=== PATIENT | male | born 1990 | race Caucasian/White ===

== ENCOUNTER 2022-01-11 12:15 | Observation (INO) | payer OTHER ==
--- OUTSIDE RECORDS SUMMARY | 2022-01-11 12:19 | XMS REPORT | Continuity of Care Document ---
:1990 Author Organization [facility] t Address [address] [place] [address] Care Team Providers Name Role Phone Pcp, Does Not Have A Primary Care Physician ANJU Attending Clinician Unavailable Nurse, Db Urgent [facility] Attending Clinician Unavailable Anju DEL VALLE Attending Clinician Provider, Urgent Care Attending Clinician Unavailable Elsa KENNEDY Attending Clinician ELSA Attending Clinician Unavailable Payers Payer Name Policy Type Policy Number Effective Date Expiration Date [facility] [id number] 2019 CHOICE 00:00:00 Problems Condition Condition Condition Status Onset Resolution Last Treating Co mments Source Name Details Category Date Date Treatment Clinician Date No known No known Disease Unive rs active active ity of problems problems [facility] Allergies, Adverse Reactions, Alerts Allergy Allergy Status Severity Reaction(s) Onset Inactive Treating Comm ents Source Name Type Date Date Clinician NO KNOWN Drug Active Univers ALLERGIE Class ity of S [facility] Social History Social Habit Start Date Stop Date Quantity Comments Source Exposure to Not sure University SARS-CoV-2 [facility] (event) [place] Alcohol intake 2021-03-14 2021-03-14 Current drinker Unive rsity of 00:00:00 00:00:00 of alcohol [facility] (finding) [place] Tobacco use and 2021-03-14 2021-03-14 Never used Universit y of exposure 00:00:00 00:00:00 [facility] Sex Ass[birth year] At [birth year] Universit y of 00:00:00 00:00:00 [facility] Smoking Status Start Date Stop Date Source Former smoker 2021-03-14 00:00:00 2021-03-14 00:00:00 [facility] Medications Ordered Filled Start Stop Current Ordering Indication Dosage Frequency Signature Comments Components Source Medication Medication Date Date Medication? Clinician (SIG) Name Name No known No Univers medications 03-14 ity of 10:56: [place] [facility] cephALEXin 2020- No [id number] 500mg Take 1 Univers 500 mg 03-14 tablet by ity of tablet 00:00: 04:59 mouth 2 [place] 00 :00 (two) Medical times Branch daily for 5 days. May use capsules Vital Signs Vital Name Observation Time Observation Value Comments Source Systolic blood 2021-03-14 15:36:00 123 mm[Hg] Univer sity [facility] Diastolic blood 2021-03-14 15:36:00 72 [facility]Hg[facility] 2021-03-14 15:36:00 67 /min [facility] Body temperature 2021-03-14 15:36:00 36.89 [facility] Respiratory rate 2021-03-14 15:36:00 13 /min [facility] Body height 2021-03-14 15:36:00 177.8 cm [facility] Body weight 2021-03-14 15:36:00 74.844 kg [facility] BMI 2021-03-14 15:36:00 23.68 kg/m2 [facility] Oxygen saturation in 2021-03-14 15:36:00 98 /min [facility] Arterial blood by [facility] Pulse oximetry Branch Procedures This patient has no known procedures. Encounters Start End Encounter Admission Attending Care Care Encounter Source Date/Time Date/Time Type Type Clinicians Facility Department ID 2022-01-09 2022-01-09 Outpatient R ANJU [facility] [id number] Univers 13:20:00 13:35:25 ELVISBRAEDEN johnson [facility]ly [facility] 2022-01-09 2022-01-09 Nurse Nurse, James [facility] [id number] Univers 13:20:00 13:35:25 [id number] [facility] [id number] Holger as LIZANDRO?BLEA [phone] Al farhad STONEEY [address] [place] [facility] 2022-01-09 2022-01-09 Outpatient R [facility] [id number] Univers 13:20:00 13:20:00 [id number] [facility] 2021-03-14 2021-03-14 Urgent Provider, [facility] Urgent [facility] [id number] Univers 10:21:38 10:41:38 [facility] [id number] [facility] [place] [id number] Holger as Professio [phone] Al farhad fajardo [address] [place] [address] Office [address] 2021-03-14 2021-03-14 [id number] Univers 10:20:00 10:20:00 ALCIDES [facility] Results This patient has no known results.
[2022-01-11 14:04] LABS: Urine Blood Negative (Negative); Urine Glucose Negative (Negative); Urine Protein Negative (Negative); Urine Specific Gravity >=1.030 (1.005-1.030); Urine pH 5.5 (5.0-7.0)
[2022-01-11] MEDS ORDERED: FAMOTIDINE 20 MG/2 ML VIAL IV ONE (14:11)
[2022-01-11] MEDS ORDERED: NA CHLORIDE 0.9% 1,000 ML ONE ×2 (14:11→22:15)
[2022-01-11] MEDS ORDERED: CEFTRIAXONE 1000 MG/VIAL ONE (14:11)
[2022-01-11 14:22] LABS: Absolute Lymphocytes (CBC) 1.9 K/uL (0.7-4.9); Hematocrit 44.5 % (39.6-49.0); Lymphocytes % 21.9 % (15.3-44.8); RBC Red Blood Cell Count 4.78 M/uL (4.33-5.43)
[2022-01-11 14:39] LABS: Bilirubin Direct 0.2 mg/dL (0-0.2); Bilirubin Total 0.8 mg/dL (0.2-1.0); Potassium 3.6 mmol/L (3.5-5.1); Protein, Total 7.5 g/dL (6.4-8.2)
--- NOTE | 2022-01-11 15:33 | RAD REPORT ---
EXAM DESCRIPTION: CT - Abdomen Pelvis W Contrast - 01/11/2022 2:57 pm CLINICAL HISTORY: Abdominal pain COMPARISON: none. TECHNIQUE: Computed axial tomography of the abdomen pelvis was obtained. 100 cc Isovue-300 was admin istered intravenously. Oral contrast was not requested which limits evaluation of bowel. All CT scans are performed using dose optimization technique as appropriate and may include automated exposure control or mA/KV adjustment according to patient size. FINDINGS: The liver, spleen, pancreas, adrenal and kidneys appear unremarkable. The appendix is mildly dilated. It contains submucosal lipomatosis. There is minimal adjacent strandi ng. There is no evidence of diverticulitis. IMPRESSION: The appendix contains submucosal lipomatosis probably an incidental finding. The appendi x is mildly enlarged. There is a minimal stranding adjacent to the appendix. This is equivocal for ap pendicitis and should be correlated clinically.
--- NOTE | 2022-01-11 16:32 | ER ---
Nurse's Notes [facility] Name: John Hoffmann Age: 31 yrs Sex: Male : 1990 Arrival Date: 01/11/2022 Time: 12:19 Bed 30 Private MD: Diagnosis: Lower abdominal pain, unspecified-equivocal appendicitis;Nausea Presentation: 01/11 12:43 Chief complaint: Patient states: " I've been seeing a urologist for abut 3 weeks now ph for testicular pain but today it's radiating to my penis." Also reports frequent urination at night, epigastric pain and nausea. Coronavirus screen: Vaccine status: Patient reports being unvaccinated. Ebola Screen: No symptoms or risks identified at this time. Initial Sepsis Screen: Does the patient meet any 2 criteria? No. Patient's initial sepsis screen is negative. Does the patient have a suspected source of infection? No. Patient's initial sepsis screen is negative. Risk Assessment: Do you want to hurt yourself or someone else? Patient reports no desire to harm self or others. Onset of symptoms. 12:43 Method Of Arrival: Ambulatory ph 12:43 Acuity: FRENCH 3 ph Historical: - Allergies: 12:46 No Known Allergies; ph - Home Meds: 12:46 Humira subcutaneous [Active]; ph 18:57 tramadol 50 mg oral tab 1 tab BID for pain [Active]; tizanidine 4 mg oral tab 1 tab eo2 nightly [Active]; alfuzosin 10 mg oral Tb24 1 tab nightly [Active]; pantoprazole 40 mg oral TbEC every other day [Active]; - PMHx: 12:46 ankylosing spondylitis; ph 18:57 chronic back pain; eo2 - Immunization history:: Adult Immunizations unknown. - Social history:: Smoking status: Patient denies any tobacco usage or history of. Screenin:00 Abuse screen: Denies threats or abuse. Denies injuries from another. eo2 14:00 Nutritional screening: No deficits noted. Tuberculosis screening: No symptoms or risk eo2 factors identified. Fall Risk None identified. Assessment: 14:15 General: Appears in no apparent distress. distressed, Behavior is calm, cooperative. eo2 Pain: Complains of pain in pelvis and perineum and groin and suprapubic area and epigastric area. Neuro: Level of Consciousness is awake, alert, obeys commands, Oriented to person, place, time, situation, Denies dizziness, headache. Cardiovascular: Denies chest pain, shortness of breath, Heart tones S1 S2 Capillary refill < 3 seconds. Respiratory: Reports shortness of breath at rest Airway is patent Trachea midline Respiratory effort is even, unlabored, Denies cough, shortness of breath. GI: Abdomen is flat, Bowel sounds present X 4 quads. Reports epigastric pain, nausea. : Reports urinary frequency. Vital Signs: 12:43 BP 144 / 95; Pulse 90; Resp 18; Temp 97.9; Pulse Ox 100% on R/A; Weight 78.93 kg; ph Height 5 ft. 10 in. (177.80 cm); 14:00 BP 118 / 81; Pulse 79; Resp 15; Pulse Ox 100% ; Pain 7/10; eo2 17:00 BP 109 / 79; Pulse 68; Resp 15; Pulse Ox 99% ; Pain 0/10; eo2 18:00 BP 96 / 66; Pulse 69; Resp 15; Pulse Ox 100% ; Pain 0/10; eo2 12:43 Body Mass Index 24.97 (78.93 kg, 177.80 cm) ph ED Course: 12:19 Patient arrived in ED. mr 12:46 Triage completed. ph 12:48 Arm band placed on. ph 13:14 Chris Mcgarry MD is Attending Physician. mela 13:15 Xochilt Denise RN is Primary Nurse. eo2 13:57 Urine Culture Sent. mh5 14:00 No provider procedures requiring assistance completed. eo2 14:02 Inserted saline lock: 22 gauge in right antecubital area, using aseptic technique. eo2 Blood collected. 14:15 Patient has correct armband on for positive identification. Placed in gown. Bed in low mh5 position. Call light in reach. Warm blanket given. Pulse ox on. NIBP on. 14:15 Urine collected: clean catch specimen, clear. mh5 14:32 Basic Metabolic Panel Sent. eo2 14:57 CT Abd/Pelvis - IV Contrast Only In Process Unspecified. EDMS 16:27 Bridgett Menendez MD is Hospitalizing Provider. mela 19:10 Report given to Satish RECINOS. eo2 Administered Medications: 14:25 Drug: NS 0.9% 1000 ml Route: IV; Rate: 1 bolus; Site: right antecubital; eo2 18:41 Follow up: Response: No adverse reaction; IV Status: Completed infusion; IV Intake: eo2 1000ml 14:25 Drug: Pepcid (famotidine) 20 mg Route: IVP; Site: right antecubital; eo2 15:30 Follow up: Response: No adverse reaction eo2 14:28 Drug: Rocephin (cefTRIAXone) 1 grams Route: IV; Rate: per protocol; Site: right eo2 antecubital; 15:30 Follow up: Response: No adverse reaction; IV Status: Completed infusion; IV Intake: [id number] Intake: 15:30 IV: 10ml; Total: 10ml. eo2 18:41 IV: 1000ml; Total: 1010ml. eo2 Outcome: 16:31 Decision to Hospitalize by Provider. [facility] 01/12 14:28 Patient left the ED. Signatures: Dispatcher [employer] EDMS Chris Mcgarry MD MD cha Rivera, Fauzia Francis RN RN Kathy Sterling RN RN Zulema Lynn [facility] Xochilt Denise RN RN eo2 Corrections: (The following items were deleted from the chart) 01/11 18:41 16:00 IV Status: Completed infusion; IV Intake: 1000ml eo2 eo2 19:10 12:46 Home Meds: Tramadol Oral; eo2
--- NOTE | 2022-01-11 16:32 | EDPHYS ---
Physician Documentation [facility] Name: John Hoffmann Age: 31 yrs Sex: Male : 1990 Arrival Date: 01/11/2022 Time: 12:19 Bed 30 Private MD: LEAH Physician Chris Mcgarry HPI: 01/11 13:30 This 31 yrs old Male presents to ER via Ambulatory with complaints of Urinary mela Problem, Groin Pain, Nausea. 13:30 The patient presents to the emergency department with nausea, that is mild. Onset: The mela symptoms/episode began/occurred 1 week(s) ago. Possible causes: unknown. The symptoms are aggravated by nothing. The symptoms are alleviated by remaining still. Associated signs and symptoms: The patient has no apparent associated signs or symptoms. Severity of symptoms: At their worst the symptoms were mild in the emergency department the symptoms are unchanged. The patient has not experienced similar symptoms in the past. Historical: - Allergies: 12:46 No Known Allergies; ph - Home Meds: 12:46 Humira subcutaneous [Active]; ph 18:57 tramadol 50 mg oral tab 1 tab BID for pain [Active]; tizanidine 4 mg oral tab 1 tab eo2 nightly [Active]; alfuzosin 10 mg oral Tb24 1 tab nightly [Active]; pantoprazole 40 mg oral TbEC every other day [Active]; - PMHx: 12:46 ankylosing spondylitis; ph 18:57 chronic back pain; eo2 - Immunization history:: Adult Immunizations unknown. - Social history:: Smoking status: Patient denies any tobacco usage or history of. ROS: 13:31 Constitutional: Negative for fever, chills, and weight loss, Eyes: Negative for injury, mela pain, redness, and discharge, ENT: Negative for injury, pain, and discharge, Neck: Negative for injury, pain, and swelling, Cardiovascular: Negative for chest pain, palpitations, and edema, Respiratory: Negative for shortness of breath, cough, wheezing, and pleuritic chest pain, Back: Negative for injury and pain, MS/Extremity: Negative for injury and deformity, Skin: Negative for injury, rash, and discoloration, Neuro: Negative for headache, weakness, numbness, tingling, and seizure, Psych: Negative for depression, anxiety, suicide ideation, homicidal ideation, and hallucinations, Allergy/Immunology: Negative for hives, rash, and allergies, Endocrine: Negative for neck swelling, polydipsia, polyuria, polyphagia, and marked weight changes, Hematologic/Lymphatic: Negative for swollen nodes, abnormal bleeding, and unusual bruising. 13:31 Abdomen/GI: Positive for abdominal pain, of the epigastric area and suprapubic area. 13:31 : Positive for urinary symptoms, penile pain, of the perineum. Exam: 13:31 Constitutional: This is a well developed, well nourished patient who is awake, alert, mela and in no acute distress. Head/Face: Normocephalic, atraumatic. Eyes: Pupils equal round and reactive to light, extra-ocular motions intact. Lids and lashes normal. Conjunctiva and sclera are non-icteric and not injected. Cornea within normal limits. Periorbital areas with no swelling, redness, or edema. ENT: Nares patent. No nasal discharge, no septal abnormalities noted. Tympanic membranes are normal and external auditory canals are clear. Oropharynx with no redness, swelling, or masses, exudates, or evidence of obstruction, uvula midline. Mucous membranes moist. Neck: Trachea midline, no thyromegaly or masses palpated, and no cervical lymphadenopathy. Supple, full range of motion without nuchal rigidity, or vertebral point tenderness. No Meningismus. Chest/axilla: Normal chest wall appearance and motion. Nontender with no deformity. No lesions are appreciated. Cardiovascular: Regular rate and rhythm with a normal S1 and S2. No gallops, murmurs, or rubs. Normal PMI, no JVD. No pulse deficits. Respiratory: Lungs have equal breath sounds bilaterally, clear to auscultation and percussion. No rales, rhonchi or wheezes noted. No increased work of breathing, no retractions or nasal flaring. Back: No spinal tenderness. No costovertebral tenderness. Full range of motion. Male : Normal genitalia with no discharge or lesions. Skin: Warm, dry with normal turgor. Normal color with no rashes, no lesions, and no evidence of cellulitis. Neuro: Awake and alert, GCS 15, oriented to person, place, time, and situation. Cranial nerves II-XII grossly intact. Motor strength 5/5 in all extremities. Sensory grossly intact. Cerebellar exam normal. Normal gait. Psych: Awake, alert, with orientation to person, place and time. Behavior, mood, and affect are within normal limits. 13:31 Abdomen/GI: Inspection: abdomen appears normal, Bowel sounds: normal, Palpation: mild abdominal tenderness, in the epigastric area, Liver: no appreciated palpable abnormalities, Hernia: not appreciated. 13:31 : CVA tenderness, is absent, Male external genitalia: normal, Bladder: is normal, Rectal exam: is normal, Sexual behavior: the patient is sexually active, and reports a single partner. 15:46 ECG was reviewed by the Attending Physician. mela Vital Signs: 12:43 BP 144 / 95; Pulse 90; Resp 18; Temp 97.9; Pulse Ox 100% on R/A; Weight 78.93 kg; ph Height 5 ft. 10 in. (177.80 cm); 14:00 BP 118 / 81; Pulse 79; Resp 15; Pulse Ox 100% ; Pain 7/10; eo2 17:00 BP 109 / 79; Pulse 68; Resp 15; Pulse Ox 99% ; Pain 0/10; eo2 18:00 BP 96 / 66; Pulse 69; Resp 15; Pulse Ox 100% ; Pain 0/10; eo2 12:43 Body Mass Index 24.97 (78.93 kg, 177.80 cm) ph MDM: 13:14 Patient medically screened. mela 13:35 Differential diagnosis: Nonspecific abd pain, UTI, prostatitis, urethritis. Data mela reviewed: vital signs, nurses notes, lab test result(s), radiologic studies. Data interpreted: secured entrance monitor: not applicable for this patient encounter. rate is 90 beats/min, rhythm is regular, Pulse oximetry: on room air is 100 %. Test interpretation: by ED physician or midlevel provider:. Counseling: I had a detailed discussion with the patient and/or guardian regarding: the historical points, exam findings, and any diagnostic results supporting the discharge/admit diagnosis, lab results, radiology results. 01/11 13:29 Order name: Basic Metabolic Panel; Complete Time: 14:41 [facility] 01/11 13:29 Order name: CBC with Diff; Complete Time: 14:38 [facility] 01/11 13:29 Order name: Hepatic Function; Complete Time: 14:41 [facility] 01/11 13:29 Order name: Lipase; Complete Time: 14:41 [facility] 01/11 13:29 Order name: Urine Culture [facility] 01/11 14:04 Order name: Urine Dipstick-Ancillary; Complete Time: 14:16 [facility] 01/11 13:29 Order name: CT Abd/Pelvis - IV Contrast Only; Complete Time: 15:43 [facility] 01/11 17:14 Order name: SARS-COV-2 RT PCR (Document "Date of Onset" if Symptomatic); Complete Time: iw 21:07 01/11 21:20 Order name: CBC with Automated Diff [facility] 01/11 21:20 Order name: CBC with Automated Diff [facility] 01/11 21:20 Order name: Comprehensive Metabolic Panel [facility] 01/11 21:20 Order name: Comprehensive Metabolic Panel [facility] 01/11 21:27 Order name: Lipase [facility] 01/12 03:28 Order name: Lipase [facility] 01/11 13:29 Order name: IV Saline Lock; Complete Time: 14:31 [facility] 01/11 13:29 Order name: Labs collected and sent; Complete Time: 14:31 [facility] 01/11 13:29 Order name: Urine Dipstick-Ancillary (obtain specimen); Complete Time: 13:58 [facility] 01/11 16:33 Order name: Abdomen [facility] 01/11 21:20 Order name: CONS Physician Consult [facility] 01/11 21:20 Order name: NPO [facility] 01/12 08:14 Order name: CT [facility] EC:46 Rate is 79 beats/min. Rhythm is regular. QRS [place] is Normal. NC interval is normal. QRS mela interval is normal. QT interval is normal. No Q waves. T waves are Normal. No ST changes noted. Clinical impression: Normal ECG and No evidence of ischemia. Interpreted by me. Reviewed by me. Administered Medications: 14:25 Drug: NS 0.9% 1000 ml Route: IV; Rate: 1 bolus; Site: right antecubital; eo2 18:41 Follow up: Response: No adverse reaction; IV Status: Completed infusion; IV Intake: eo2 1000ml 14:25 Drug: Pepcid (famotidine) 20 mg Route: IVP; Site: right antecubital; eo2 15:30 Follow up: Response: No adverse reaction eo2 14:28 Drug: Rocephin (cefTRIAXone) 1 grams Route: IV; Rate: per protocol; Site: right eo2 antecubital; 15:30 Follow up: Response: No adverse reaction; IV Status: Completed infusion; IV Intake: [id number] Disposition Summary: 01/11/22 16:31 Hospitalization Ordered Hospitalization Status: Observation [facility] Provider: Bridgett Menendez cha Condition: Stable mela Problem: new mela Symptoms: have improved mela Bed/Room Type: Standard mela Location: [facility] ER HOLD(01/11/22 21:48) Room Assignment: ERHOLD-(01/11/22 21:48) cg Diagnosis - Lower abdominal pain, unspecified - equivocal appendicitis mela - Nausea mela Discharge Instructions: - Discharge Summary Sheet mela - Abdominal Pain, Adult mela - Dysuria mela - Pelvic Pain, Male mela Forms: - Medication Reconciliation Form mela - SBAR form [facility] Prescriptions: - Ibuprofen 600 mg Oral Tablet - take 1 tablet by ORAL route every 6 hours As needed take with food; 20 tablet; mela Refills: 0, Product Selection Permitted - Doxycycline Hyclate 100 mg Oral Tablet - take 1 tablet by ORAL route every 12 hours; 20 tablet; Refills: 0, Product [facility] Selection Permitted - Tylenol-Codeine #3 300 mg-30 mg Oral - take 2 tablet by ORAL route every 6 hours; 20 tablet; Refills: 0, Product [facility] Selection Permitted Signatures: Dispatcher [employer] EDChris Rodríguez MD MD cha Hall, Patricia RN RN Dinah Lopes RN RN Xochilt Denise RN RN eo2 Sweta Velasco PA PA sb3 Corrections: (The following items were deleted from the chart) 19:10 12:46 Home Meds: Tramadol Oral; eo2 21:48 16:31 Telemetry/MedSurg (observation) [facility] 21:48 16:31 [facility]
[2022-01-11] MEDS ORDERED: MORPHINE 2 MG/ML SYR IV PRN (21:17)
[2022-01-11] MEDS ORDERED: ACETAMINOPHEN 500 MG TAB PO PRN (21:17)
[2022-01-11] MEDS ORDERED: ONDANSETRON 4 MG/2 ML VIAL IV PRN (21:17)
--- NOTE | 2022-01-11 21:22 | P.HP ---
Certification for Inpatient Patient admitted to: Inpatient With expected LOS: >2 Midnights Patient will require the following post-hospital care: None Practitioner: I am a practitioner with admitting privileges, knowledge of patient current condition, hospital course, and medical plan of care. Services: Services provided to patient in accordance with Admission requirements found in Title 42 Section 412.3 of the Code of Federal Regulations Patient History Date of Service: 01/11/22 Reason for admission: Abdominal pain History of Present Illness: Patient is a 31-year-old who came to the hospital with right lower quadrant abdominal pain. Patient has had multiple work-ups in the past for ankylosing spondylitis. However, he states that his HLA-B 27 gene was negative. He was still started on Humira for treatment. He apparently has significant inflammation of his SI joint-sacroiliac. Patient has been having significant pain. Patient came to the ER and CT revealed equivocal appendicitis. Decision was made to admit the patient to the hospital for further evaluation. Spoke to general surgery and will repeat the CT scan this morning. Allergies No Known Allergies Allergy (Unverified 01/11/22 22:04) Home Medications: Adalimumab [Humira] 40 mg SQ [facility] 01/11/22 Alfuzosin HCl 10 mg PO BEDTIME 01/11/22 Pantoprazole [Protonix Tab*] 40 mg PO [facility]EC[facility] 01/11/22 Tizanidine HCl 4 mg PO BEDTIME 01/11/22 Tramadol HCl [Ultram] 50 mg PO BID 01/11/22 - Past Medical/Surgical History -: Sacroiliitis Past Surgical History: Patient denies surgical history - Family History Father Family History: Reviewed- Non-Contributory - Social History Smoking Status: Never smoker Alcohol use: No CD- Drugs: No Review of Systems 10-point ROS is otherwise unremarkable Physical Examination - Vital Signs Temperature: 98 F Blood Pressure: 120/80 Pulse: 80 Respirations: 18 Pulse Ox (%): 95 - Physical Exam General: Alert, In no apparent distress, Oriented x3 HEENT: Atraumatic, PERRLA, Mucous membr. moist/pink, EOMI, Sclerae nonicteric Neck: Supple, 2+ carotid pulse no bruit, No LAD, Without JVD or thyroid abnormality Respiratory: Clear to auscultation bilaterally, Normal air movement Cardiovascular: Regular rate/rhythm, Normal S1 S2, No murmurs Gastrointestinal: Normal bowel sounds, Soft and benign, Non-distended, No rebound, No guarding, Tenderness Musculoskeletal: No clubbing, No swelling, Tenderness Integumentary: No rashes Neurological: Normal gait, Normal speech, Normal strength at 5/5 x4 extr, Normal tone, Sensation intact, Cranial nerves 3-12 intact, Normal affect Lymphatics: No axilla or inguinal lymphadenopathy - Studies Laboratory Data (last 24 hrs) 01/11/22 14:02: WBC 8.60, Hgb 15.6, Hct 44.5, Plt Count 149 L 01/11/22 14:02: Sodium 139, Potassium 3.6, BUN 22 H, Creatinine 1.05, Glucose 95, Total Bilirubin 0.8, AST 18, ALT 40, Alkaline Phosphatase 46, Lipase 69 L Assessment & Plan - Problems (Diagnosis) (1) Appendicitis Current Visit: Yes Status: Acute - Plan 1. Continue with IV hydration 2. Continue with IV antibiotics 3. Continue with pain control 4. NPO 5. General surgery consultation; 6. Serial H&H, and we will monitor CBC, BMP, LFTs and lipase along with electrolytes. 7. GI and DVT prophylaxis Discharge Plan: Home Plan to discharge in: 24 Hours - Advance Directives Does patient have a Living Will: No Does patient have a Durable POA for Healthcare: No - Code Status/Comfort Care Code Status Assessed: Yes Code Status: Full Code Critical Care: No Time Spent Managing PTS Care (In Minutes): 45
[2022-01-11] MEDS: NA CHLORIDE 0.9% 1,000 ML IV SCH (22:18)
[2022-01-11] MEDS ORDERED: TRAMADOL HCL 50 MG TAB ONE (22:51)
[2022-01-11] MEDS: TRAMADOL HCL 50 MG TAB PO SCH (22:56)
[2022-01-11 23:16] VITALS: O2SAT 94; BMI 24.3
[2022-01-12] MEDS ORDERED: NA CHLORIDE 0.9% 100 ML IV ONE ×2 (00:28→08:10)
[2022-01-12] MEDS: PIPER TAZO 3.375 GM in NA CHLORIDE 0.9% 100 ML IV SCH ×2 (00:28→08:09)
[2022-01-12] MEDS ORDERED: PIPERACIL/TAZO 3.375 GM VIAL IV ONE ×2 (00:29→08:11)
[2022-01-12 03:13] LABS: Hematocrit 43.7 % (39.6-49.0); Lymphocytes % 30.2 % (15.3-44.8); MPV 6.9 fL (7.6-11.3); RBC Red Blood Cell Count 4.64 M/uL (4.33-5.43)
[2022-01-12 03:25] LABS: ALT/SGPT 34 U/L (12-78); AST/SGOT 14 U/L (15-37); Albumin 3.5 g/dL (3.4-5.0); Alkaline Phosphatase 41 U/L (45-117); BUN Blood Urea Nitrogen 16 mg/dL (7-18); Bicarbonate 29 mmol/L (21-32); Bilirubin Total 0.8 mg/dL (0.2-1.0); Glucose Level 98 mg/dL (74-106); Lipase 62 U/L (73-393); Potassium 4.1 mmol/L (3.5-5.1); Protein, Total 6.5 g/dL (6.4-8.2); Sodium Level 140 mmol/L (136-145)
[2022-01-12] MEDS ORDERED: INFLUENZA VACCINE (for 6+ mo) 0.5 ML DOSE IMVAC ONE (08:00)
[2022-01-12] MEDS: TRAMADOL HCL 50 MG TAB PO SCH ×2 (08:10→12:13)
[2022-01-12] MEDS ORDERED: MORPHINE 2 MG/ML SYR ONE (08:10)
[2022-01-12] MEDS ORDERED: NA CHLORIDE 0.9% 1,000 ML ONE (08:11)
--- NOTE | 2022-01-12 08:14 | RAD REPORT ---
EXAM DESCRIPTION: CTAbdomen Pelvis W Contrast - 01/12/2022 7:08 am CLINICAL HISTORY: Abdominal pain. r/o appy COMPARISON: Abdomen Pelvis W Contrast dated 01/11/2022 TECHNIQUE: Biphasic CT imaging of the abdomen and pelvis was performed with 100 ml non-ionic IV cont rast. All CT scans are performed using dose optimization technique as appropriate and may include automated exposure control or mA/KV adjustment according to patient size. FINDINGS: Linear atelectasis is seen in the right lung base. The liver, spleen, pancreas, adrenal glands and kidneys are within normal limits. No bowel obstruction, free air, free fluid or abscess. The appendix is normal. No evidence of signi ficant lymphadenopathy. No suspicious bony findings. IMPRESSION: No acute intra-abdominal or pelvic finding.
[2022-01-12] MEDS: NA CHLORIDE 0.9% 1,000 ML IV SCH (08:27)
[2022-01-12] MEDS ORDERED: TRAMADOL HCL 50 MG TAB ONE (12:16)
[2022-01-12 13:03] VITALS: BP 120/80; TEMP 98
--- NOTE | 2022-01-12 13:06 | P.DS ---
Discharge Date: 01/12/22 Disposition: ROUTINE DISCHARGE Discharge Condition: GOOD Reason for Admission: Abdominal pain Consultations: General surgeon - Problems (1) Appendicitis Current Visit: Yes Status: Acute Brief History of Present Illness: Patient is a 31-year-old who came to the hospital with right lower quadrant abdominal pain. Patient has had multiple work-ups in the past for ankylosing spondylitis. However, he states that his HLA-B 27 gene was negative. He was still started on Humira for treatment. He apparently has significant infl ammation of his SI joint-sacroiliac. Patient has been having significant pain. Patient came to the ER and CT revealed equivocal appendicitis. Decision was made to admit the patient to the hospital for further evaluation. Spoke to general surgery and will repeat the CT scan this morning. Hospital Course: Repeat imaging studies did not reveal any significant abnormalities. Patient lab data is stable. Spoke with general surgery and they will follow-up with the patient as an outpatient. Patient will be diet and should discharge afterwards. Vital Signs/Physical Exam: Temp Pulse Resp BP Pulse Ox 98 F 80 18 120/80 95 01/12/22 13:04 01/12/22 13:04 01/12/22 13:04 01/12/22 13:04 01/12/22 13:04 General: Alert, In no apparent distress, Oriented x3 Laboratory Data at Discharge: WBC 6.70 K/uL (4.3-10.9) D 01/12/22 02:53 Hgb 15.0 g/dL (13.6-17.9) 01/12/22 02:53 Hct 43.7 % (39.6-49.0) 01/12/22 02:53 Plt Count 148 K/uL (152-406) L 01/12/22 02:53 Sodium 140 mmol/L (136-145) 01/12/22 02:53 Potassium 4.1 mmol/L (3.5-5.1) 01/12/22 02:53 BUN 16 mg/dL (7-18) 01/12/22 02:53 Creatinine 0.95 mg/dL (0.55-1.3) 01/12/22 02:53 Glucose 98 mg/dL (74-106) 01/12/22 02:53 Total Bilirubin 0.8 mg/dL (0.2-1.0) 01/12/22 02:53 AST 14 U/L (15-37) L 01/12/22 02:53 ALT 34 U/L (12-78) 01/12/22 02:53 Alkaline Phosphatase 41 U/L (45-117) L 01/12/22 02:53 Lipase Cancelled 01/12/22 05:00 Home Medications: Adalimumab [Humira] 40 mg SQ SEECOM 01/11/22 Alfuzosin HCl 10 mg PO BEDTIME 01/11/22 Pantoprazole [Protonix Tab*] 40 mg PO SEECOM 01/11/22 Tizanidine HCl 4 mg PO BEDTIME 01/11/22 Tramadol HCl [Ultram] 50 mg PO BID 01/11/22 Physician Discharge Instructions: -DC IV and DC home -Follow-up with PCP in 1 to 2 weeks -Follow-up with general surgery, Dr. Lynn, on Tuesday -Please call Dr. Menendez at [phone] if any questions regarding hospital stay -Please call nursing station at [phone] if any nursing or medication questions -Return to the emergency room if symptoms worsen Diet: Regular Activity: Fall precautions Followup: Marco Arevalo MD [Primary Care Provider] - Time spent managing pt's care (in minutes): 35
--- NOTE | 2022-01-12 16:23 | CON ---
Date of Consultation: 01/12/2022 Reason For Service: Abdominal pain, mainly in epigastric area, sometimes in the left lower quadrant. History Of Present Illness: This is the case of a 31-year-old patient with known history of abdomina l problems. Up to the 4 months ago, he even had a colonoscopy and upper endoscopies. They have been trying to rule out inflammatory bowel disease including Crohn disease. Last night, once again he clark d some different discomfort. It was none in the right lower quadrant specifically, but it was mainly in the upper abdomen. He claimed mainly in the epigastric area. During the workup, the patient had a CAT scan done and called for equivocal findings in the appendix even though he is asymptomatic for that region. He believes he saw in that area some dilatation of the appendix with something that mi ght be some inflammation around the area, although the patient has no symptoms in that region. No Ro vsing signs. No psoas signs. The possibility of a coincidental appendix versus artifact is basicall y in question, so the patient was kept here for few more hours and a CAT scan was repeated once again that shows no findings on the area of appendix. The patient had this long history on and off with filiberto colunga. Once again, he has been worked up for inflammatory bowel disease. At this moment, he den ies any pain, dysuria, hematuria, hematochezia or melena. Denies any nausea or vomiting. Medical hi story is chronic abdominal pain. Medications: He used oral tramadol and also Humira. Past Medical History: Ankylosing spondylitis. Social History: He does not smoke. He does not drink alcohol. Review of Systems: Last time, he had nausea, right now has no nausea. No abdominal pain. No dysuria. No diarrhea. No hematemesis. Physical Examination: General: The patient is awake, alert. HEENT: Pupils are equal and reactive, anicteric. Neck: Supple. Chest: Clear. Abdomen: Soft and depressible. No guarding or rebound. No peritoneal signs. No Rovsing signs. No Luis signs. No psoas signs. Genitalia: Deferred. Extremities: Good capillary refill. Rectal: Deferred. Laboratory Data: WBC count last night was 8.6, today is 6. No antibiotics by mouth given. Hemoglob in of 15 and 15. Chemistry shows chloride is 109, total bilirubin of 0.8. UA is negative for nitrat es or blood. CAT scan of the abdomen and pelvis, we have too. Last night, he had a CAT scan of abdo men and pelvis and at that moment Dr. Olguin read it as the appendix contains submucosal lipomatosi s, probably an incidental finding. The appendix is mildly enlarged. There is minimal stranding sophy cent to the appendix. This is equivocal for appendicitis, correlated clinically. Today, the CAT sca n was done a few hours at this morning at 7 o'clock, basically read by Dr. Nieto. The appendix seems to be normal with no evidence of any lymphadenopathy. No abscess. No bowel obstruction. No free ai r. Assessment: It is a 31-year-old patient with chronic abdominal pain on and off. The pain at this mo ment appears mainly in epigastric area. He has history of gastric ulcer. 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 Clinically, he does not have symptoms of acute appendici tis. No Rovsing signs. No right lower quadrant pain. No psoas signs. WBC count is normal and CAT scan once again even hours later fail to show any inflammation or any worsening of the appendix, even though he has not been receiving any antibiotics. I offered him 2 options. He has an option of fol low the first CT scan and do a diagnostic lap possible appendectomy with benefits, alternatives, and risks fully explained to the patient. Option #2; since he feels better, he has no abdominal pain and he is tolerating diet, he can also give a trial of diet. If he gets sick, once again sign for diagn ostic lap. If he does not get sick at least in the next 48 to 72 hours, he should be in my office fo r another evaluation. We explained to him that even though he might not have acute appendicitis, we might have to repeat some imaging in the future to make sure there is nothing else on that area of th e appendix. We discussed the possibility of tumors and neoplasia in the appendix. This sometimes is not seen or have no other normal symptoms. He wants to have a second route. He does not want to clark ve surgical intervention at this time. He wants to do this electively. So if he tolerates diet, the n he might have a point on that. If he gets sick, once again he has to return immediately to the ER. Once again, we asked him to come my office in the next 48 to 72 hours for a followup evaluation if he gets to be discharged. TORIN/STEFF Voice ID: [id number] Report ID: [id number]
[2022-01-12] MEDS ORDERED: TIZANIDINE 4 MG TABLET PO SCH (21:00)
== END 2022-01-12 14:42 | disposition home health service (06) ==
LOC: ER 12:15 → ERHOLD 22:00 → INTOOBSV 22:00
PROVIDERS: ADMIT Hospitalist; ATTEND Hospitalist
DX: R10.13 Epigastric pain (principal); M46.1 Sacroiliitis, not elsewhere classified; Z20.822 Contact with and (suspected) exposure to COVID-19
CPT/HCPCS: 96365; 96361; 87088; 85025 ×2; 87086; 80048; 36415; 80076; 81003; 83690 ×2; 80053; 74177 ×2; 96375; 99284; U0003; Q9967 ×2; J2543 ×2; J2270; J7030 ×3; G0378 ×3

== ENCOUNTER 2022-02-17 09:16 | Observation (INO) | payer OTHER ==
[2022-02-16 16:26] LABS: Absolute Lymphocytes (CBC) 1.9 K/uL (0.7-4.9); Hematocrit 47.5 % (39.6-49.0); Lymphocytes % 29.4 % (15.3-44.8); MPV 7.3 fL (7.6-11.3)
[2022-02-16 16:41] LABS: BUN Blood Urea Nitrogen 13 mg/dL (7-18); Bicarbonate 29 mmol/L (21-32); Glucose Level 100 mg/dL (74-106); Potassium 3.9 mmol/L (3.5-5.1); Sodium Level 139 mmol/L (136-145)
--- NOTE | 2022-02-17 00:12 | HP ---
Date of Admission: 02/17/2022 Reason For Service: Right upper quadrant and right lower quadrant pain. History Of Present Illness: This is a case of a 31-year-old patient who came to us with multiple pro blems. He came to the ER not too long ago and he was even admitted to the hospital for 2 problems, r ight upper quadrant pain and right lower quadrant pain. During the workup, the patient seemed to hav e an abnormal appendix that by the next day seemed to resolve. He was sent home with evaluation when he comes back to the office. The patient already had a HIDA scan since we will also do electively t he workup for the gallbladder. HIDA scan shows biliary dyskinesia with low ejection fraction and dup lication of symptoms and exacerbation of the pain with a challenge done in [facility]. No previous gallston es seen. He stated he is having the same pain he has, what he described in the ER. The patient also has this right lower quadrant pain. The first CT scan showed abnormal appendix. The second CT scan did not show that, but he is still having right lower quadrant pain. It is on and off. Past Medical History: No history of inflammatory bowel disease. Family History: No history of inflammatory bowel disease. Allergies: NONE. Social History: He does not smoke. He does not drink alcohol. Review of Systems: Nausea, chronic pain, bloating, right upper quadrant pain, right lower quadrant pain. No constipatio n. No bright red blood per rectum. Physical Examination: General: The patient is awake and alert. HEENT: Pupils are equal and reactive. Anicteric. Neck: Supple. Chest: Clear. ABDOMEN: Right upper quadrant tenderness. No Luis's today. Right lower quadrant tenderness also shows abdominal pain, etiology of that is unknown. No hernias palpated. No mass palpated. Once aga in, it is near the area of his appendix. Rectal: Deferred. Extremities: Good capillary refill. Neuro: Cranial nerves 2-12 within normal limits. Assessment: Right upper quadrant pain and right lower quadrant pain. The initial plan on him was to repeat the CAT scan in the 4 weeks as a substitute for diagnostic laparoscopy. He is 4 weeks right now, and he is still having right lower quadrant pain. He wants a diagnostic laparoscopy instead of the CT scan. We have not been able to explain this right lower quadrant pain at the appendix, and th e pain became abnormal. He also wished the appendix to be removed at the same time. At the same karla e, we have an issue of biliary dyskinesia with exacerbation of symptoms and challenge. He also wants that at the same time to be taken care of, so it is there in the form of laparoscopic possible open cholecystectomy. Now, both procedures carry the individual the risks, which include infection, bleed ing, damage to adjacent structures, anesthesia complication, choledocholithiasis, bile leak, abscess, recurrence, pain, OR, even . He also understands maybe a negative appendix may not relieve in symptoms, may need more than 1 surgical intervention. He understands the diagnostic laparoscopy is a diagnostic procedure, may not treat his pain, but at the same time, we understand his point. He has a right lower quadrant pain that resembles appendicitis and the CAT scans are equivocal, and also he has right upper quadrant pain with the symptoms of gallbladder disease and biliary colic and 2 of th em coincidentally in the same patient. I understand his point. He preferred to have the appendix an d gallbladder removed. We discussed the different ways how to avoid that and also the risks of surge ry. He still wants to go for diagnostic lap, possible appendectomy, possible cholecystectomy with th e risks as above. After discussing all the findings with him, spent with him an hour and half discus sing and answering all this questions to his satisfaction, his mom also at bedside, that is what he wants, and basically I believe, there is clinical indication for both, so we are going to proceed with that. JHON Voice ID: [id number]
[2022-02-17] MEDS ORDERED: CEFOXITIN SODIUM 1 GM/VIAL ONE (09:32)
[2022-02-17] MEDS ORDERED: NA CHLORIDE 0.9% 50 ML ONE (09:32)
[2022-02-17] MEDS ORDERED: MIDAZOLAM HCL 2 MG/2 ML INJ ONE (10:31)
[2022-02-17] MEDS ORDERED: FENTANYL CITR 250 MCG/5 ML ONE (10:31)
[2022-02-17] MEDS ORDERED: propofoL 200 MG/20 ML VIAL IV ONE (10:31)
[2022-02-17] MEDS ORDERED: LIDOCAINE 1% MPF 5 ML VIAL ONE (10:31)
[2022-02-17] MEDS ORDERED: ROCURONIUM 50 MG/5 ML VIAL IV ONE (10:32)
[2022-02-17] MEDS ORDERED: SUCCINYLCHOLINE 20 MG/ML (10 ML) IV ONE (11:00)
[2022-02-17] MEDS ORDERED: ONDANSETRON 4 MG/2 ML VIAL ONE (12:06)
[2022-02-17] MEDS ORDERED: GLYCOPYRROLATE 0.2 MG/ML SYR ONE (12:06)
[2022-02-17] MEDS ORDERED: NEOSTIGMINE 1 MG/ML -5 ML ONE (12:06)
[2022-02-17] MEDS: Ringers Lactate 1,000 ML IV ONE ×2 (12:25→12:41)
--- NOTE | 2022-02-17 12:50 | P.BOP ---
Preoperative diagnosis: appendicitis, Acute cholecystitis, biliary dyskinesia, RLQ amd RUQ abd pain Postoperative diagnosis: same Primary procedure: 1. Diagnostic laparoscopy Secondary procedure: 2. Laparoscopic appendectomy Other procedure(s): 3. Laparoscopic Cholecystectomy All Round Butcher: NILE LILLY (HAND CLOTH CUTTER) Estimated blood loss: <20cc Specimen: GB, CHLOE Findings: see dicta Anesthesia: General Complications: None Transferred to: Recovery Room Condition: Good
[2022-02-17] MEDS ORDERED: ONDANSETRON 4 MG/2 ML VIAL IV PRN (12:51)
[2022-02-17] MEDS ORDERED: HYDROCODONE/APAP 5/325 MG TAB PO PRN (12:51)
[2022-02-17] MEDS ORDERED: SODIUM CHLORIDE 0.9% 20 ML VIAL IV PRN (12:51)
[2022-02-17] MEDS ORDERED: MEPERIDINE HCL 25 MG/ML SYR ONE (13:09)
--- OUTSIDE RECORDS SUMMARY | 2022-02-17 13:44 | XMS REPORT | Continuity of Care Document ---
:1990 Author Organization [facility] t Address [address] [place] [address] [address]. [address] [place] [address] Care Team Providers Name Role Phone Pcp, Does Not Have A Primary Care Physician ANJU Attending Clinician Unavailable Nurse, Db [facility] Attending Clinician Unavailable Anju DEL VALLE Attending Clinician Provider, Urgent Care Attending Clinician Unavailable Elsa KENNEDY Attending Clinician ELSA Attending Clinician Unavailable Payers Payer Name Policy Type Policy Number Effective Date Expiration Date Formerly [facility] [id number] 2019 CHOICE 00:00:00 Problems Condition Condition Condition Status Onset Resolution Last Treating Co mments Source Name Details Category Date Date Treatment Clinician Date No known No known Disease Unive rs active active ity of problems problems [facility] Allergies, Adverse Reactions, Alerts Allergy Allergy Status Severity Reaction(s) Onset Inactive Treating Comm ents Source Name Type Date Date Clinician NO KNOWN Drug Active Univers ALLERGIE Class ity of S [facility] Social History Social Habit Start Date Stop Date Quantity Comments Source Exposure to Not sure University SARS-CoV-2 [facility] (event) Branch Alcohol intake 2021-03-14 2021-03-14 Current drinker Unive rsity of 00:00:00 00:00:00 of alcohol [facility] (finding) [place] Tobacco use and 2021-03-14 2021-03-14 Never used Universit y of exposure 00:00:00 00:00:00 [facility] Sex Assigned At [birth year] Universit y of 00:00:00 00:00:00 [facility] Smoking Status Start Date Stop Date Source Former smoker 2021-03-14 00:00:00 2021-03-14 00:00:00 [facility] Medications Ordered Filled Start Stop Current Ordering Indication Dosage Frequency Signature Comments Components Source Medication Medication Date Date Medication? Clinician (SIG) Name Name No known No Univers medications 24 ity of 10:56: [place] [facility] cephALEXin 2020- No [id number] 500mg Take 1 Univers 500 mg 03-1430 tablet by ity of tablet 00:00: 04:59 mouth 2 [place] 00 :00 (two) Medical times [place] daily for 5 days. May use capsules Vital Signs Vital Name Observation Time Observation Value Comments Source Systolic blood 2021-03-14 15:36:00 123 mm[Hg] [facility] Diastolic blood 2021-03-14 15:36:00 72 mm[facility]Hg[facility] 2021-03-14 15:36:00 67 /min [facility] Body temperature 2021-03-14 15:36:[address] [facility] Respiratory rate 2021-03-14 15:36:00 13 /min [facility] Body height 2021-03-14 15:36:00 177.8 cm [facility] Body weight 2021-03-14 15:36:00 74.844 kg [facility] BMI 2021-03-14 15:36:00 23.68 kg/m2 [facility] Oxygen saturation in 2021-03-14 15:36:00 98 /min [facility] Arterial blood by [facility] Pulse oximetry Branch Procedures This patient has no known procedures. Encounters Start End Encounter Admission Attending Care Care Encounter Source Date/Time Date/Time Type Type Clinicians Facility Department ID 2022-01-09 2022-01-09 Outpatient Katy RENE [facility] [id number] [facility] 13:20:00 13[facility]35:[facility]22-01-09 2022-01-09 Nurse Nurse, James [facility] [id number] Univers 13:20:00 13:35:25 Visit Anju [facility] [id number] ity of [place] [id number] Holger as LIZANDRO?BLEA [phone] [place] far[place] STONEEY [address] [place] [facility] 2022-01-09 2022-01-09 Outpatient R [facility] [id number] Univers 13:20:00 13:20:00 [id number] [facility] 2021-03-14 2021-03-14 Urgent Provider, [facility] Urgent [facility] [id number] Univers 10:21:38 10:41:38 [facility] [id number] ity of [place] [id number] Holger as Professio [phone] [place] far[place] [address] Office [address] 2021-03-14 2021-03-14 [facility] [id number] Univers 10:20:00 10:20:00 ALCIDES [facility] Results This patient has no known results.
[2022-02-17] MEDS ORDERED: KETOROLAC 30 MG/ML INJ ONE (13:49)
[2022-02-17 14:01] VITALS: O2SAT 100
[2022-02-17] MEDS: NA CHLORIDE 0.9% 1,000 ML IV SCH (14:18)
[2022-02-17 14:41] VITALS: BMI 24.3
--- NOTE | 2022-02-17 15:28 | OP ---
Date of Procedure: 02/17/2022 Surgeon: Sebastien Lynn MD Medicinal Chemist: Eneida Granda. Preoperative Diagnoses: Acute appendicitis, acute cholecystitis biliary dyskinesia, right upper quad rant recurrent abdominal pain, right lower quadrant recurrent abdominal pain. Postoperative Diagnoses: Acute appendicitis, acute cholecystitis biliary dyskinesia, right upper chi drant recurrent abdominal pain, right lower quadrant recurrent abdominal pain. Procedures: 1.Diagnostic laparoscopy. 2.Laparoscopic appendectomy. 3.Laparoscopic cholecystectomy. Estimated Blood Loss: Less than 20 cc. Specimen: Gallbladder and appendix. Findings: The patient to our surprise has cholecystitis. We diagnosed with biliary dyskinesia. We went in that area, which shows an inflamed gallbladder. Also, we found the appendix to be asymmetric al in shape and color. The mid of the appendix was inflamed compared with the tip and the base and j udging by a previous CT scan that shows abnormalities in that area, I believe an appendectomy should be done and sent to pathology to rule out any intraluminal tumor. Complications: None. Condition: Stable. 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 He has been in the ER before even and admitted for abnormal appendix in the past, although it seems t o be improving later. He has a 1-month followup. The pain continued the same. He is more miserable . He is thinking about once again showing up in the ER. He came to our office. He was fully explai yu the findings of the gallbladder with duplication of symptoms on HIDA scan and that goes along wit h a working diagnosis that ER was seen several weeks ago. At the same time, he has right lower quadr ant tenderness right at the area of the appendix with at one point Rovsing sign positive. Based on t he CAT scan we had before and not just looking for cholecystitis but any other pathology and the appe ndix, then we discussed with him with the need for diagnostic laparoscopy. He wants the gallbladder and appendix out. He knows one of them are abnormal. I explained to him that once we go there, we c an address 2 issues at different time of the OR and we are going to proceed accordingly. If we remov ed the gallbladder, the benefits, alternatives, and risks fully explained, which include, but not durán ited to infection, bleeding, damage to adjacent structures, anesthesia complication, bile leak, pancr eatitis, [place], and even . He also understands this may not relieve any symptoms. He might need m ore than one surgical intervention. For the appendix, the same way we explained to him risks and cate efits, which are including infection, bleeding, damage to adjacent structures, negative appendix, neg ative exploration, [place] and even . He also understands this may not relieve any symptoms. He shereen ht need more than one surgical intervention. He understand also. As part of this, we also suggested him diagnostic laparoscopy and may not relieve any symptoms. He understood. He wants to be done as soon as possible. The patient was kept in OR. Procedure In Detail: The patient was brought to the operating room, placed in supine position. Anes thesia was done without complication. Abdominal area was prepped and draped in the usual sterile fas hion. Marcaine 0.5% was injected for local anesthetic followed by sharp incision of the skin in the infraumbilical region. The incision was carried down to fascia, which was opened under direct vision . Peritoneum was encountered, opened under direct vision. Vicryl #1 placed inside the fascia. Graham on trocar was carefully introduced. Pneumoperitoneum was obtained. At that moment, I took a look at the area of the gallbladder. My surprise it looks inflamed with adhesions to it and the appendix lo oks also asymmetrical in shape and color. In that case, we might have to do 2 of them, so I did firs t the 3 trocars in the right upper quadrant, 5 mm each one of them under direct visualization. This allowed me to do a formal diagnostic laparoscopy to visualize the small bowel and we have no extralum inal tumors. The large bowel, ascending, transverse and descending colon compressible with no tumor seen. The appendix looks abnormal with asymmetrical in shape and color, mainly in the midline, canno t rule out intraluminal tumor. The gallbladder looks inflamed with gallbladder edema and also many a dhesions coming through it consistent with cholecystitis. I did not see any hernias in the inguinal region and no obvious mesenteric lymphadenopathy. The stomach is soft and compressible and the liver with no extraluminal masses. At that moment, I proceeded then to put a grasper in the fundus of the gallbladder, another grasper in the infundibulum, retracted the gallbladder in the inferolateral fas hion exposing the triangle of Calot and obtaining critical view and gallbladder position. We identif ied the cystic duct and cystic artery. They were isolated, freed circumferentially and a connection between those and the gallbladder were clearly identified. I proceeded to ligate those by using at l east 3 clips proximal, 1 clip distal, ligation in middle. Same was done with the cystic artery. The gallbladder was removed from liver using Bovie cauterizer and removed from abdominal cavity using En doCatch through the umbilical incision. After that, we directed our attention to the right lower chi drant. We put an extra trocar 5 mm in the suprapubic area. This allowed me to identify the appendix . The base of the appendix seems to be spared, so we created a window in the base of the appendix, t ransected that with an Endo JASMYN 45 mm nonvascular clipping device. The mesoappendix that we were rodríguez ing care of with the help of hemoclips and also a LigaSure. The appendix removed from abdominal cavi ty using EndoCatch through umbilical incision. We checked the area once again and no bleeding in any other places. No gallbladder bleeding. No appendiceal area bleeding after profuse irrigation and s uction. After that, we proceeded to remove the trocars under direct vision. Deflated pneumoperitone um. Closed the fascia with #1 Vicryl. Irrigated subcutaneous tissue, closed that with 3-0 chromic a nd the skin with subcuticular closure with 3-0 chromic. Sponge count and instrument counts correct. The patient was sent to recovery in stable condition. This patient has previous abdominal surgery, multiple frequent visits to the doctors in the ER and faculty research assistant. Now, we have inflammation of the appendix, inflammation of the gallbladder with some postoperative pain that will require him to be at least 23 hours in observation for pain co ntrol. He agreed. HM/MODL Voice ID: [id number] Report ID: [id number]
[2022-02-17] MEDS: CEFOXITIN 1 GM in NA CHLORIDE 0.9% 50 ML IVPB SCH (17:16)
[2022-02-17] MEDS: HYDROMORPHONE HCL 1 MG/ML INJ IV PRN ×2 (17:27→21:05)
[2022-02-18] MEDS: CEFOXITIN 1 GM in NA CHLORIDE 0.9% 50 ML IVPB SCH ×2 (00:01→05:10)
[2022-02-18] MEDS: NA CHLORIDE 0.9% 1,000 ML IV SCH ×2 (00:37→09:00)
[2022-02-18] MEDS: HYDROMORPHONE HCL 1 MG/ML INJ IV PRN ×3 (00:37→08:12)
[2022-02-18 06:09] LABS: Absolute Lymphocytes (CBC) 1.6 K/uL (0.7-4.9); Hematocrit 41.8 % (39.6-49.0); Lymphocytes % 21.3 % (15.3-44.8); RBC Red Blood Cell Count 4.42 M/uL (4.33-5.43)
[2022-02-18 06:22] LABS: Potassium 3.4 mmol/L (3.5-5.1)
[2022-02-18] MEDS ORDERED: PANTOPRAZOLE 40 MG INJ IVP SCH (09:00)
[2022-02-18 09:22] VITALS: TEMP 98.2
--- NOTE | 2022-02-18 12:34 | P.DS ---
Admission Date: 02/17/22 Discharge Date: 02/18/22 Disposition: ROUTINE DISCHARGE Discharge Condition: GOOD - Problems (1) Appendicitis Current Visit: No Status: Acute (2) Cholecystitis without calculus Current Visit: Yes Status: Acute Vital Signs/Physical Exam: Temp Pulse Resp BP Pulse Ox 98.2 F 74 16 118/74 98 02/18/22 08:00 02/18/22 08:00 02/18/22 08:42 02/18/22 08:00 02/18/22 08:42 General: Alert, In no apparent distress, Oriented x3, Cooperative HEENT: PERRLA, EOMI Neck: Supple Respiratory: Normal air movement Cardiovascular: No edema, Normal pulses Gastrointestinal: Soft and benign Musculoskeletal: No erythema, No tenderness, No warmth Integumentary: No rashes, No breakdown, No cyanosis Neurological: Normal speech Laboratory Data at Discharge: WBC 7.6 K/uL (4.3-10.9) D 02/18/22 05:58 Hgb 14.5 g/dL (13.6-17.9) 02/18/22 05:58 Hct 41.8 % (39.6-49.0) 02/18/22 05:58 Plt Count 126 K/uL (152-406) L 02/18/22 05:58 Sodium 141 mmol/L (136-145) 02/18/22 05:58 Potassium 3.4 mmol/L (3.5-5.1) L 02/18/22 05:58 BUN 7 mg/dL (7-18) 02/18/22 05:58 Creatinine 1.16 mg/dL (0.55-1.3) 02/18/22 05:58 Glucose 102 mg/dL (74-106) 02/18/22 05:58 Home Medications: Adalimumab [Humira] 40 mg SQ SEECOM 01/11/22 Pantoprazole [Protonix Tab*] 40 mg PO DAILY 01/11/22 Tizanidine HCl 4 mg PO BEDTIME PRN PRN 01/11/22 Tramadol HCl [Ultram] 50 mg PO BIDP PRN 01/11/22 Multivit-Min/Folic/Vit K/Lycop [Men's Multivitamin Tablet] 1 each PO DAILY 02/16/22 ondansetron HCL [Ondansetron HCl] 4 mg PO PRN PRN 02/16/22 Melatonin 1 tab PO BEDTIME 02/17/22 Physician Discharge Instructions: Keep surgical area dry for 24h then may remove outer dressing and shower. Keep sterlle strips intact. Diet: Regular Activity: No lifting more than 10 lbs Followup: Marco Arevalo MD [Primary Care Provider] - If your Condition Changes Sebastien Lynn MD [ACTIVE - CAN ADMIT] - 1 Week
[2022-02-18 13:07] VITALS: BP 123/74
== END 2022-02-18 14:25 | disposition home or self-care (01) ==
LOC: OR 09:16 → 2ND 13:41
PROVIDERS: ADMIT Surgery; ATTEND Surgery
PROC: 0FT44ZZ Resection of Gallbladder, Percutaneous Endoscopic Approach (ICD-10-PCS; 2022-02-17)
PROC: 0DTJ4ZZ Resection of Appendix, Percutaneous Endoscopic Approach (ICD-10-PCS; principal; 2022-02-17 11:45)
DX: K35.80 Unspecified acute appendicitis (principal); K81.0 Acute cholecystitis; K82.8 Other specified diseases of gallbladder; K21.9 Gastro-esophageal reflux disease without esophagitis; M45.9 Ankylosing spondylitis of unspecified sites in spine; Z20.822 Contact with and (suspected) exposure to COVID-19
CPT/HCPCS: 85025 ×2; 80048 ×2; 36415 ×2; 88304 ×2; 94010; 44970; 47562; U0003; J2704; J0330; C9113; J2250; J3010; J2175; J1170 ×8; J2710; J7120; J7030 ×2; J0694 ×4; J2405 ×3; G0379; G0378 ×2

== ENCOUNTER 2022-07-12 13:15 | Emergency (ER) | payer OTHER ==
--- OUTSIDE RECORDS SUMMARY | 2022-07-12 13:19 | XMS REPORT | Continuity of Care Document ---
:1990 Author Organization [facility] t Address [address] [place] [address] Care Team Providers Name Role Phone Pcp, Patient Does Not Have A Primary Care Physician +[phone] KIEL PRASAD Attending Clinician Unavailable ELVIS RENE Attending Clinician Unavailable Nurse, [facility] Attending Clinician Unavailable Elvis Rene MD Attending Clinician Provider, [facility] Attending Clinician Unavailable Alcides Hunter PA-C Attending Clinician ALCIDES HUNTER Attending Clinician Unavailable Payers Payer Name Policy Type Policy Number Effective Date Expiration Date [id number] 2021 CHOICE EXCHANGE 00:00:00 [facility] [id number] 2019 CHOICE 00:00:00 Problems Condition Condition Condition Status Onset Resolution Last Treating Co mments Source Name Details Category Date Date Treatment Clinician Date No known No known Disease Unive rs active active ity of problems problems [facility] Allergies, Adverse Reactions, Alerts Allergy Allergy Status Severity Reaction(s) Onset Inactive Treating Comm ents Source Name Type Date Date Clinician NO KNOWN Drug Active Univers ALLERGIE Class ity of S [facility] NO KNOWN Allergy Active [facility] Social History Social Habit Start Date Stop Date Quantity Comments Source Exposure to Not sure University of SARS-CoV-2 [facility] (event) Branch Alcohol intake 2021-03-14 2021-03-14 Current drinker Unive rsity of 00:00:00 00:00:00 of alcohol [facility] (finding) Branch Tobacco use and 2021-03-14 2021-03-14 Never used Universit y of exposure 00:00:00 00:00:00 [facility] Sex Ass[birth year] At [birth year] Universit y of 00:00:00 00:00:00 [facility] Smoking Status Start Date Stop Date Source Former smoker 2021-03-14 00:00:00 2021-03-14 00:00:00 [facility] Medications Ordered Filled Start Stop Current Ordering Indication Dosage Frequency Signature Comments Components Source Medication Medication Date Date Medication? Clinician (SIG) Name Name No known No Univers medications 03-14 ity of 10:56: [place] [facility] cephALEXin 2020- No [id number] 500mg Take 1 Univers 500 mg 03-14 tablet by ity of tablet 00:00: 04:59 mouth 2 [place] 00 :00 (two) Medical times [place] daily for 5 days. May use capsules Vital Signs Vital Name Observation Time Observation Value Comments Source Systolic blood 2021-03-14 15:36:00 123 [facility]Hg[facility] Diastolic blood 2021-03-14 15:36:00 72 [facility]Hg[facility] 2021-03-14 15:36:00 67 /min [facility] Body temperature 2021-03-14 15:36:00 36.89 Shayy [facility] Respiratory rate 2021-03-14 15:36:00 13 /min [facility] Body height 2021-03-14 15:36:00 177.8 cm [facility] Body weight 2021-03-14 15:36:00 74.844 kg [facility] BMI 2021-03-14 15:36:00 23.68 kg/m2 [facility] Oxygen saturation in 2021-03-14 15:36:00 98 /min [facility] Arterial blood by [facility] Pulse oximetry Branch Procedures This patient has no known procedures. Encounters Start End Encounter Admission Attending Care Care Encounter Source Date/Time Date/Time Type Type Clinicians Facility Department ID 2022-04-30 2022-04-30 Outpatient KIEL GAMBOA [facility] [id number] [facility] 00:00:00 00:00:00 2022-01-09 2022-01-09 [facility] [id number] Univers 13:20:00 13:35:25 [facility] 2022-01-09 2022-01-09 Nurse Nurse, [facility] [id number] Univers 13:20:00 13:35:25 Visit Satish Elvis [place] [id number] [facility] [id number] Holger as LIZANDRO?BLEA [phone] Ma dicmaria a EY [address] [facility] OFFICE BUILDING 2022-01-09 2022-01-09 Outpatient R [facility] [id number] Univers 13:20:00 13:20:00 [id number] [facility] 2021-03-14 2021-03-14 Urgent Provider, [facility] [id number] [facility] 10:21:38 10:41:38 [facility] [id number] [facility] [id number] Holger as Professio [phone] Ma farhad [facility] [address] 2021-03-14 2021-03-14 Outpatient [facility] [id number] [facility] 10:20:00 10:20:00 [facility] Results Test Description Test Time Test Comments Results Result Comments Source HEPATIC FUNCTION PANEL 2022-06-01 17:03:09 Test Item Value Reference Range Interpretation Comme nts TOTAL PROTEIN (BEAKER) (test code = 7.9 gm/dL 6.0-8.3 Specimen slightly hemolyzed 770) ALBUMIN (BEAKER) (test code = 1145) 4.7 g/dL 3.5-5.0 Specimen slightly hemolyzed BILIRUBIN TOTAL (BEAKER) (test code = 1.0 mg/dL 0.2-1.2 Specimen slightly hemolyzed 377) BILIRUBIN DIRECT (BEAKER) (test code 0.4 mg/dL 0.1-0.5 Specimen slightly hemolyzed = 706) ALKALINE PHOSPHATASE (BEAKER) (test 67 U/L 40-150 code = 346) AST (SGOT) (BEAKER) (test code = 353) 37 U/L 5-34 H Specimen slightly hemolyzed ALT (SGPT) (BEAKER) (test code = 347) 96 U/L 6-55 H Specimen slightly hemolyzed Conduit Bender ID - BSCBC W/PLT COUNT & AUTO [id number] 16:48:26 Test Item Value Reference Range Interpretation Comments WHITE BLOOD CELL COUNT (BEAKER) 8.1 K/ L 3.5-10.5 (test code = 775) RED BLOOD CELL COUNT (BEAKER) 5.00 M/ L 4.63-6.08 (test code = 761) HEMOGLOBIN (BEAKER) (test code = 16.2 GM/DL 13.7-17.5 410) HEMATOCRIT (BEAKER) (test code = 47.0 % 40.1-51.0 411) MEAN CORPUSCULAR VOLUME (BEAKER) 94.0 fL 79.0-92.2 H (test code = 753) MEAN CORPUSCULAR HEMOGLOBIN 32.4 pg 25.7-32.2 H (BEAKER) (test code = 751) MEAN CORPUSCULAR HEMOGLOBIN CONC 34.5 GM/DL 32.3-36.5 (BEAKER) (test code = 752) RED CELL DISTRIBUTION WIDTH 11.6 % 11.6-14.4 (BEAKER) (test code = 412) PLATELET COUNT (BEAKER) (test 145 K/CU MM 150-450 L code = 756) MEAN PLATELET VOLUME (BEAKER) 9.6 fL 9.4-12.4 (test code = 754) NUCLEATED RED BLOOD CELLS 0 /100 WBC 0-0 (BEAKER) (test code = 413) NEUTROPHILS RELATIVE PERCENT 69 % (BEAKER) (test code = 429) LYMPHOCYTES RELATIVE PERCENT 24 % (BEAKER) (test code = 430) MONOCYTES RELATIVE PERCENT 6 % (BEAKER) (test code = 431) EOSINOPHILS RELATIVE PERCENT 0 % (BEAKER) (test code = 432) BASOPHILS RELATIVE PERCENT 0 % (BEAKER) (test code = 437) NEUTROPHILS ABSOLUTE COUNT 5.59 K/ L 1.78-5.38 H (BEAKER) (test code = 670) LYMPHOCYTES ABSOLUTE COUNT 1.93 K/ L 1.32-3.57 (BEAKER) (test code = 414) MONOCYTES ABSOLUTE COUNT (BEAKER) 0.46 K/ L 0.30-0.82 (test code = 415) EOSINOPHILS ABSOLUTE COUNT 0.03 K/ L 0.04-0.54 L (BEAKER) (test code = 416) BASOPHILS ABSOLUTE COUNT (BEAKER) 0.03 K/ L 0.01-0.08 (test code = 417) IMMATURE GRANULOCYTES-RELATIVE 0 % 0-1 PERCENT (BEAKER) (test code = 2801) ANTI-NUCLEAR ANTIBODY (GLYNN)2022-05-03 11:24:47 Test Item Value Reference Range Interpretation Comments ANTI-NUCLEAR ANTIBODY (GLYNN) (BEAKER) Negative Negative (test code = 418) Test performed by IFA method.Test performed by IFA method.HEPATITIS A ANTIBODY, [id number] 15:39:02 Test Item Value Reference Range Interpretation Comments HEPATITIS A IGG ANTIBODY (BEAKER) Nonreactive Nonreactive (test code = 2797) Conduit Bender ID - BSHEPATITIS B SURFACE [id number] 15:38:57 Test Item Value Reference Range Interpretation Comments HEPATITIS B SURFACE ANTIBODY 694.4 mIU/mL <8.0 H (BEAKER) (test code = 647) Conduit Bender ID - [id number] 15:18:35 Test Item Value Reference Range Interpretation Comments ALPHA-1 ANTITRYPSIN (BEAKER) 133.20 mg/dL 90.00-200.00 (test code = 502) Conduit Bender ID - LEOBARDO MOperator ID - BSIMMUNOGLOBULIN G (IGG)2022-04-30 15:18:20 Test Item Value Reference Range Interpretation Comments IMMUNOGLOBULIN G (IGG) 1176 mg/dL See_Comment [Aut omated message] (BEAKER) (test code = The sy stem which 427) generated this result transmit ricarda reference range : 540-1,822. The reference range was not used to interpret this result as normal/abnormal . Conduit Bender ID - [id number] 15:03:13 Test Item Value Reference Range Interpretation Comments FERRITIN (BEAKER) (test code = 151.93 ng/mL 5.00-275.00 361) Conduit Bender ID - BSCOMPREHENSIVE METABOLIC [id number] 14:45:00 Test Item Value Reference Range Interpretation Comments TOTAL PROTEIN 8.0 gm/dL 6.0-8.3 (BEAKER) (test code = 770) ALBUMIN (BEAKER) 4.8 g/dL 3.5-5.0 (test code = 1145) ALKALINE PHOSPHATASE 91 U/L 40-150 (BEAKER) (test code = 346) BILIRUBIN TOTAL 0.7 mg/dL 0.2-1.2 (BEAKER) (test code = 377) SODIUM (BEAKER) (test 139 meq/L 136-145 code = 381) POTASSIUM (BEAKER) 3.8 meq/L 3.5-5.1 (test code = 379) CHLORIDE (BEAKER) 101 meq/L 98-107 (test code = 382) CO2 (BEAKER) (test 27 meq/L 22-29 code = 355) BLOOD UREA NITROGEN 10 mg/dL 7-21 (BEAKER) (test code = 354) CREATININE (BEAKER) 0.80 mg/dL 0.57-1.25 (test code = 358) GLUCOSE RANDOM 74 mg/dL 70-105 (BEAKER) (test code = 652) CALCIUM (BEAKER) 9.9 mg/dL 8.4-10.2 (test code = 697) AST (SGOT) (BEAKER) 37 U/L 5-34 H (test code = 353) ALT (SGPT) (BEAKER) 108 U/L 6-55 H (test code = 347) EGFR (BEAKER) (test INSUFFIC IENT CLINICAL code = 1092) DATA TO CALCULA TE ESTIMATED GFR. Conduit Bender ID - LEOBARDO MBILIRUBIN, [id number] 14:42:46 Test Item Value Reference Range Interpretation Comments BILIRUBIN DIRECT (BEAKER) (test 0.3 mg/dL 0.1-0.5 code = 706) Conduit Bender ID - LEOBARDO ALFREDO, TIBC, % SAT. (WITHOUT FERRITIN)2022-04-30 14:42:46 Test Item Value Reference Range Interpretation Comments IRON (BEAKER) (test code = 547) 95.0 ug/dL 40.0-160.0 TOTAL IRON BINDING CAPACITY 315 ug/dL 250-450 (BEAKER) (test code = 769) IRON % SATURATION (2) (BEAKER) 30 % 20-55 (test code = 9465) Conduit Bender ID - LEOBARDO MCBC W/PLT COUNT & AUTO [id number] 14:28:04 Test Item Value Reference Range Interpretation Comments WHITE BLOOD CELL COUNT (BEAKER) 6.0 K/ L 3.5-10.5 (test code = 775) RED BLOOD CELL COUNT (BEAKER) 5.13 M/ L 4.63-6.08 (test code = 761) HEMOGLOBIN (BEAKER) (test code = 16.3 GM/DL 13.7-17.5 410) HEMATOCRIT (BEAKER) (test code = 49.6 % 40.1-51.0 411) MEAN CORPUSCULAR VOLUME (BEAKER) 96.7 fL 79.0-92.2 H (test code = 753) MEAN CORPUSCULAR HEMOGLOBIN 31.8 pg 25.7-32.2 (BEAKER) (test code = 751) MEAN CORPUSCULAR HEMOGLOBIN CONC 32.9 GM/DL 32.3-36.5 (BEAKER) (test code = 752) RED CELL DISTRIBUTION WIDTH 11.7 % 11.6-14.4 (BEAKER) (test code = 412) PLATELET COUNT (BEAKER) (test 148 K/CU MM 150-450 L code = 756) MEAN PLATELET VOLUME (BEAKER) 9.9 fL 9.4-12.4 (test code = 754) NUCLEATED RED BLOOD CELLS 0 /100 WBC 0-0 (BEAKER) (test code = 413) NEUTROPHILS RELATIVE PERCENT 62 % (BEAKER) (test code = 429) LYMPHOCYTES RELATIVE PERCENT 29 % (BEAKER) (test code = 430) MONOCYTES RELATIVE PERCENT 8 % (BEAKER) (test code = 431) EOSINOPHILS RELATIVE PERCENT 1 % (BEAKER) (test code = 432) BASOPHILS RELATIVE PERCENT 0 % (BEAKER) (test code = 437) NEUTROPHILS ABSOLUTE COUNT 3.68 K/ L 1.78-5.38 (BEAKER) (test code = 670) LYMPHOCYTES ABSOLUTE COUNT 1.71 K/ L 1.32-3.57 (BEAKER) (test code = 414) MONOCYTES ABSOLUTE COUNT (BEAKER) 0.48 K/ L 0.30-0.82 (test code = 415) EOSINOPHILS ABSOLUTE COUNT 0.07 K/ L 0.04-0.54 (BEAKER) (test code = 416) BASOPHILS ABSOLUTE COUNT (BEAKER) 0.02 K/ L 0.01-0.08 (test code = 417) IMMATURE GRANULOCYTES-RELATIVE 1 % 0-1 PERCENT (JOSE RAUL) (test code = 2801)
[2022-07-12 13:57] LABS: Absolute Lymphocytes (CBC) 2.5 K/uL (0.7-4.9); Lymphocytes % 36.1 % (15.3-44.8); MCV 93.1 fL (80-100); MPV 7.2 fL (7.6-11.3); RBC Red Blood Cell Count 5.16 M/uL (4.33-5.43)
[2022-07-12 14:19] LABS: BUN Blood Urea Nitrogen 23 mg/dL (7-18); Bicarbonate 33 mmol/L (21-32); Glomerular Filtration Rate 104 ml/min (=/>90); Glucose Level 95 mg/dL (74-106); NT PRO-BNP 22 pg/mL (<125); Potassium 3.7 mmol/L (3.5-5.1); Sodium Level 136 mmol/L (136-145)
[2022-07-12 14:24] LABS: Troponin High Sensitivity < 3.0 pg/mL (<58.9)
--- NOTE | 2022-07-12 17:07 | RAD REPORT ---
EXAM DESCRIPTION: Mona Single View07/12/2022 5:01 pm CLINICAL HISTORY: Chest pain COMPARISON: February 2022 FINDINGS: The lungs appear clear of acute infiltrate. The heart is normal size IMPRESSION: No acute abnormalities displayed
--- NOTE | 2022-07-12 17:09 | ER ---
Nurse's Notes [facility] Name: John Hoffmann Age: 32 yrs Sex: Male : 1990 Arrival Date: 07/12/2022 Time: 13:18 Bed 30 Private MD: Marco Arevalo Diagnosis: Chest pain, unspecified Presentation: 07/12 13:23 Chief complaint: Patient states: Pt reports pain underneath bilateral shoulder blades kb3 and chest tightness 1 week ago and was evaluated at Urgent Care with no findings. Pt reports today while at work he began feeling like his ankles and lower legs swelled up and felt "strange." Pt also felt light-headed. Coronavirus screen: Vaccine status: Patient reports receiving the 2nd dose of the covid vaccine. Client denies travel out of the [place] in the last 14 days. At this time, the client does not indicate any symptoms associated with coronavirus-19. Ebola Screen: Patient negative for fever greater than or equal to 101.5 degrees Fahrenheit, and additional compatible Ebola Virus Disease symptoms Patient denies exposure to infectious person. Patient denies travel to an Ebola-affected area in the 21 days before illness onset. No symptoms or risks identified at this time. No acute neurological deficit is noted. Initial Sepsis Screen: Does the patient meet any 2 criteria? No. Patient's initial sepsis screen is negative. Does the patient have a suspected source of infection? No. Patient's initial sepsis screen is negative. Risk Assessment: Do you want to hurt yourself or someone else? Patient reports no desire to harm self or others. 13:23 Method Of Arrival: Ambulatory kb3 13:23 Acuity: FRENCH 3 kb3 17:42 Onset of symptoms is unknown. 3 Triage Assessment: 13:28 General: Appears in no apparent distress. comfortable, Behavior is calm, cooperative. kb3 Pain: Denies pain. Neuro: No deficits noted. Reports "feeling strange". 17:40 The onset of the patients symptoms was July 12, 2022 at 17:41. 3 Historical: - Home Meds: 13:28 pantoprazole 40 mg Oral TbEC Every other day [Active]; tramadol 50 mg Oral tab 1 tab kb3 BID for Pain [Active]; tizanidine 4 mg Oral tab 1 tab nightly [Active]; - PMHx: 13:28 chronic back pain; kb3 - PSHx: 13:28 Appendectomy; Cholecystectomy; kb3 - Immunization history:: Adult Immunizations up to date, Client reports having NOT received the Covid vaccine. Last tetanus immunization: unknown. - Social history:: Smoking status: Patient reports the use of cigarette tobacco products, denies chronic smoking, but will smoke occasionally, Patient/guardian denies using alcohol, street drugs. Screenin:35 Abuse screen: Denies threats or abuse. Denies injuries from another. Nutritional eh3 screening: No deficits noted. Tuberculosis screening: No symptoms or risk factors identified. Fall Risk None identified. Assessment: 14:35 VAN Scoring: Arm Drift: Patients demonstrates NO arm weakness. Patient is VAN Negative. eh3 The patient has not been NPO before screening. The patient is alert, and able to follow commands. The patient does not exhibit slurred or garbled speech. The patient is not exhibiting difficulty speaking. The patient does not exhibit difficulty understanding words. The patient is able to swallow own secretions with no drooling or need for suction. Patient tolerated one teaspoon of water. No drooling, immediate coughing, gurgling, or clearing of the throat was noted. The patient tolerated 90mL of water. No drooling, immediate coughing, gurgling, or clearing of the throat was noted. The patient passed the bedside swallow screening. Oral medications may be given as ordered. Contact Physician for further diet orders. Provider notified of bedside swallow screening results: Luis Enrique Stacy. TNKase (Tenecteplase) Screening: Contraindications:. Vital Signs: 13:23 BP 129 / 93; Pulse 62; Resp 18; Temp 98.4; Pulse Ox 100% ; Weight 72.57 kg; Height 5 kb3 ft. 10 in. (177.80 cm); Pain 0/10; 15:27 BP 127 / 85; Pulse 65; Resp 18; Pulse Ox 100% on R/A; eh3 16:29 BP 120 / 84; Pulse 62; Resp 19; Pulse Ox 100% on R/A; eh3 17:30 BP 128 / 79; Pulse 65; Resp 18; Pulse Ox 100% on R/A; eh3 13:23 Body Mass Index 22.96 (72.57 kg, 177.80 cm) kb3 NIH Stroke Scale Scores: 14:35 NIHSS Score: 0 eh3 ED Course: 13:18 Patient arrived in ED. rg4 13:18 Marco Arevalo MD is Private Physician. rg4 13:28 Triage completed. kb3 13:28 Arm band placed on left wrist. kb3 13:35 Patient has correct armband on for positive identification. Bed in low position. Call eh3 light in reach. Side rails up X2. 13:35 No provider procedures requiring assistance completed. eh3 13:36 Luis Enrique Stacy is PHCP. jl9 13:36 Elie Pittman MD is Attending Physician. jl9 13:52 Inserted saline lock: 20 gauge in right antecubital area, using aseptic technique. kc6 Blood collected. 13:52 Basic Metabolic Panel Sent. kc6 13:52 CBC with Diff Sent. kc6 13:52 NT PRO-BNP Sent. kc6 13:52 Troponin HS Sent. kc6 14:34 Nela Carlton, RN is Primary Nurse. ld1 14:35 Client placed on continuous cardiac and pulse oximetry monitoring. NIBP monitoring eh3 applied. 14:56 XRAY Chest (1 view) In Process Unspecified. EDMS 16:59 Primary Nurse role handed off by Nela Carlton, RN eh3 16:59 Betty Sterling, RN is Primary Nurse. eh3 17:42 IV discontinued, intact, bleeding controlled, No redness/swelling at site. Pressure eh3 dressing applied. Administered Medications: No medications were administered Medication: 13:35 VIS not applicable for this client. eh3 Outcome: 17:09 Discharge ordered by . jl9 17:40 Condition: stable eh3 17:40 Discharge instructions given to patient, family, Instructed on discharge instructions, follow up and referral plans. Demonstrated understanding of instructions, follow-up care. 17:42 Discharged to home ambulatory. eh3 17:42 Patient left the ED. eh3 NIH Stroke Scale - NIH Stroke Score Date: 07/12/2022 Time: 14:35 Total Score = 0 1a. Level of Consciousness (LOC) - 0(Alert) 1b. Level of Consciousness (LOC) (Month \\T\\ Age) - 0(Both) 1c. LOC Commands (Open \\T\\ Closes Eyes/[employer] Principal) - 0(Both) 2. Best Gaze (Lateral Gaze Paresis) - 0(Normal) 3. Visual Field Loss - 0(No visual loss) 4. Facial Palsy - 0(Normal) 5a. Left Arm: Motor (10-second hold) - 0(No drift) 5b. Right Arm: Motor (10-second hold) - 0(No drift) 6a. Left Leg: Motor (5-second hold - always test supine) - 0(No drift) 6b. Right Leg: Motor (5-second hold - always test supine) - 0(No drift) 7. Limb Ataxia (finger/nose \\T\\ heel/[place] - test with eyes open) - 0(Absent) 8. Sensory Loss (pinprick arms/legs/face) - 0(Normal) 9. Best Language: Aphasia (description/naming/reading) - 0(No aphasia) 10. Dysarthria (speech clarity - read or repeat words) - 0(Normal) 11. Extinction and Inattention (visual/tactile/auditory/spatial/personal) - 0(No abnormality) Initials: [facility] Signatures: Dispatcher [employer] EDMS Monica Small rg4 Nela Carlton RN RN ld1 Betty Sterling RN RN eh3 Luis Enrique Stacy jl9 Grace Curry kc6 Mmee Abrams, RN RN kb3 Corrections: (The following items were deleted from the chart) 13:30 13:28 Home Meds: alfuzosin 10 mg Oral Tb24 1 tab nightly; kb3 kb3 13:30 13:28 Home Meds: Humira subcutaneous; kb3 kb3 13:30 13:28 PMHx: Ankylosing Spondylitis; kb3 kb3 17:21 13:35 NIHSS Score: 0 3 3 17:21 13:35 VAN Scoring: Arm Drift: Patients demonstrates NO arm weakness. Patient is 3 VAN Negative. 3 17:21 13:35 The patient has not been NPO before screening. The patient is alert, and 3 able to follow commands. The patient does not exhibit slurred or garbled speech. The patient is not exhibiting difficulty speaking. The patient does not exhibit difficulty understanding words. The patient is able to swallow own secretions with no drooling or need for suction. Patient tolerated one teaspoon of water. No drooling, immediate coughing, gurgling, or clearing of the throat was noted. The patient tolerated 90mL of water. No drooling, immediate coughing, gurgling, or clearing of the throat was noted. The patient passed the bedside swallow screening. Oral medications may be given as ordered. Contact Physician for further diet orders. Provider notified of bedside swallow screening results: Luis Enrique Stacy [facility] 17: 13:35 TNKase (Tenecteplase) Screening: Contraindications: [place] [id number] 17: 13:35 Abuse screen: Denies threats or abuse. Denies injuries from another. [place] [id number] : 13:35 Nutritional screening: No deficits noted. [place] [id number] : 13:35 Tuberculosis screening: No symptoms or risk factors identified. [place] [id number] 17: 13:35 Fall Risk None identified. [place] [id number] 17:42 13:23 Onset of symptoms was July 12, 2022 at 11:30 [place] [id number]
--- NOTE | 2022-07-12 17:09 | EDPHYS ---
Physician Documentation [facility] Name: John Hoffmann Age: 32 yrs Sex: Male : 1990 Arrival Date: 07/12/2022 Time: 13:18 Bed 30 Private MD: Marco Arevalo ED Physician Elie Pittman HPI: 07/12 17:14 This 32 yrs old Male presents to ER via Ambulatory with complaints of chest jl9 wall pain, seen recently for similar issue at urgent care. . 17:14 Onset: The symptoms/episode began/occurred 1 week(s) ago. Context: occurred at home. jl9 Associated signs and symptoms: Pertinent negatives: altered mental status, dizziness, nausea, syncope, double vision. Severity of symptoms: Pain is currently a 2 / 10. Historical: - Home Meds: 13:28 pantoprazole 40 mg Oral TbEC Every other day [Active]; tramadol 50 mg Oral tab 1 tab kb3 BID for Pain [Active]; tizanidine 4 mg Oral tab 1 tab nightly [Active]; - PMHx: 13:28 chronic back pain; kb3 - PSHx: 13:28 Appendectomy; Cholecystectomy; kb3 - Immunization history:: Adult Immunizations up to date, Client reports having NOT received the Covid vaccine. Last tetanus immunization: unknown. - Social history:: Smoking status: Patient reports the use of cigarette tobacco products, denies chronic smoking, but will smoke occasionally, Patient/guardian denies using alcohol, street drugs. ROS: 14:33 Constitutional: Negative for fever, chills, and weight loss, Eyes: Negative for injury, jl9 pain, redness, and discharge, ENT: Negative for injury, pain, and discharge, Neck: Negative for injury, pain, and swelling, Cardiovascular: Negative for chest pain, palpitations, and edema, Respiratory: Negative for shortness of breath, cough, wheezing, and pleuritic chest pain, Abdomen/GI: Negative for abdominal pain, nausea, vomiting, diarrhea, and constipation, Back: Negative for injury and pain, : Negative for injury, bleeding, discharge, and swelling, MS/Extremity: Negative for injury and deformity, Skin: Negative for injury, rash, and discoloration. 14:33 Psych: Negative for depression, anxiety, suicide ideation, homicidal ideation, and hallucinations, Allergy/Immunology: Negative for hives, rash, and allergies, Endocrine: Negative for neck swelling, polydipsia, polyuria, polyphagia, and marked weight changes, Hematologic/Lymphatic: Negative for swollen nodes, abnormal bleeding, and unusual bruising. 14:33 Neuro: Positive for weakness. Exam: 14:33 Constitutional: This is a well developed, well nourished patient who is awake, alert, jl9 and in no acute distress. Head/Face: Normocephalic, atraumatic. Eyes: Pupils equal round and reactive to light, extra-ocular motions intact. Lids and lashes normal. Conjunctiva and sclera are non-icteric and not injected. Cornea within normal limits. Periorbital areas with no swelling, redness, or edema. ENT: Mucous membranes moist. Neck: Trachea midline, no thyromegaly or masses palpated, and no cervical lymphadenopathy. Supple, full range of motion without nuchal rigidity, or vertebral point tenderness. No Meningismus. Chest/axilla: Normal chest wall appearance and motion. Nontender with no deformity. No lesions are appreciated. Cardiovascular: Regular rate and rhythm with a normal S1 and S2. No gallops, murmurs, or rubs. Normal PMI, no JVD. No pulse deficits. Respiratory: Lungs have equal breath sounds bilaterally, clear to auscultation and percussion. No rales, rhonchi or wheezes noted. No increased work of breathing, no retractions or nasal flaring. Abdomen/GI: Soft, non-tender, with normal bowel sounds. No distension or tympany. No guarding or rebound. No evidence of tenderness throughout. Back: No spinal tenderness. No costovertebral tenderness. Full range of motion. Skin: Warm, dry with normal turgor. Normal color with no rashes, no lesions, and no evidence of cellulitis. MS/ Extremity: Pulses equal, no cyanosis. Neurovascular intact. Full, normal range of motion. Neuro: Awake and alert, GCS 15, oriented to person, place, time, and situation. Cranial nerves II-XII grossly intact. Motor strength 5/5 in all extremities. Sensory grossly intact. Cerebellar exam normal. Normal gait. Psych: Awake, alert, with orientation to person, place and time. Behavior, mood, and affect are within normal limits. Vital Signs: 13:23 BP 129 / 93; Pulse 62; Resp 18; Temp 98.4; Pulse Ox 100% ; Weight 72.57 kg; Height 5 kb3 ft. 10 in. (177.80 cm); Pain 0/10; 15:27 BP 127 / 85; Pulse 65; Resp 18; Pulse Ox 100% on R/A; eh3 16:29 BP 120 / 84; Pulse 62; Resp 19; Pulse Ox 100% on R/A; eh3 17:30 BP 128 / 79; Pulse 65; Resp 18; Pulse Ox 100% on R/A; eh3 13:23 Body Mass Index 22.96 (72.57 kg, 177.80 cm) kb3 NIH Stroke Scale Scores: 14:35 NIHSS Score: 0 eh3 MDM: 13:36 Patient medically screened. jl9 14:33 Data reviewed: vital signs, nurses notes. 9 14:48 Test interpretation: by ED physician or midlevel provider: ECG, NSR. 9 16:28 Counseling: I had a detailed discussion with the patient and/or guardian regarding: the [facility] historical points, exam findings, and any diagnostic results supporting the discharge/admit diagnosis, lab results, radiology results. 07/12 13:37 Order name: Basic Metabolic Panel; Complete Time: 14:26 07/12 13:37 Order name: CBC with Diff; Complete Time: 14:26 07/12 13:37 Order name: NT PRO-BNP; Complete Time: 14:26 07/12 13:37 Order name: Troponin HS; Complete Time: 14:26 07/12 13:37 Order name: XRAY Chest (1 view); Complete Time: 17:08 07/12 13:37 Order name: EKG; Complete Time: 13:37 07/12 13:37 Order name: Cardiac monitoring; Complete Time: 14:49 07/12 13:37 Order name: EKG - Nurse/Tech; Complete Time: 14:49 07/12 13:37 Order name: IV Saline Lock; Complete Time: 13:52 07/12 13:37 Order name: Labs collected and sent; Complete Time: 13:52 07/12 13:37 Order name: O2 Per Protocol; Complete Time: 14:49 07/12 13:37 Order name: O2 Sat Monitoring; Complete Time: 14:49 jl9 Administered Medications: No medications were administered Disposition: 17:43 Co-signature as Attending Physician, Elie Pittman MD. rn Disposition Summary: 07/12/22 17:09 Discharge Ordered Location: Home jl9 Condition: Stable jl9 Diagnosis - Chest pain, unspecified jl9 Followup: jl9 - With: Private Physician - When: 1 - 2 days - Reason: Recheck today's complaints, Continuance of care, Re-evaluation by your physician Discharge Instructions: - Discharge Summary Sheet jl9 - Nonspecific Chest Pain, Adult, [id number] jl9 Forms: - Medication Reconciliation Form jl9 - Thank You Letter jl9 - Antibiotic Education jl9 - Prescription Opioid Use jl9 NIH Stroke Scale - NIH Stroke Score Date: 07/12/2022 Time: 14:35 Total Score = 0 1a. Level of Consciousness (LOC) - 0(Alert) 1b. Level of Consciousness (LOC) (Month \T\ Age) - 0(Both) 1c. LOC Commands (Open \T\ Closes Eyes/[employer] Repairer) - 0(Both) 2. Best Gaze (Lateral Gaze Paresis) - 0(Normal) 3. Visual Field Loss - 0(No visual loss) 4. Facial Palsy - 0(Normal) 5a. Left Arm: Motor (10-second hold) - 0(No drift) 5b. Right Arm: Motor (10-second hold) - 0(No drift) 6a. Left Leg: Motor (5-second hold - always test supine) - 0(No drift) 6b. Right Leg: Motor (5-second hold - always test supine) - 0(No drift) 7. Limb Ataxia (finger/nose \T\ heel/[place] - test with eyes open) - 0(Absent) 8. Sensory Loss (pinprick arms/legs/face) - 0(Normal) 9. Best Language: Aphasia (description/naming/reading) - 0(No aphasia) 10. Dysarthria (speech clarity - read or repeat words) - 0(Normal) 11. Extinction and Inattention (visual/tactile/auditory/spatial/personal) - 0(No abnormality) Initials: eh3 Signatures: Dispatcher [employer] EDMS Elie Pittman MD MD rn Lina[place], John jl9 Meme Abrams RN RN kb3 Corrections: (The following items were deleted from the chart) : Home Meds: alfuzosin 10 mg Oral Tb24 1 tab nightly; kb3 kb3 Home Meds: Humira subcutaneous; kb3 kb3 PMHx: Ankylosing Spondylitis; kb3 kb3
[2022-07-12 19:01] VITALS: TEMP 98.4; O2SAT 100
[2022-07-12 19:23] VITALS: BP 128/79
--- NOTE | 2022-07-13 13:51 | EKG ---
Test Date: 2022-07-12 Test Time: 14:47:39 [employer] Manager: ADIEL MEASUREMENT RESULTS: Intervals: Rate: 66 [place]: 154 QRSD: 84 QT: 388 QTc: 406 [place]: P: 73 [place]: 154 QRS: 77 T: 61 INTERPRETIVE STATEMENTS: Normal sinus rhythm with sinus arrhythmia Normal ECG Compared to ECG 03/03/2022 19:14:49 No significant changes Electronically Signed On 07-13-22 13:49:04 CDT by Lefty Pandya
== END 2022-07-12 17:42 | disposition home or self-care (01) ==
LOC: ER 13:15
DX: R07.89 Other chest pain (principal); R53.1 Weakness; F17.210 Nicotine dependence, cigarettes, uncomplicated
CPT/HCPCS: 36415; 71045; 80048; 83880; 84484; 85025; 93005; 99284

== ENCOUNTER 2022-07-18 10:58 | Emergency (ER) | payer OTHER ==
--- OUTSIDE RECORDS SUMMARY | 2022-07-18 11:02 | XMS REPORT | Continuity of Care Document ---
:1990 Author Organization [facility] t Address [address] [place] [address] Care Team Providers Name Role Phone PCP, PATIENT DOES NOT HAVE A Primary Care Physician UnavailDAVID Duran Attending Clinician Unavailable [facility] Attending Clinician Unavailable David Spence Attending Clinician [phone] Kenyatta Duncan RN Attending Clinician Unavailable Kiel Ayala MD Attending Clinician KIEL AYALA Attending Clinician Unavailable Reyna Winchester MA Attending Clinician Unavailable Katja Pate Attending Clinician Jolene Lynn RN Attending Clinician Unavailable Payers Payer Name Policy Type Policy Number Effective Date Expiration Date S ource Problems Condition Condition Condition Status Onset Resolution Last Treating Co mments Source Name Details Category Date Date Treatment Clinician Date Abnormal Abnormal Disease Active [facility] enzymes enzymes 00:00: t & Plan: Medic al 00 [facility] g of this note might be different from the original. Lab results revealed intermitt ent elevation of AST/ALT. Prior evaluatio n for chronic hepatitis /viral serologie s negative, no history of alcohol or risk factors for fatty liver disease. He has history of ankylosin g spondylit is, we will complete the autoimmun e workup, intermitt ent elevation may be because of the medicatio ns or supplemen ts use.Discu ssed to stop supplemen ts, complete the course of minocycli ne.We'll also do metabolic workup for abnormal liver enzyme. If comprehen sive workup is negative and intermitt ent elevation in liver enzymes and persisten t then we will consider liver biopsyIn view of the recent history of cholecyst ectomy we get ultrasoun d for further evaluatio n Ankylosing Ankylosing Disease Active Last [facility] spondyliti spondyliti - Assessmen Swati s of s of 00:00: t & Plan: Medical thoracolum thoracolum 00 [facility] bar region bar region g of this note might be different from the original. 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 This can be associate d with autoimmun e liver disease/a utoimmune hepatitis /PSC, but current biochemic al profile not suggestiv e. Complete . comprehsheila pederson autoimmun e workup and get to her ultrasoun d Screening Screening Disease Active Last [facility] for for 04-30 [facility] [place] endocrine, endocrine, 00:00: t & Plan: Medical metabolic metabolic 00 Form[facility] C enter and and g of this immunity immunity note disorder disorder might be different from the original. Serologic al tests will be completed to determine the presence of immunity to hepatitis A and B. If found susceptib le she will be referred to her primary care provider to consider the administr ation of the appropria te vaccines. Chronic Chronic Disease Active Last [facility] diarrhea diarrhea 04-30 [facility] es 00:00: t & Plan: Medical [address] [place] [address] Center g of this note might be different from the original. Patient has history of chronic diarrhea, associate d with weight loss, he recently underwent colonosco py with biopsy which was told to be unremarka ble. This checked a celiac panel and obtain the colonosco py and biopsy reports for review No known No known Disease Unive rs active active ity of problems problems [facility] Allergies, Adverse Reactions, Alerts Allergy Allergy Status Severity Reaction(s) Onset Inactive Treating Comm ents Source Name Type Date Date Clinician NO KNOWN Drug Active Univers ALLERGIE Class ity of S [facility] NO KNOWN Allergy Active [facility] Social History Social Habit Start Date Stop Date Quantity Comments Source History SDOH [facility] Alcohol Frequency [facility] History SDOH [facility] Alcohol Std Medical Cente r Drinks History SDOH [facility] Alcohol Binge Medical Richard ter History of Current smoker University of tobacco use [facility] Exposure to 2022-07-04 2022-07-14 Not sure University SARS-CoV-2 00:00:00 09:48:00 [facility] (event) Branch Alcohol intake 2022-06-01 2022-06-01 Ex-drinker [facility] 00:00:00 00:00:00 (finding) Medical Center Tobacco use and 2022-04-30 2022-04-[address] [facility] exposure 00:00:00 00:00:00 Medical Center History SDOH 2022-04-30 2022-04-[address] [facility] Alcohol Comment 00:00:00 00:00:00 [facility] C enter Sex Assigned At [address] [address] [facility] 00:00:00 00:00:00 Medical Center Smoking Status Start Date Stop Date Source Current every day 2022-04-30 00:00:[address] [facility] smoker Center Ex-smoker 2021-03-14 00:00:00 2021-03-14 00:00:00 [facility] Medications Ordered Filled Start Stop Current Ordering Indication Dosage Frequency Signature Comments Components Source Medication Medication Date Date Medication? Clinician (SIG) Name Name tiZANidine Yes Univers 4 mg tablet 8-22 ity of 00:00: [place] [facility] traMADoL 50 Yes Univer s mg tablet 8-22 ity of 00:00: [place] [facility] Branch tiZANidine Yes Univers 4 mg tablet 8-22 ity of 00:00: [place] [facility] traMADoL 50 Yes Univer s mg tablet 8-22 ity of 00:00: [place] [facility] Branch pantoprazol Yes TAKE 1 Univ ers e 40 mg EC 7-28 TABLET BY ity of tablet 00:00: MOUTH DAILY 30 Medical MINUTES Branch BEFORE BREAKFAST OR FIRST MEAL pantoprazol Yes TAKE 1 Univ ers e 40 mg EC 7-28 TABLET BY ity of tablet 00:00: MOUTH DAILY 30 Medical MINUTES Branch BEFORE BREAKFAST OR FIRST MEAL TiZANidine Yes 4mg [id number] Take [address] (ZANAFLEX) 6-10 [id number] by mouth 3 [facility]ukes 4 MG 12:13: 3D (three) Medical capsule 34 times Center daily. mINOCYCLine Yes 135mg QD Take [address] (DYNACIN) 6-10 mg by [facility]ukes 100 MG 12:13: mouth Medical tablet 34 daily. [place] emollient Yes Apply [facility] combination 6-10 topically. Betsy kes no.32 12:13: Medical (EpiCeram) 34 Center Radha pantoprazol Yes 40mg Take [address] e 6-10 by mouth. [facility]ukes (Protonix) 12:10: Medical 20 MG 13 [place] tablet traMADoL Yes 50mg Take [address] (ULTRAM) 50 6-10 by mouth. Lissy es mg tablet 12:10: Medical 13 Center adalimumab Yes 40mg Inject [address] (HUMIRA) 40 6-10 mg Lukes mg/0.8 mL 12:10: subcutaneo Me dical injection 13 usly. [place] Vital Signs Vital Name Observation Time Observation Value Comments Source Systolic blood 2022-07-14 15:00:00 127 mm[facility]Hg[facility] Diastolic blood 2022-07-14 15:00:00 81 mm[Hg] [facility] Heart rate 2022-07-14 15:00:00 84 /min [facility] Body temperature 2022-07-14 15:00:00 36.78 Shayy [facility] Respiratory rate 2022-07-14 15:00:00 18 /min [facility] Body height 2022-07-14 15:00:00 177.8 cm [facility] Body weight 2022-07-14 15:00:00 72.439 kg [facility] BMI 2022-07-14 15:00:00 22.91 kg/m2 [facility] Oxygen saturation in 2022-07-14 15:00:00 99 /min [facility] Arterial blood by [facility] Pulse oximetry [place] Body temperature 2022-06-01 13:52:[address] [facility] [address] [facility] Body height 2022-06-01 13:52:00 177.8 cm [facility] Body weight 2022-06-01 13:52:00 72.258 kg [facility] BMI 2022-06-01 13:52:00 22.86 kg/m2 [facility] Systolic blood 2022-04-30 11:58:00 129 mm[Hg] [facility] Diastolic blood 2022-04-30 11:58:00 79 mm[Hg] [facility] Heart rate 2022-04-30 11:58:00 76 /min [facility] Oxygen saturation in 2022-04-30 11:58:00 98 /min [facility] Arterial blood by Medical Ce nter Pulse oximetry Procedures Procedure Date / Time Performing Clinician Source Performed HEPATIC FUNCTION PANEL 2022-06-01 14:28:00 Kiel Ayala [facility] CBC W/PLT COUNT & AUTO 2022-06-01 14:28:00 Kiel Ayala [facility] CBC W/PLT COUNT & AUTO 2022-06-01 14:28:00 Kiel Ayala [facility] CELIAC DISEASE PANEL 2022-04-30 13:14:00 Kiel Ayala [facility] INTERPRETATION 2022-04-30 13:14:00 Kiel Ayala [facility] TISSUE TRANSGLUTAMINASE 2022-04-30 13:14:00 Kiel Ayala [facility] ENDOMYSIAL AB SCR 2022-04-30 13:14:00 Kiel Ayala [facility] ENDOMYSIAL AB TITER 2022-04-30 13:14:00 Kiel Ayala [facility] IGA 2022-04-30 13:14:00 Kiel Ayala [facility] TISSUE TRANSGLUTAMINASE 2022-04-30 13:14:00 Kiel Ayala [facility] COMPREHENSIVE METABOLIC 2022-04-30 12:59:00 Kiel Ayala [facility] BILIRUBIN, DIRECT 2022-04-30 12:59:00 ShaniceKiel leahy [facility] CBC W/PLT COUNT & AUTO 2022-04-30 12:59:00 ShaniceKiel leahy [facility] HEPATITIS A ANTIBODY, IGG 2022-04-30 12:59:00 Kiel Ayala [facility] HEPATITIS B SURFACE 2022-04-30 12:59:00 Kiel Ayala [facility] ukes ANTIBODY [facility] IRON, TIBC, % SAT. (WITHOUT 2022-04-30 12:59:00 Kiel Ayala [facility] FERRITIN) Medical [place] FERRITIN 2022-04-30 12:59:00 Kiel Ayala [facility] HZOBN-1-IGZCYLRBSOA\, SERUM 2022-04-30 12:59:00 Kiel Ayala [facility] CERULOPLASMIN 2022-04-30 12:59:00 Kiel Ayala [facility] ANTI-NUCLEAR ANTIBODY (GLYNN) 2022-04-30 12:59:00 ShaniceKiel leahy [facility] ACTIN (SMOOTH MUSCLE) 2022-04-30 12:59:00 Kiel Ayala [facility] ANTIBODY, IGG [facility] MITOCHONDRIA M2 ANTIBODY 2022-04-30 12:59:00 ShaniceiKel leahy [facility] (IGG) [facility] IMMUNOGLOBULIN G (IGG) 2022-04-30 12:59:00 Kiel Ayala [facility] CBC W/PLT COUNT & AUTO 2022-04-30 12:59:00 Kiel Ayala [facility] Plan of Care Planned Activity Planned Date Details Comments Source Future Scheduled 2022-07-22 INFLUENZA VACCINE (#1) [facility] Test 00:00:00 [code = INFLUENZA Medical Ce nter VACCINE (#1)] Future Scheduled 2021-11-[address] [facility] Test 00:00:00 (12+) [code = Medical Center DEPRESSION SCREENING (12+)] Future Scheduled [address] [facility] Test 00:00:00 (procedure) [code = Medical Center [id number]] Future Scheduled 2009 DTAP/TDAP/TD VACCINES [facility] Test 00:00:00 (1 - Tdap) [code = Medical C enter DTAP/TDAP/TD VACCINES (1 - Tdap)] Future Scheduled 2008 HEPATITIS C SCREENING [facility] Test 00:00:00 [code = HEPATITIS C Medical Center SCREENING] Future Scheduled [address] [facility] Test 00:00:00 0-64 YRS (1 - PCV) Medical C enter [code = PNEUMOCOCCAL VACCINE 0-64 YRS (1 - PCV)] Future Scheduled 1991-01-12 COVID-19 VACCINE (#1) [facility] Test 00:00:00 [code = COVID-[address] VACCINE (#1)] Encounters Start End Encounter Admission Attending Care Care Encounter Source Date/Time Date/Time Type Type Clinicians Facility Department ID 2022-08-26 2022-08-26 [id number] Univers 11:00:00 11:00:00 [facility] [id number]22-08-23 2022-08-23 Out[facility] [id number] Univers 13:15:00 13:15:00 [id number] [facility] 2022-07-14 2022-07-14 Assembly Department Supervisor [facility] UNIVERSIT [id number] Univers 10:45:00 11:00:00 Visit David Montemayor [facility] [id number] ity of [facility] [id number] [id number] [facility] [address] Branch 2022-07-14 2022-07-14 Office Jovanny, UNIVERSIT [id number] Univers 10:00:00 10:30:00 Visit [facility] [id number] i ty of [facility] [id number] [id number] [facility] 0[address] Branch 2022-07-14 2022-07-14 [facility] [id number] Univers 10:00:00 10:00:00 DAVID johnson [facility] 2022-06-02 2022-06-02 Telephone Dakota [facility] [id number] 00:[facility]00 00[facility]00[facility]00 [facility] 2022-06-01 2022-06-01 Office Kiel Ayala [facility] [id number] 13:30:00 14:00:00 Visit [facility] 2022-05-31 2022-05-31 Telephone Ranulfo [facility] [id number] 00:00:00 00:00:00 [facility] 2022-05-13 2022-05-13 Telephone Pradip [facility] [id number] 00:00:00 00:00:00 [facility] 2022-05-05 2022-05-05 Documentat Shane [facility] [id number] 00:00:00 00:00:00 ion [facility] 2022-04-30 2022-04-30 Office Kiel Ayala [facility] [id number] [facility] [address] 12:00:00 13:00:00 Visit [facility] 2022-04-30 2022-04-30 Outpatient BRITTANIE SHANICE KIEL [facility] [id number] [facility] 00:00:00 00:00:00 2022-04-30 2022-04-30 Documentat Dakota [facility] [id number] 00:00[facility]00 00:00:[address] [facility] Results Test Description Test Time Test Comments [...] 96 U/L 6-55 H Specimen slightly hemolyzed Certified Mortician ID - BSCBC W/PLT COUNT & AUTO [id number] 16:48:26 Test Item Value Reference Range Interpretation [...] method.Test performed by IFA method.HEPATITIS A ANTIBODY, [id number] 15:39:02 Test Item Value Reference Range Interpretation Comments HEPATITIS A IGG ANTIBODY (BEAKER) Nonreactive Nonreactive (test code = 2797) Certified Mortician ID - BSHEPATITIS B SURFACE [id number] 15:38:57 Test Item Value Reference Range Interpretation Comments HEPATITIS B SURFACE ANTIBODY 694.4 mIU/mL <8.0 H (BEAKER) (test code = 647) Certified Mortician ID - [id number] 15:18:35 Test Item Value Reference Range Interpretation Comments ALPHA-1 ANTITRYPSIN (BEAKER) 133.20 mg/dL 90.00-200.00 (test code = 502) Certified Mortician ID - LEOBARDO MOperator ID - BSIMMUNOGLOBULIN G (IGG)2022-04-30 15:18:20 Test Item Value Reference Range Interpretation Comments IMMUNOGLOBULIN G (IGG) 1176 mg/dL See_Comment [Aut omated message] (BEAKER) (test code = The sy stem which 427) generated this result transmit ricarda reference range : 540-1,822. The reference range was not used to interpret this result as normal/abnormal . Certified Mortician ID - [id number] 15:03:13 Test Item Value Reference Range Interpretation Comments FERRITIN (BEAKER) (test code = 151.93 ng/mL 5.00-275.00 361) Certified Mortician ID - BSCOMPREHENSIVE METABOLIC [id number] 14:45:00 Test Item Value Reference Range Interpretation [...] 1092) DATA TO CALCULA TE ESTIMATED GFR. Certified Mortician ID - LEOBARDO OLINDAILIRUBIN, [id number] 14:42:46 Test Item Value Reference Range Interpretation Comments BILIRUBIN DIRECT (BEAKER) (test 0.3 mg/dL 0.1-0.5 code = 706) Certified Mortician ID - LEOBARDO ALFREDO, TIBC, % SAT. (WITHOUT FERRITIN)2022-04-30 14:42:46 Test Item Value Reference Range Interpretation Comments IRON (BEAKER) (test code = 547) 95.0 ug/dL 40.0-160.0 TOTAL IRON BINDING CAPACITY 315 ug/dL 250-450 (BEAKER) (test code = 769) IRON % SATURATION (2) (BEAKER) 30 % 20-55 (test code = 2590) Certified Mortician KATHI BOOTH MCBC W/PLT COUNT & AUTO [id number] 14:28:04 Test Item Value Reference Range Interpretation [...] 417) IMMATURE GRANULOCYTES-RELATIVE 1 % 0-1 PERCENT (BEAKER) (test code = 2809)
[2022-07-18] MEDS ORDERED: MAGNES/ALUMIN/SIMET 30ML UCUP ONE (11:41)
[2022-07-18] MEDS ORDERED: LIDOCAINE VISCOUS 2% SOLN 15 ML UDC ONE (11:42)
[2022-07-18 11:47] LABS: Absolute Lymphocytes (CBC) 1.6 K/uL (0.7-4.9); Hematocrit 49.1 % (39.6-49.0); Lymphocytes % 31.4 % (15.3-44.8); MCV 91.2 fL (80-100); MPV 7.4 fL (7.6-11.3); RBC Red Blood Cell Count 5.38 M/uL (4.33-5.43)
[2022-07-18 12:06] LABS: ALT/SGPT 54 U/L (12-78); AST/SGOT 26 U/L (15-37); Albumin 4.1 g/dL (3.4-5.0); Alkaline Phosphatase 67 U/L (45-117); BUN Blood Urea Nitrogen 19 mg/dL (7-18); Bicarbonate 30 mmol/L (21-32); Bilirubin Direct 0.2 mg/dL (0-0.2); Glomerular Filtration Rate 109 ml/min (=/>90); Glucose Level 73 mg/dL (74-106); Lipase 72 U/L (73-393); NT PRO-BNP 15 pg/mL (<125); Potassium 3.5 mmol/L (3.5-5.1); Protein, Total 8.2 g/dL (6.4-8.2); Sodium Level 138 mmol/L (136-145)
[2022-07-18 12:13] LABS: Troponin High Sensitivity < 3.0 pg/mL (<58.9)
[2022-07-18 13:00] LABS: SARS-CoV-2 Antigen Rapid Res Negative (Negative)
--- NOTE | 2022-07-18 13:19 | RAD REPORT ---
EXAM DESCRIPTION: RAD - Chest Single View - 07/18/2022 1:05 pm CLINICAL HISTORY: CHEST PAIN COMPARISON: Chest Single View dated 07/12/2022; Chest Pa And Lat (2 Views) dated 03/03/2022; Chest Pa And Lat (2 Views) dated 01/20/2022 FINDINGS: Lines: None. Lungs: No evidence of edema or pneumonia. Pleural: No significant pleural effusions or pneumothorax. Cardiac: The heart size is within normal limits. Bones: No acute fractures. Other: IMPRESSION: No acute cardiopulmonary disease.
--- NOTE | 2022-07-18 13:25 | ER ---
Nurse's Notes [facility] Name: John Hoffmann Age: 32 yrs Sex: Male : 1990 Arrival Date: 07/18/2022 Time: 10:59 Bed 15 Private MD: Diagnosis: Chest pain, unspecified Presentation: 07/18 11:05 Chief complaint: Patient states: "I feel like my heart has been beating harder than ss usual the past two days and I get this pain that radiates down my L arm at times.". Coronavirus screen: Client denies travel out of the [place] in the last 14 days. Ebola Screen: Patient denies exposure to infectious person. Patient denies travel to an Ebola-affected area in the 21 days before illness onset. Initial Sepsis Screen: Does the patient meet any 2 criteria? No. Patient's initial sepsis screen is negative. Does the patient have a suspected source of infection? No. Patient's initial sepsis screen is negative. Risk Assessment: Do you want to hurt yourself or someone else? Patient reports no desire to harm self or others. Onset of symptoms was July 16, 2022. 11:05 Method Of Arrival: Ambulatory ss 11:05 Acuity: FRENCH 3 ss Historical: - Allergies: 11:04 No Known Allergies; ss - Home Meds: 11:04 pantoprazole 40 mg Oral TbEC Every other day [Active]; tramadol 50 mg Oral tab 1 tab ss BID for Pain [Active]; tizanidine 4 mg Oral tab 1 tab nightly [Active]; - PMHx: 11:04 chronic back pain; ss - PSHx: 11:04 Appendectomy; Cholecystectomy; ss - Immunization history:: Client reports having NOT received the Covid vaccine. - Social history:: Smoking status: Patient reports the use of cigarette tobacco products, denies chronic smoking, but will smoke occasionally. - Family history:: not pertinent. - Hospitalizations: : No recent hospitalization is reported. Screenin:07 Abuse screen: Denies threats or abuse. Nutritional screening: No deficits noted. ss Tuberculosis screening: No symptoms or risk factors identified. Fall Risk None identified. Assessment: 11:16 Reassessment: ERP at bedside to assess. ss 12:07 Reassessment: Patient and/or family updated on plan of care and expected duration. Pain ss level reassessed. Patient is alert, oriented x 3, equal unlabored respirations, skin warm/dry/pink. 12:23 General: Appears in no apparent distress. comfortable, Behavior is calm, cooperative, ss appropriate for age. Pain: Complains of pain in chest Pain does not radiate. Neuro: No deficits noted. Cardiovascular: Denies shortness of breath, Rhythm is regular Chest pain is described as vague. Respiratory: No deficits noted. Denies shortness of breath. GI: No deficits noted. No signs and/or symptoms were reported involving the gastrointestinal system. : No deficits noted. No signs and/or symptoms were reported regarding the genitourinary system. EENT: No deficits noted. No signs and/or symptoms were reported regarding the EENT system. Derm: No deficits noted. No signs and/or symptoms reported regarding the dermatologic system. Musculoskeletal: No deficits noted. No signs and/or symptoms reported regarding the musculoskeletal system. 13:29 Reassessment: ERP at bedside to reassess. Vital Signs: 11:05 BP 141 / 95; Pulse 79; Resp 15; Pulse Ox 100% on R/A; Weight 72.57 kg; Height 5 ft. 10 ss in. (177.80 cm); Pain 5/10; 11:10 Temp 98.0(TE); ss 12:06 BP 126 / 84; Pulse 60; Resp 16; Pulse Ox 100% on R/A; ss 12:32 BP 123 / 71; Pulse 62; Resp 16; Pulse Ox 100% on R/A; Pain 2/10; ss 12:55 BP 119 / 87; Pulse 66; Resp 16; Pulse Ox 100% on R/A; Pain 2/10; ss 13:55 BP 122 / 80; Pulse 70; Resp 18; Pulse Ox 99% on R/A; Pain 0/10; ss 11:05 Body Mass Index 22.96 (72.57 kg, 177.80 cm) ED Course: 10:59 Patient arrived in ED. rg4 11:05 Arm band placed on right wrist. ss 11:06 Triage completed. ss 11:09 Elie Pittman MD is Attending Physician. rn 11:11 Fauzia Iqbal RN is Primary Nurse. ss 12:07 No apparent distress. Resting quietly. Awaiting lab results. ss 12:07 Patient has correct armband on for positive identification. Call light in reach. Client ss placed on continuous cardiac and pulse oximetry monitoring. NIBP monitoring applied. front desk monitor on. Warm blanket given. 12:07 Initial lab(s) drawn, by ED staff, sent to lab. EKG done, by ED staff, reviewed by ss Elie Pittman MD X-ray(s) taken. Inserted saline lock: 20 gauge in left antecubital area, using aseptic technique. Blood collected. Patient maintains SpO2 saturation greater than 95% on room air. 12:23 No provider procedures requiring assistance completed. ss 13:07 XRAY Chest (1 view) In Process Unspecified. EDMS 13:55 IV discontinued, intact, bleeding controlled, No redness/swelling at site. Pressure ss dressing applied. Administered Medications: 11:35 Drug: GI Cocktail without - (Maalox Suspension 30 ml, Lidocaine Liquid 2 % 15 ss ml) Route: PO; 12:22 Follow up: Response: No adverse reaction ss 13:56 Follow up: Response: No adverse reaction ss Medication: 12:07 VIS not applicable for this client. ss Outcome: 13:25 Discharge ordered by . rn 13:55 Discharged to home ambulatory. ss 13:55 Condition: good 13:55 Discharge instructions given to patient, Instructed on discharge instructions, follow up and referral plans. Demonstrated understanding of instructions, follow-up care. 13:56 Patient left the ED. ss Signatures: Dispatcher [employer] EDMS Elie Pittman MD MD rn Smirch, Shelby, RN RN ss Garcia, Rubi rg4
--- NOTE | 2022-07-18 13:25 | EDPHYS ---
Physician Documentation [facility] Name: John Hoffmann Age: 32 yrs Sex: Male : 1990 Arrival Date: 07/18/2022 Time: 10:59 Bed 15 Private MD: ED Physician Elie Pittman HPI: 07/18 12:05 This 32 yrs old Male presents to ER via Ambulatory with complaints of chest pain. rn 12:06 The patient or guardian reports chest pain that is located primarily in the anterior rn chest wall. The pain radiates to the left arm. Associated signs and symptoms: Pertinent negatives: abdominal pain, cough, diaphoresis, lower extremity pain, lower extremity swelling, palpitations, shortness of breath, syncope. The chest pain is described as burning. Duration: The patient or guardian reports multiple episodes, that are intermittent. Duration:. Modifying factors: The symptoms are alleviated by nothing. the symptoms are aggravated by nothing. Severity of pain: At its worst the pain was moderate in the emergency department the pain is unchanged. The patient has experienced similar episodes in the past. The patient has been recently seen at the [facility]. Pt reports chest pain, burning sensation, also having intermittent left arm aches. No fever/trauma/cough/sob/abd pain. Does have hx of gastritis. Also seen here for chest pain 3 weeks ago with neg workup, has appt with cardiology but left arm pain made him worry so came in again.. Historical: - Allergies: 11:04 No Known Allergies; ss - Home Meds: 11:04 pantoprazole 40 mg Oral TbEC Every other day [Active]; tramadol 50 mg Oral tab 1 tab ss BID for Pain [Active]; tizanidine 4 mg Oral tab 1 tab nightly [Active]; - PMHx: 11:04 chronic back pain; ss - PSHx: 11:04 Appendectomy; Cholecystectomy; ss - Immunization history:: Client reports having NOT received the Covid vaccine. - Social history:: Smoking status: Patient reports the use of cigarette tobacco products, denies chronic smoking, but will smoke occasionally. - Family history:: not pertinent. - Hospitalizations: : No recent hospitalization is reported. ROS: 12:06 Constitutional: Negative for fever, chills, and weight loss, Eyes: Negative for injury, rn pain, redness, and discharge, Neck: Negative for injury, pain, and swelling, Cardiovascular: Negative for palpitations, and edema, Respiratory: Negative for shortness of breath, cough, wheezing, and pleuritic chest pain, Abdomen/GI: Negative for abdominal pain, nausea, vomiting, diarrhea, and constipation, Back: Negative for injury and pain, MS/Extremity: Negative for injury and deformity, Skin: Negative for injury, rash, and discoloration, Neuro: Negative for headache, weakness, and seizure. Exam: 12:06 Constitutional: This is a well developed, well nourished patient who is awake, alert, rn and in no acute distress. Head/Face: Normocephalic, atraumatic. Cardiovascular: Regular rate and rhythm. No pulse deficits. Respiratory: No increased work of breathing, no retractions or nasal flaring. Abdomen/GI: Soft, non-tender Skin: Warm, dry MS/ Extremity: Pulses equal, no cyanosis. Neuro: Awake and alert, GCS 15 12:26 ECG was reviewed by the Attending Physician. rn Vital Signs: 11:05 BP 141 / 95; Pulse 79; Resp 15; Pulse Ox 100% on R/A; Weight 72.57 kg; Height 5 ft. 10 ss in. (177.80 cm); Pain 5/10; 11:10 Temp 98.0(TE); ss 12:06 BP 126 / 84; Pulse 60; Resp 16; Pulse Ox 100% on R/A; ss 12:32 BP 123 / 71; Pulse 62; Resp 16; Pulse Ox 100% on R/A; Pain 2/10; ss 12:55 BP 119 / 87; Pulse 66; Resp 16; Pulse Ox 100% on R/A; Pain 2/10; ss 13:55 BP 122 / 80; Pulse 70; Resp 18; Pulse Ox 99% on R/A; Pain 0/10; ss 11:05 Body Mass Index 22.96 (72.57 kg, 177.80 cm) MDM: 11:09 Patient medically screened. rn 13:23 Differential diagnosis: acute pericarditis, chest wall pain, costochondritis, rn esophagitis, gastritis, gastroesophageal reflux disease (GERD), pleurisy, pneumothorax, pulmonary embolus. Data reviewed: vital signs, nurses notes, lab test result(s), EKG, radiologic studies, plain films, and as a result, I will discharge patient. Counseling: I had a detailed discussion with the patient and/or guardian regarding: the historical points, exam findings, and any diagnostic results supporting the discharge/admit diagnosis, lab results, radiology results, the need for outpatient follow up, to return to the emergency department if symptoms worsen or persist or if there are any questions or concerns that arise at home. Response to treatment: the patient's symptoms have mildly improved after treatment, and as a result, I will discharge patient. Special discussion: I discussed with the patient/guardian in detail that at this point there is no indication for admission to the hospital. It is understood, however, that if the symptoms persist or worsen the patient needs to return immediately for re-evaluation. Based on the history and exam findings, there is no indication for further emergent testing or inpatient evaluation. I discussed with the patient/guardian the need to see the network consultant for further evaluation of the symptoms. I discussed with the patient/guardian the need to see the director of academic for further evaluation of the symptoms. I discussed with the patient/guardian the need to see the primary care provider for further evaluation of the symptoms. 07/18 11:25 Order name: Basic Metabolic Panel; Complete Time: 07/18 11:25 Order name: CBC with Diff; Complete Time: 07/18 11:25 Order name: D-Dimer; Complete Time: 07/18 11:25 Order name: NT PRO-BNP; Complete Time: :07/18 11:25 Order name: Troponin HS; Complete Time: :07/18 11:25 Order name: Lipase; Complete Time: :07/18 11:25 Order name: XRAY Chest (1 view); Complete Time: 13:23 07/18 11:25 Order name: EKG; Complete Time: 07/18 11:25 Order name: Cardiac monitoring; Complete Time: 07/18 11:25 Order name: EKG - Nurse/Tech; Complete Time: 07/18 11:25 Order name: IV Saline Lock; Complete Time: 07/18 11:25 Order name: LFT's; Complete Time: 1207/18 12:00 Order name: SARS RAPID; Complete Time: 13:01 eb 07/18 11:25 Order name: Labs collected and sent; Complete Time: rn 07/18 11:25 Order name: O2 Per Protocol; Complete Time: rn 07/18 11:25 Order name: O2 Sat Monitoring; Complete Time: rn EC:26 Rate is 66 beats/min. Rhythm is regular. Right axis deviation noted. QRS is positive in rn lead aVF and negative in lead I. PA interval is normal. QRS interval is normal. QT interval is normal. No Q waves. T waves are Normal. No ST changes noted. Clinical impression: NSR w/ Non-specific ST/T Changes. Interpreted by me. Reviewed by me. Administered Medications: 11:35 Drug: GI Cocktail without - (Maalox Suspension 30 ml, Lidocaine Liquid 2 % 15 ss ml) Route: PO; 12:22 Follow up: Response: No adverse reaction ss 13:56 Follow up: Response: No adverse reaction ss Disposition Summary: 07/18/22 13:25 Discharge Ordered Location: Home rn Problem: an ongoing problem rn Symptoms: have improved rn Condition: Stable rn Diagnosis - Chest pain, unspecified rn Followup: rn - With: Private Physician - When: As needed - Reason: Recheck today's complaints, Re-evaluation by your physician Discharge Instructions: - Discharge Summary Sheet rn - Nonspecific Chest Pain, Adult rn - Pain Without a Known Cause rn Forms: - Medication Reconciliation Form rn - Thank You Letter rn - 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
[2022-07-18 14:16] VITALS: TEMP 98
[2022-07-18 14:30] VITALS: BP 122/80; O2SAT 99
--- NOTE | 2022-07-19 10:22 | EKG ---
Test Date: 2022-07-18 Test Time: 11:18:03 Instrumental Teacher: JEROMY MEASUREMENT RESULTS: Intervals: Rate: 66 OR: 156 QRSD: 98 QT: 378 QTc: 396 Ogema: P: 79 OR: 156 QRS: 90 T: 63 INTERPRETIVE STATEMENTS: Normal sinus rhythm Rightward axis Borderline ECG Compared to ECG 07/12/2022 14:47:39 Right-axis deviation now present Sinus arrhythmia no longer present Electronically Signed On 07-19-22 10:20:07 CDT by Matteo Linares
== END 2022-07-18 13:56 | disposition home or self-care (01) ==
LOC: ER 10:58
DX: R07.89 Other chest pain (principal); Z20.822 Contact with and (suspected) exposure to COVID-19; F17.210 Nicotine dependence, cigarettes, uncomplicated
CPT/HCPCS: 36415; 71045; 80048; 80076; 83690; 83880; 84484; 85025; 85379; 87811; 93005; 99285

== ENCOUNTER 2022-09-10 15:02 | Observation (INO) | payer OTHER ==
--- OUTSIDE RECORDS SUMMARY | 2022-09-10 15:06 | XMS REPORT | Continuity of Care Document ---
:1990 Author Organization [facility] t Address [address] [place] [address] Care Team Providers Name Role Phone DEXTER GREWAL JR Primary Care Physician Unavailable DAVID PETTY Attending Clinician Unavailable David Spence Attending Clinician [phone] Pamela DEL VALLE MPH, Regulo Fernando Attending Clinician [phone] Renetta Chaney Attending Clinician [phone] REGULO SANTIAGO Attending Clinician Unavailable Only, Adc Test Attending Clinician Unavailable Moustapha Olivas MA Attending Clinician Unavailable [facility] Attending Clinician Unavailable Doctor Unassigned, [place] Attending Clinician Unavailable Kenyatta Duncan RN Attending Clinician Unavailable Kiel Prasad MD Attending Clinician Reyna Winchester MA Attending Clinician Unavailable Katja Pate Attending Clinician Jolene Lynn RN Attending Clinician Unavailable KIEL PRASAD Attending Clinician Unavailable ELVIS COVARRUBIAS Attending Clinician Unavailable Nurse, [facility] Attending Clinician Unavailable Elvis Covarrubias MD Attending Clinician Provider, [facility] Attending Clinician Unavailable Alcides Hunter PA-C Attending Clinician ALCIDES HUNTER Attending Clinician Unavailable Payers Payer Name Policy Type Policy Number Effective Date Expiration Date S ource Problems Condition Condition Condition Status Onset Resolution Last Treating Co mments Source Name Details Category Date Date Treatment Clinician Date Abnormal Abnormal Disease [facility] enzymes [facility] t & Plan[facility] of this note might be [...] metabolic workup for abnormal liver enzyme. If comprehsheila pederson workup is negative and intermitt ent elevation in liver enzymes and persisten t then we will consider liver biopsyIn view of the recent history of cholecyst ectomy we get ultrasoun d for further evaluatio n Ankylosing Ankylosing Disease Active Last [facility]ond[facility] 04[facility] s of 00:00: t & Plan: Medical thoracolum thoracolum 00 [facility] bar region bar region g of this note might be different from the original. 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 This can be associate d with autoimmun e liver disease/a utoimmune hepatitis /PSC, but current biochemic al profile not suggestiv e. Complete . darryl pederson autoimmun e workup and get to her ultrasoun d Screening Screening Disease Active Last [facility] endocrine, endocrine, 00:00: t & Plan: Medical [...] Active Last [facility] t & Plan: Medical 00 [facility] Center g of this note might be [...] rs active active ity of problems problems [facility] Allergies, Adverse Reactions, Alerts Allergy Allergy Status Severity Reaction(s) Onset Inactive Treating Comm ents Source Name Type Date Date Clinician NO KNOWN Allergy [facility] Drug Active Univers ALLERGIE Class ity of S [facility] Social History Social Habit Start Date Stop Date Quantity Comments Source History of Current smoker University of tobacco use [facility] History SDOH [facility] Alcohol Frequency [facility] Center History SDOH [facility] Alcohol Std [facility] Cente r Drinks History SDOH [facility] Alcohol Binge [facility] ter Alcohol intake 2022-08-20 2022-08-20 Ex-drinker [facility] 00:00:00 00:00:00 (finding) Medical Center Exposure to 2022-08-02 2022-08-12 Not sure [facility] SARS-CoV-2 00:00:00 09:58:00 [facility] (event) [place] Tobacco use and 2022-04-30 2022-04-[address] [facility] [address] [facility] exposure 00:00:00 00:00:00 [facility] Center History SDOH 2022-04-30 2022-04-[address] [facility] Alcohol Comment 00:00:00 00:00:00 2018 Medical C enter Sex Assigned At [address] [facility] 00:00:00 00:00:00 [facility] Center Smoking Status Start Date Stop Date Source Current every day 2022-04-30 00:00:[address] [facility] Medical smoker Center Ex-smoker 2021-03-14 00:00:00 2021-03-14 00:00:00 [facility] Medications Ordered Filled Start Stop Current Ordering Indication Dosage Frequency Signature Comments Components Source Medication Medication Date Date Medication? Clinician (SIG) Name Name traMADoL Yes 50mg Take [address] (ULTRAM) 50 9-30 by mouth. Lissy es mg tablet 11:57: [address] adalimumab Yes 40mg Inject [address] (HUMIRA) 40 9-30 mg [facility]ukes mg/0.8 mL 11:57: subcutaneo Me dical injection 54 usly. Center TiZANidine Yes 4mg [id number] Take [address] (ZANAFLEX) 9-30 [id number] by mouth 3 [facility] 4 MG 11:57: 3D (three) Medical capsule 54 times Center daily. mINOCYCLine Yes 135mg QD Take [address] (DYNACIN) 9-30 mg by [facility]ukes 100 MG 11:57: mouth Medical tablet 54 daily. Center emollient Yes Apply [facility] combination 9-30 topically. Betsy kes no.32 11:57: Medical (EpiCeram) 54 Center Radha pantoprazol 2021- No 40mg Take [address] e 9-30 09-30 by mouth. [facility]ukes (Protonix) 11:56: 00:00 Medica l 20 MG 06 :00 Center tablet metoprolol Yes 12.5mg Take 0.5 U nivers tartrate 25 9-30 tablets by it y of mg tablet 00:00: [place] the Medical morning Branch and 0.5 tablets in the evening. metoprolol Yes 12.5mg Take 0.5 U nivers tartrate 25 9-30 tablets by it y of mg tablet 00:00: [place] the Medical morning Branch and 0.5 tablets in the evening. NaCl 0.9% Yes [id number] 250mL at 50 Un cristina (NS) IV 9-22 mL/hr, IV ity of infusion 14:45: [place] 250 [place] 00 CONTINUOUS Medical , Starting Branch on [place] 08/12/22 at 0945, Until Discontinu ed, Routine&lt ;br>To keep vein open
perflutren 2021- No [id number] 2mL 2 mL, IV Univers lipid 08-12 Push, ity of microsphere 14:30: 14:11 [place] dose, On Medical (DEFINITY) [place] Branch injection 2 08/12/22 at mL 0930, Routine metoprolol 2021- No [id number] 5mg 5 mg, Slow Univers (LOPRESSOR) 08-12 IV Push, ity of injection 5 14:30: 14:43 [place] :[place] dose, On Medical [place] Branch 08/12/22 at 0930, Routine atropine 2021- No [id number] 1mg 1 mg, Slow Univers injection 1 08-12 IV Push, ity of mg 14:30: 14:29 ONCE, 1 [place] 00 :00 dose, On Medical [place] Branch 08/12/22 at 0930, Routine Saline Yes [id number] 6mL 6 mL, Univer s Bubble 08-12 Injection, ity of Study 14:03: SEE-INSTRU [place] 55 CTIONS, Medical Starting Branch on [place] 08/12/22 at 0903, Until Discontinu ed, Routine DOBUTamine 2021- No [id number] 5ug/kg/ 5 Univers (DOBUTREX) 08-12 min mcg/kg/min it y of 50 mg/50 mL 13:35: 02:39 , IV [place] IV infusion 36 :46 Infusion, Med ical TITRATE, Branch MAP Goal > or = 65 mmHg, Titrate per admin instructio ns, Starting on [place] 08/12/22 at 0835
No te and document the precise time that this is 3. ac complished . Begin the count with the EKG system's DSE applicatio n program. This is time zero.&nbsp ; At 2 minutes and 30 seconds after beginning the initial dosing, acquire parasterna l long axis and parasterna l short axis view at papillary level, apical 4 chamber, 2 chamber and apical long axis view, and BP At the 3 minute interval, simultaneo usly obtain a 12 lead EKG, heart rate and 02 saturation and increase the Dobutamine infusion to 10 mcg/kg/min . At the 5 minutes and 30 second interval, acquire parasterna l long axis and parasterna l short&nbsp ;axis view at papillary level, apical 4 chamber, 2 chamber and apical long axis view and measure BP. At the 6 minute interval, simultaneo usly obtain a 12 lead EKG, heart rate and 02saturati on an d increase the Dobutamine infusion to 20 mcg/kg/min . At the 8 minutes and 30 second interval, acquire parasterna l long axis and parasterna l short&nbsp ;axis view at papillary level, apical 4 chamber, 2 chamber and apical long axis view and measure BP. At the 9 minute interval, simultaneo usly obtain a 12 lead EKG, heart rate and 02 saturation and increase the Dobutamine infusion to 30 mcg/kg/min . (see Adjunctive Therapy)&n bsp; At the 11 minutes and 30 second interval, acquire parasterna l long axis and parasterna l short&nbsp ;axis view at papillary level, apical 4 chamber, 2 chamber and apical long axis view and m easure BP. At the 12 minute interval, simultaneo usly obtain a 12 lead EKG, heart rate and 02 saturation and increase the Dobutamine infusion to 40 mcg/kg/min . (see Adjunctive Therapy&nb sp; At the 14 minutes and 30 second interval, acquire parasterna l long axis and parasterna l short&nbsp ;axis view at papillary level, apical 4 chamber, 2 chamber and apical long axis view and m easure BP. At the 15 minute interval, simultaneo usly obtain a 12 lead EKG, heart rate and 02 saturation and terminate the Dobutamine infusion. (see Adjunctive Therapy)<b r> tiZANidine 2021-0 Yes Univers 4 mg tablet 8- ity of 00:00: [place] [facility] traMADoL 50 2021-0 Yes Univer s mg tablet 8- ity of 00:00: [place] [facility] tiZANidine 2-0 Yes Univers 4 mg tablet 8- ity of 00:: [place] [facility] traMADoL 50 2021-0 Yes Univer s mg tablet 8- ity of 00:00: [place] [facility] Branch tiZANidine 2-0 Yes Univers 4 mg tablet 8- ity of 00:00: [place] [facility] traMADoL 50 2021-0 Yes Univer s mg tablet 8- ity of 00:00: [place] 00 Medical Branch tiZANidine 2022-0 Yes Univers 4 mg tablet 07-12 ity of 00:00: [place] 00 Medical Branch traMADoL 50 2-0 Yes Univer s mg tablet 07-12 ity of 00:00: [place] Medical Branch tiZANidine 2-0 Yes Univers 4 mg tablet 07-12 ity of 00:00: [place] Medical Branch traMADoL 50 2-0 Yes Univer s mg tablet 07-12 ity of 00:00: [place] Medical Branch tiZANidine 2-0 Yes Univers 4 mg tablet 07-12 ity of 00:00: [place] Medical Branch traMADoL 50 2-0 Yes Univer s mg tablet 07-12 ity of 00:00: [place] Medical Branch tiZANidine 2-0 Yes Univers 4 mg tablet 07-12 ity of 00:00: [place] Medical Branch traMADoL 50 2-0 Yes Univer s mg tablet 07-12 ity of 00:00: [place] Medical Branch tiZANidine 2-0 Yes Univers 4 mg tablet 07-12 ity of 00:00: [place] Medical Branch traMADoL 50 2-0 Yes Univer s mg tablet 07-12 ity of 00:00: [place] Medical Branch tiZANidine 2-0 Yes Univers 4 mg tablet 07-12 ity of 00:00: [place] Medical Branch traMADoL 50 2-0 Yes Univer s mg tablet 07-12 ity of 00:00: [place] Medical Branch tiZANidine 2-0 Yes Univers 4 mg tablet 07-12 ity of 00:00: [place] Medical Branch traMADoL 50 2-0 Yes Univer s mg tablet 07-12 ity of 00:00: [place] Medical Branch pantoprazol 2-0 Yes TAKE 1 Univ ers e 40 mg EC 7-28 TABLET BY ity of tablet 00:00: MOUTH [place] DAILY 30 Medical MINUTES Branch BEFORE BREAKFAST OR FIRST MEAL pantoprazol 2-0 Yes TAKE 1 Univ ers e 40 mg EC 7-28 TABLET BY ity of tablet 00:00: MOUTH [place] DAILY 30 Medical MINUTES Branch BEFORE BREAKFAST OR FIRST MEAL pantoprazol 2-0 Yes TAKE 1 Univ ers e 40 mg EC 7-28 TABLET BY ity of tablet 00:00: MOUTH [place] 00 DAILY 30 Medical MINUTES Branch BEFORE BREAKFAST OR FIRST MEAL pantoprazol Yes TAKE 1 Univ ers e 40 mg EC 7-28 TABLET BY ity of tablet 00:00: MOUTH [place] 00 DAILY 30 Medical MINUTES Branch BEFORE BREAKFAST OR FIRST MEAL pantoprazol Yes TAKE 1 Univ ers e 40 mg EC 7-28 TABLET BY ity of tablet 00:00: MOUTH 00 DAILY 30 Medical MINUTES Branch BEFORE BREAKFAST OR FIRST MEAL pantoprazol Yes TAKE 1 Univ ers e 40 mg EC 7-28 TABLET BY ity of tablet 00:00: MOUTH [place] 00 DAILY 30 Medical MINUTES Branch BEFORE BREAKFAST [...] TABLET BY ity of tablet 00:00: MOUTH 00 DAILY 30 Medical MINUTES Branch BEFORE BREAKFAST OR FIRST MEAL pantoprazol Yes TAKE [address] [facility] e 7-28 TABLET BY [facility]ukes (PROTONIX) 00:00: MOUTH Medica l 40 MG 00 DAILY 30 Center tablet MINUTES BEFORE BREAKFAST OR FIRST MEAL TiZANidine Yes 4mg Q.[id number] Take [address] (ZANAFLEX) 6-10 [id number] by mouth 3 [facility] 4 MG 12:13: 3D (three) Medical capsule 34 times Center daily. mINOCYCLine Yes 135mg QD Take [address] (DYNACIN) 6-10 mg by [facility]ukes 100 MG 12:13: mouth Medical tablet 34 daily. Center emollient Yes Apply [facility] combination 6-10 topically. Betsy gibson no.32 12:13: Medical (EpiCeram) 34 Center Radha pantoprazol Yes 40mg Take [address] e 6-10 by mouth. Lukes (Protonix) 12:10: Medical 20 MG 13 [place] tablet traMADoL Yes 50mg Take [address] (ULTRAM) 50 6-10 by mouth. Lissy es mg tablet 12:10: Medical 13 [place] adalimumab 0 Yes 40mg Inject [address] (HUMIRA) 40 6-10 mg Lukes mg/0.8 mL 12:10: subcutaneo Me dical injection 13 [facility]. [place] Vital Signs Vital Name Observation Time Observation Value Comments Source Systolic blood 2022-08-12 14:52:00 140 mm[Hg] [facility] Diastolic blood 2022-08-12 14:52:00 80 mm[Hg[facility] Heart rate 2022-08-12 14:52:00 102 [facility] Respiratory rate 2022-08-12 14:30:00 20 /min [facility] Body height 2022-08-12 13:30:00 177.8 cm Universi [facility] Body weight 2022-08-12 13:30:[address] [facility] BMI 2022-08-12 13:30:00 22.67 kg/m2 Universi [facility] Systolic blood 2022-07-14 15:00:00 127 mm[Hg] [facility]iver [facility] Diastolic blood 2022-07-14 15:00:00 81 mm[Hg] [facility] Heart rate 2022-07-14 15:00:00 84 /min [facility] Body temperature 2022-07-14 15:00:00 36.78 Shayy [facility] Respiratory rate 2022-07-14 15:00:00 18 /min [facility] Body height 2022-07-14 15:00:00 177.8 cm Universi [facility] Body weight 2022-07-14 15:00:[address] [facility] BMI 2022-07-14 15:00:00 22.91 kg/m2 [facility] Oxygen saturation in 2022-07-14 15:00:00 99 /min University of Arterial blood by [facility] Pulse oximetry Branch Systolic blood 2022-08-20 11:40:00 131 mm[Hg] [facility] Diastolic blood 2022-08-20 11:40:00 81 mm[Hg] [facility] Heart rate 2022-08-20 11:40:00 71 /min [facility] Body temperature 2022-08-20 11:40:00 36.72 Shayy [facility] Body height 2022-08-20 11:40:00 177.8 cm [facility] Body weight 2022-08-20 11:40:00 72.122 kg [facility] BMI 2022-08-20 11:40:00 22.81 kg/m2 [facility] Oxygen saturation in 2022-08-20 11:40:00 99 /min [facility] Arterial blood by Medical Ce nter Pulse oximetry Body temperature 2022-06-01 13:52:00 36.28 Shayy [facility] Body height 2022-06-01 13:52:00 177.8 cm [facility] Body weight 2022-06-01 13:52:00 72.258 kg [facility] BMI 2022-06-01 13:52:00 22.86 kg/m2 [facility] Systolic blood 2022-04-30 11:58:00 129 mm[Hg] [facility] Diastolic blood 2022-04-30 11:58:00 79 mm[Hg] [facility] Heart rate 2022-04-30 11:58:00 76 /min [facility] Oxygen saturation in 2022-04-30 11:58:00 98 /min [facility] Arterial blood by Medical Ce nter Pulse oximetry Procedures Procedure Date / Time Performing Clinician Source Performed BASIC METABOLIC PANEL 2022-08-20 12:26:00 Renetta White [facility] HEPATIC FUNCTION PANEL 2022-08-20 12:26:00 Renetta White [facility] CBC W/PLT COUNT & AUTO 2022-08-20 12:26:00 Renetta White [facility] CBC W/PLT COUNT & AUTO 2022-08-20 12:26:00 Renetta White [facility] COMPLETE ECHOCARDIOGRAM 2022-08-12 15:08:00 David Petty [facility] DOBUTAMINE STRESS TEST W Medical Branch CONTRAST DOBUTAMINE STRESS ECHO 2022-08-12 05:01:00 [facility] [place] [facility] HEPATIC FUNCTION PANEL 2022-06-01 14:28:00 LucyKiel leahy [facility] CBC W/PLT COUNT & AUTO 2022-06-01 14:28:00 Kiel Prasad [facility] CBC W/PLT COUNT & AUTO 2022-06-01 14:28:00 Kiel Praasd [facility] CELIAC DISEASE PANEL 2022-04-30 13:14:00 Kiel Prasad [facility] INTERPRETATION 2022-04-30 13:14:00 Kiel Prasad [facility] TISSUE TRANSGLUTAMINASE 2022-04-30 13:14:00 Kiel Prasad [facility] ENDOMYSIAL AB SCR 2022-04-30 13:14:[address] [facility] ENDOMYSIAL AB TITER 2022-04-30 13:14:00 Kiel Prasad [facility] IGA 2022-04-30 13:14:00 Kiel Prasad [facility] TISSUE TRANSGLUTAMINASE 2022-04-30 13:14:00 Kiel Prasad [facility] COMPREHENSIVE METABOLIC 2022-04-30 12:59:00 Kiel Prasad [facility] BILIRUBIN, DIRECT 2022-04-30 12:59:[address] [facility] CBC W/PLT COUNT & AUTO 2022-04-30 12:59:00 LucyKiel leahy [facility] HEPATITIS A ANTIBODY, IGG 2022-04-30 12:59:00 Kiel Prasad [facility] HEPATITIS B SURFACE 2022-04-30 12:59:00 Kiel Prasad [facility] ANTIBODY Center IRON, TIBC, % SAT. 2022-04-30 12:59:00 LucyKiel leahy [facility] (WITHOUT FERRITIN) Center FERRITIN 2022-04-30 12:59:00 Kiel Prasad [facility] [id number]\, 2022-04-30 12:59:00 LucyKiel leahy [facility] SERUM [place] CERULOPLASMIN 2022-04-30 12:59:00 Kiel Prasad [facility] ANTI-NUCLEAR ANTIBODY 2022-04-30 12:59:00 LucyKiel leahy [facility] (GLYNN) Center ACTIN (SMOOTH MUSCLE) 2022-04-30 12:59:00 Kiel Prasad [facility] ANTIBODY, IGG Center MITOCHONDRIA M2 ANTIBODY 2022-04-30 12:59:00 LucyKiel leahy [facility] (IGG) Center IMMUNOGLOBULIN G (IGG) 2022-04-30 12:59:00 Kiel Prasad [facility] CBC W/PLT COUNT & AUTO 2022-04-30 12:59:00 Kiel Prasad [facility] DIFFERENTIAL Center Plan of Care Planned Activity Planned Date Details Comments Source Future Scheduled 2022-07-22 INFLUENZA VACCINE (#1) [facility] 00:00:00 [code = INFLUENZA Medical Ce nter VACCINE (#1)] Future Scheduled 2022-07-22 INFLUENZA VACCINE (#1) [facility] Test 00:00:00 [code = INFLUENZA Medical Ce nter VACCINE (#1)] Future Scheduled 2021-11-[address] [facility] Test 00:00:00 (12+) [code = Medical Center DEPRESSION SCREENING (12+)] Future Scheduled 2021-11-[address] [facility] Test 00:00:00 (12+) [code = Medical Center DEPRESSION SCREENING (12+)] Future Scheduled [address] [facility] Test 00:00:00 (procedure) [code = Medical Center [id number]] Future Scheduled [address] [facility] Test 00:00:00 (procedure) [code = Medical Center [id number]] Future Scheduled 2009 DTAP/TDAP/TD VACCINES [facility] Test 00:00:00 (1 - Tdap) [code = Medical C enter DTAP/TDAP/TD VACCINES (1 - Tdap)] Future Scheduled 2009 DTAP/TDAP/TD VACCINES [facility] Test 00:00:00 (1 - Tdap) [code = Medical C enter DTAP/TDAP/TD VACCINES (1 - Tdap)] Future Scheduled 2008 HEPATITIS C [facility]CRE[facility]ING [facility] 00:00:00 [code = HEPATITIS C Medical Center SCREENING] Future Scheduled 2008 HEPATITIS C [facility]CRE[facility]ING [facility] 00:00:00 [code = HEPATITIS C Medical Center SCREENING] Future Scheduled [address] [facility] Test 00:00:00 0-64 YRS (1 - PCV) Medical C enter [code = PNEUMOCOCCAL VACCINE 0-64 YRS (1 - PCV)] Future Scheduled [address] [facility] Test 00:00:00 0-64 YRS (1 - PCV) Medical C enter [code = PNEUMOCOCCAL VACCINE 0-64 YRS (1 - PCV)] Future Scheduled 1991-01-12 COVID-19 VACCINE (#1) [facility] 00:00:00 [code = COVID-[address] VACCINE (#1)] Future Scheduled 1991-01-12 COVID-19 VACCINE (#1) [facility] 00:00:00 [code = COVID-[address] VACCINE (#1)] Encounters Start End Encounter Admission Attending Care Care Encounter Source Date/Time Date/Time Type Type Clinicians Facility Department ID 2022-08-23 2022-08-23 Telephone Jovanny, UNIVERSIT [id number] Univers 00:00:00 00:00:00 [facility] [id number] i ty of [facility] [id number] [id number] [id number] [place] 2022-08-20 2022-08-20 Office Regulo Santiago [facility] [id number] [facility] 11:30:00 12:00:00 Visit Renetta White [facility] 2022-08-18 2022-08-18 Telephone Jovanny, UNIVERSIT [id number] Univers 00:00:00 00:00:00 [facility] [id number] i ty of [facility] [id number] [id number] [place] [address] [place] 2022-08-12 2022-08-12 Outpatient R JOVANNY, [facility] [id number] Univers 10:05:44 23:59:00 [facility] 2022-08-12 2022-08-12 Hospital Jovanny, UNIVERSIT [id number] Univers 07:43:41 10:04:00 Encounter [facility] [id number] ity of [facility] [id number] [id number] [place] [id number] [place] 2022-08-09 2022-08-09 Laboratory Only, Adc Test [facility] [id number] Univers 10:30:00 10:45:00 Only Jovanny, [facility] [id number] .[id number] ity [facility] [id number] [id number] [facility] 353 Branch 2022-08-09 2022-08-09 Outpatient R JOVANNY, [facility] [id number] Univers 10:30:00 10:30:00 [facility] 2022-08-02 2022-08-02 Telephone Jovanny, UN[facility]ERSIT [id number] Univers 00:00:00 00:00:00 [facility] [id number] i ty of [facility] [id number] [id number] [address] 2022-07-22 2022-07-22 Telephone Jovanny, UNIVERSIT [id number] Univers 00:00:00 00:00:00 [facility] HEALTH [id number] i ty of [facility] [id number] [id number] [address] 2022-07-21 2022-07-21 Telephone Jovanny, UNIVERSIT [id number] Univers 00:00:00 00:00:00 [facility] [id number] i ty of [facility] [id number] [id number] [address] 2022-07-20 2022-07-20 Abstract Deisy [facility] [id number] 00:00:00 00:00:00 [facility] 2022-07-19 2022-07-19 Abstract Deisy [facility] [id number] 00:00:00 00:00:00 [facility] 2022-07-19 2022-07-19 Telephone Jovanny, UNIVERSIT [id number] Univers 00:00:00 00:00:00 [facility] [id number] i ty of [facility] [id number] [id number] [place] [address] [place] 2022-07-14 2022-07-14 Dining Chair Seat Cushion Trimmer [facility] UNIVERSIT [id number] Univers 10:45:00 11:00:00 Visit David Petty HEALTH [id number] .10 ity of CLINICS [id number] [id number] [place] [address] Branch 2022-07-14 2022-07-14 Outpatient R JOVANNY, [facility] [id number] Univers 10:45:00 10:45:00 [facility]-14 2022-07-14 Outpatient R JOVANNY, [facility] [id number] Univers 10:45:00 10:45:00 DAVID ity of [facility] 2022-07-14 2022-07-14 Office Jovanny, UNIVERSIT [id number] Univers 10:00:00 10:30:00 [facility] [id number] i ty of [facility] [id number] [id number] [facility] [address] 2022-07-14 2022-07-14 Orders Doctor ALCIDES [id number] Univers 00:00:00 00:00:00 Only Unassigned, THUY [id number] ity of [facility] [id number] [place] as [id number] [facility] 009 Branch 2022-06-02 2022-06-02 Telephone [place] [facility] [id number] [facility]00 00:00:00 [facility] 2022-06-02 2022-06-02 Telephone [place] [facility] [id number] [facility] 00:00[facility]00 00:00:00 [facility] 2022-06-01 2022-06-01 Office Kiel Gmaboa [facility] [id number] [facility] 13:30:00 14:00:00 Visit [facility] 2022-06-01 2022-06-01 Office Kiel Prasad [facility] [id number] [facility] 13:30:00 14:00:00 Visit [facility] 2022-05-31 2022-05-31 Telephone Ranulfo [facility] [id number] [facility] 00:00[facility]00 00:00:00 [facility] 2022-05-31 2022-05-31 Telephone Ranulfo [facility] [id number] [facility] 00:00[facility]00 00:00:00 [facility] 2022-05-13 2022-05-13 Telephone Pradip [facility] [id number] [facility] [address] 00:00[facility]00 00:00:00 [facility] 2022-05-13 2022-05-13 Telephone Pradip, [facility] [id number] 00:00[facility]00 00:00:00 [facility] 2022-05-05 2022-05-05 Bere Lynn [facility] [id number] [facility] 00:[facility] 00:00:00 [facility] 2022-05-05 2022-05-05 Documentedi Lynn [facility] [id number] 00:00[facility]00 00:00:00 [facility] 2022-04-30 2022-04-30 Office Kiel Gamboa [facility] [id number] 12:00:00 13:00:00 Visit [facility] 2022-04-30 2022-04-30 Office Kiel Prasad [facility] [id number] 12:00:00 13:00:00 Visit [facility] 2022-04-30 2022-04-30 Outpatient KIEL GAMBOA [facility] [id number] [facility] 00:00:00 00:00:00 2022-04-30 2022-04-30 [facility] [id number] 00:00[facility]00 00:00:00 cipriano Kenyatta [facility] 2022-04-30 2022-04-30 Documentedi [facility] [id number] [facility] 2022-01-09 2022-01-09 Outpatient Katy COVARRUBIAS [facility] [id number] Univers 13:20:00 13:35:25 [facility] 2022-01-09 2022-01-09 Nurse Nurse, [facility] [id number] Univers 13:20:00 13:35:25 [place] [id number] [facility] 4.2.7.2.686 [place] as LIZANDRO?BLEA [id number] Vt farhad STONEEY [address] [place] [facility] 2021-03-14 2021-03-14 Urgent Provider, [facility] [id number] Univers 10:21:38 10:41:38 Care Alcides [facility] [id number] ity of [place] [id number] [place] as Professio [id number] Vt farhad fajardo [address] [place] [address] 2021-03-14 2021-03-14 Outpatient R JULIANN [facility] [id number] Univers 10:20:00 10:20:00 [facility] Results Test Description Test Time Test Comments Results Result Comments Source HEPATIC FUNCTION PANEL 2022-08-20 13:28:50 Test Item Value Reference Range Interpretation Comme nts TOTAL PROTEIN (BEAKER) (test code = 770) 8.3 gm/dL 6.0-8.3 ALBUMIN (BEAKER) (test code = 1145) 4.8 g/dL 3.5-5.0 BILIRUBIN TOTAL (BEAKER) (test code = 377) 1.0 mg/dL 0.2-1.2 BILIRUBIN DIRECT (BEAKER) (test code = 706) 0.4 mg/dL 0.1-0.5 ALKALINE PHOSPHATASE (BEAKER) (test code = 346) 69 U/L 40-150 AST (SGOT) (BEAKER) (test code = 353) 33 U/L 5-34 ALT (SGPT) (BEAKER) (test code = 347) 47 U/L 6-55 Computer Designer ID - MITCHBASIC METABOLIC [id number] 13:28:45 Test Item Value Reference Range Interpretation Comments SODIUM (BEAKER) 138 meq/L 136-145 (test code = 381) POTASSIUM 4.3 meq/L 3.5-5.1 (BEAKER) (test code = 379) CHLORIDE (BEAKER) 99 meq/L 98-107 (test code = 382) CO2 (BEAKER) 26 meq/L 22-29 (test code = 355) BLOOD UREA 15 mg/dL 7-21 NITROGEN (BEAKER) (test code = 354) CREATININE 0.85 mg/dL 0.57-1.25 (BEAKER) (test code = 358) GLUCOSE RANDOM 78 mg/dL 70-105 (BEAKER) (test code = 652) CALCIUM (BEAKER) 9.8 mg/dL 8.4-10.2 (test code = 697) EGFR (BEAKER) 119 Interpretatio n of eGFR (test code = mL/min/1.73 values Stage De scription 1092) sq m Result G1 Norm al or high >=90 G2 Mildly decreased 60-89 G3a Mildl y to moderately 45-5 9 G3b Moderately to s everely 30-44 G4 Severl y decreased 15-29 G5 Kidne y failure <15Reported eGF R is based on the CKD-EPI 2020 equation that d oes not use a race coefficientEsti mated GFR is not as accur ate as Creatinine Shahla owen in predicting glom erular filtration rate . Estimated GFR is not appl icable for dialysis patien ts Computer Designer ID - MITCHCBC W/PLT COUNT & AUTO [id number] 12:59:37 Test Item Value Reference Range Interpretation Comments WHITE BLOOD CELL COUNT (BEAKER) 6.3 K/ L 3.5-10.5 (test code = 775) RED BLOOD CELL COUNT (BEAKER) 5.55 M/ L 4.63-6.08 (test code = 761) HEMOGLOBIN (BEAKER) (test code = 17.3 GM/DL 13.7-17.5 410) HEMATOCRIT (BEAKER) (test code = 49.4 % 40.1-51.0 411) MEAN CORPUSCULAR VOLUME (BEAKER) 89.0 fL 79.0-92.2 (test code = 753) MEAN CORPUSCULAR HEMOGLOBIN 31.2 pg 25.7-32.2 (BEAKER) (test code = 751) MEAN CORPUSCULAR HEMOGLOBIN CONC 35.0 GM/DL 32.3-36.5 (BEAKER) (test code = 752) RED CELL DISTRIBUTION WIDTH 11.9 % 11.6-14.4 (BEAKER) (test code = 412) PLATELET COUNT (BEAKER) (test 144 K/CU MM 150-450 L code = 756) MEAN PLATELET VOLUME (BEAKER) 9.1 fL 9.4-12.4 L (test code = 754) NUCLEATED RED BLOOD CELLS 0 /100 WBC 0-0 (BEAKER) (test code = 413) NEUTROPHILS RELATIVE PERCENT 60 % (BEAKER) (test code = 429) LYMPHOCYTES RELATIVE PERCENT 29 % (BEAKER) (test code = 430) MONOCYTES RELATIVE PERCENT 8 % (BEAKER) (test code = 431) EOSINOPHILS RELATIVE PERCENT 1 % (BEAKER) (test code = 432) BASOPHILS RELATIVE PERCENT 1 % (BEAKER) (test code = 437) NEUTROPHILS ABSOLUTE COUNT 3.77 K/ L 1.78-5.38 (BEAKER) (test code = 670) LYMPHOCYTES ABSOLUTE COUNT 1.85 K/ L 1.32-3.57 (BEAKER) (test code = 414) MONOCYTES ABSOLUTE COUNT (BEAKER) 0.53 K/ L 0.30-0.82 (test code = 415) EOSINOPHILS ABSOLUTE COUNT 0.09 K/ L 0.04-0.54 (BEAKER) (test code = 416) BASOPHILS ABSOLUTE COUNT (BEAKER) 0.03 K/ L 0.01-0.08 (test code = 417) IMMATURE GRANULOCYTES-RELATIVE 0 % 0-1 PERCENT (BEAKER) (test code = 2801) Echocardiogram dobutamine stress [id number] 16:30:01 Test Item Value Reference Range Interpretation Comments Height (test code = in 1899012154) Weight (test code = lbs 2833704333) Systolic BP (test mmHg code = 9647145146) Diastolic BP (test mmHg code = 4177809978) Heart Rate (test bpm code = 3032879087) BSA (test code = 1.89 m2 4582945723) Radiology Study observation (narrative) (test code = 91426-3) DAVID (test code = Table formatting from the DAVID) original result was not included. ?Left?Ventricle: Left ventricle is normal in size and function. Normal wall thickness. Septal motion is normal. . Normal systolic function with a visually estimated EF of 55 - 60%. Normal diastolic function. ?Left?Atrium: Left atrium size is normal. Saline contrast shows extracardiac shunt ( bubble cross over at 6 beats) . ?Post-stress: The post-stress echo shows appropriate increased thickness to all myocardial segments, increased ejection fraction 75-80% and no wall motion abnormalities noted. ?Post-stress?Impression: Adequate hemodynamic response, adequate inotropic response, adequate chronotropic response and negative stress echocardiography study for inducible ischemia. Stress ResultsProtocol: DSE Maximum Predicted HR: 188 Target HR: 160 % Maximum Predicted HR: 87 Stage Duration (mm:ss) Heart Rate (bpm) BP Dose Comment Baseline ?58 140/80 ?Saline contrast study, definity Peak 17:25 165 139/86 40 THR achieved, nausea Recovery 4 4:00 162 139/82 ?nausea resolved Recovery 10 10:00 122 127/85 ? ?Add'l Recovery 20:00 100 119/70 ? ?Stress Duration: 17:25 Recovery Time: 20:00 Maximum Stress HR: 165 ? Left VentricleLeft ventricle is normal in size and function. Normal wall thickness. Septal motion is normal. . Normal systolic function with a visually estimated EF of 55 - 60%. Normal diastolic function.Right VentricleRight ventricle is normal in size and function. Normal wall thickness. Normal systolic function.Left AtriumLeft atrium size is normal. Saline contrast shows extracardiac shunt ( bubble cross over at 6 beats) .Right AtriumRight atrium size is normal.IVC/SVCIVC diameter is less than or equal to 21 mm and decreases greater than 50% during inspiration; therefore the estimated right atrial pressure is normal (~0-5 mmHg). IVC normal in size and respiratory variation.Mitral ValveMitral valve is normal in structure and function. No transvalvular regurgitation. No stenosis.Tricuspid ValveTricuspid valve is normal size and function. Trace transvalvular regurgitation. Right ventricular systolic pressure is normal. RA pressure is 0-5 mmHg. No stenosis.Aortic ValveAortic valve is normal in structure and function.Pulmonic ValvePulmonic valve is normal in structure and function.PericardiumThe pericardium is normal. No pericardial effusion.Study DetailsStudy quality was adequate. A Dobutamine stress echocardiogram was performed using 2D, color flow Doppler and spectral Doppler. 2 mL of Definity ultrasound enhancing agent used and saline contrast was performed. Patient exhibited sinus bradycardia. -Vijay LAshlee Lopez R.N.Resting ECGNormal sinus rhythm.Stress ECGSinus tachycardia. No significant ST depression.Echo Post StressThe post-stress echo shows appropriate increased thickness to all myocardial segments, increased ejection fraction 75-80% and no wall motion abnormalities noted.Study ImpressionAdequate hemodynamic response, adequate inotropic response, adequate chronotropic response and negative stress echocardiography study for inducible ischemia. [facility] [id number] 17:03:09 Test Item Value Reference Range Interpretation Comments TOTAL PROTEIN (BEAKER) 7.9 gm/dL 6.0-8.3 Speci men slightly (test code = 770) hemolyzed ALBUMIN (BEAKER) (test 4.7 g/dL 3.5-5.0 Speci men slightly code = 1145) hemolyzed BILIRUBIN TOTAL 1.0 mg/dL 0.2-1.2 Specimen sli ghtly (BEAKER) (test code = hemoly zed 377) BILIRUBIN DIRECT 0.4 mg/dL 0.1-0.5 Specimen sl ightly (BEAKER) (test code = hemoly zed 706) ALKALINE PHOSPHATASE 67 U/L 40-150 (BEAKER) (test code = 346) AST (SGOT) (BEAKER) 37 U/L 5-34 H Specimen slightly (test code = 353) hemolyzed ALT (SGPT) (BEAKER) 96 U/L 6-55 H Specimen slightly (test code = 347) hemolyzed Computer Designer ID - BSCBC W/PLT COUNT & AUTO [id number] 16:48:26 Test Item Value Reference Range Interpretation [...] method.Test performed by IFA method.HEPATITIS A ANTIBODY, [id number] 15:39:02 Test Item Value Reference Range Interpretation Comments HEPATITIS A IGG ANTIBODY (BEAKER) Nonreactive Nonreactive (test code = 2797) Computer Designer ID - BSHEPATITIS B SURFACE [id number] 15:38:57 Test Item Value Reference Range Interpretation Comments HEPATITIS B SURFACE ANTIBODY 694.4 mIU/mL <8.0 H (BEAKER) (test code = 647) Computer Designer ID - [id number] 15:18:35 Test Item Value Reference Range Interpretation Comments ALPHA-1 ANTITRYPSIN (BEAKER) 133.20 mg/dL 90.00-200.00 (test code = 502) Computer Designer ID - LEOBARDO MOperator ID - BSIMMUNOGLOBULIN G (IGG)2022-04-30 15:18:20 Test Item Value Reference Range Interpretation Comments IMMUNOGLOBULIN G (IGG) 1176 mg/dL See_Comment [Aut omated message] (BEAKER) (test code = The sy stem which 427) generated this result transmit ricarda reference range : 540-1,822. The reference range was not used to interpret this result as normal/abnormal . Computer Designer ID - [id number] 15:03:13 Test Item Value Reference Range Interpretation Comments FERRITIN (BEAKER) (test code = 151.93 ng/mL 5.00-275.00 361) Computer Designer ID - BSCOMPREHENSIVE METABOLIC [id number] 14:45:00 Test Item Value Reference Range Interpretation [...] 1092) DATA TO CALCULA TE ESTIMATED GFR. Computer Designer ID - LEOBARDO MBILIRUBIN, [id number] 14:42:46 Test Item Value Reference Range Interpretation Comments BILIRUBIN DIRECT (BEAKER) (test 0.3 mg/dL 0.1-0.5 code = 706) Computer Designer ID - LEOBARDO FUENTES, TIBC, % SAT. (WITHOUT FERRITIN)2022-04-30 14:42:46 Test Item Value Reference Range Interpretation Comments IRON (BEAKER) (test code = 547) 95.0 ug/dL 40.0-160.0 TOTAL IRON BINDING CAPACITY 315 ug/dL 250-450 (BEAKER) (test code = 769) IRON % SATURATION (2) (BEAKER) 30 % 20-55 (test code = 2590) Computer Designer ID Dalia BOOTH MCBC W/PLT COUNT & AUTO [id number] 14:28:04 Test Item Value Reference Range Interpretation [...] % 0-1 PERCENT (BEAKER) (test code = 7161)
[2022-09-10] MEDS ORDERED: ASPIRIN 81 MG CHEWABLE TABLET ONE (16:07)
[2022-09-10] MEDS ORDERED: FAMOTIDINE 20 MG/2 ML VIAL IV ONE (16:08)
[2022-09-10 16:38] LABS: Protime INR 1.15
[2022-09-10 16:39] LABS: Absolute Lymphocytes (CBC) 1.3 K/uL (0.7-4.9); Hematocrit 49.9 % (39.6-49.0); Lymphocytes % 20.7 % (15.3-44.8); MCV 91.2 fL (80-100); MPV 7.4 fL (7.6-11.3); RBC Red Blood Cell Count 5.47 M/uL (4.33-5.43)
[2022-09-10 16:39] LABS: SARS-CoV-2 Antigen Rapid Res Negative (Negative)
[2022-09-10 16:53] LABS: Albumin 4.2 g/dL (3.4-5.0); Bilirubin Direct 0.3 mg/dL (0-0.2); Bilirubin Total 1.4 mg/dL (0.2-1.0); Magnesium 2.2 mg/dL (1.8-2.4); Potassium 3.2 mmol/L (3.5-5.1); Protein, Total 8.4 g/dL (6.4-8.2); Troponin High Sensitivity 4.2 pg/mL (<58.9)
--- NOTE | 2022-09-10 16:53 | RAD REPORT ---
EXAM DESCRIPTION: RAD - Chest Single View - 09/10/2022 4:26 pm CLINICAL HISTORY: CHEST PAIN COMPARISON: Portable 07/18/2022 TECHNIQUE: AP portable chest image was obtained 09/10/2022 4:26 pm . FINDINGS: Lungs are clear. Interstitial pattern matches comparison. Heart and vasculature are normal . No measurable pleural effusion and no pneumothorax. No acute bony abnormality seen. No acute aortic findings suspected. IMPRESSION: No acute cardiopulmonary process. No significant change from comparison study.
[2022-09-10] MEDS ORDERED: METOPROLOL XL 50 MG TAB PO ONE (17:13)
[2022-09-10] MEDS ORDERED: ENOXAPARIN 80 MG/0.8 ML SQ ONE ×2 (17:13→18:25)
[2022-09-10] MEDS ORDERED: POTASSIUM 25 MEQ EFFERV TAB ONE (17:13)
--- NOTE | 2022-09-10 17:14 | ER ---
Nurse's Notes [facility] Name: John Hoffmann Age: 32 yrs Sex: Male : 1990 Arrival Date: 09/10/2022 Time: 15:05 Bed 2 Private MD: Marco Arevalo Diagnosis: Chest pain, unspecified Presentation: 09/10 15:24 Chief complaint: Patient states: Pt reports middle chest pain x3-4 days. Pt reports kb3 endoscopy 1 week ago due to pain in shoulder and chest x2 months. Pt was evaluated by cardiology 1 month ago with echo and stress test with no findings. States the pain is getting worse. Coronavirus screen: Vaccine status: Patient reports being unvaccinated. Client denies travel out of the [place] in the last 14 days. Ebola Screen: Patient negative for fever greater than or equal to 101.5 degrees Fahrenheit, and additional compatible Ebola Virus Disease symptoms Patient denies exposure to infectious person. Patient denies travel to an Ebola-affected area in the 21 days before illness onset. No symptoms or risks identified at this time. Initial Sepsis Screen: Does the patient meet any 2 criteria? No. Patient's initial sepsis screen is negative. Does the patient have a suspected source of infection? No. Patient's initial sepsis screen is negative. Risk Assessment: Do you want to hurt yourself or someone else? Patient reports no desire to harm self or others. Onset of symptoms is unknown. 15:24 Method Of Arrival: Ambulatory kb3 15:24 Acuity: FRENCH 3 kb3 Triage Assessment: 15:27 General: Appears in no apparent distress. Behavior is calm, cooperative. Pain: kb3 Complains of pain in anterior aspect of right upper chest, anterior aspect of left upper chest and mid-sternal area Pain does not radiate. Pain currently is 6 out of 10 on a pain scale. Quality of pain is described as sharp, Pain began 2-3 months ago, worse over the last few days. Cardiovascular: Denies nausea, palpitations, shortness of breath, vomiting. Historical: - Allergies: 15:27 No Known Allergies; kb3 - Home Meds: 15:27 pantoprazole 40 mg Oral TbEC Every other day [Active]; tizanidine 4 mg Oral tab 1 tab kb3 nightly [Active]; tramadol 50 mg Oral tab 1 tab BID for Pain [Active]; - PMHx: 15:27 chronic back pain; GERD; kb3 - PSHx: 15:27 Appendectomy; Cholecystectomy; kb3 - Immunization history:: Adult Immunizations up to date, Client reports receiving the 2nd dose of the Covid vaccine, Last tetanus immunization: up to date. - Social history:: Smoking status: Patient denies any tobacco usage or history of. - Family history:: not pertinent. Screenin:30 Abuse screen: Denies threats or abuse. Nutritional screening: No deficits noted. ll1 Tuberculosis screening: No symptoms or risk factors identified. Fall Risk IV access (20 points). Total Collins Fall Scale indicates No Risk (0-24 pts). Assessment: 16:15 Reassessment: No changes from previously documented assessment. Patient and/or family ll1 updated on plan of care and expected duration. Pain level reassessed. Patient is alert, oriented x 3, equal unlabored respirations, skin warm/dry/pink. 16:39 Reassessment: No changes from previously documented assessment. Patient and/or family ll1 updated on plan of care and expected duration. Pain level reassessed. 17:40 Reassessment: No changes from previously documented assessment. Patient and/or family ll1 updated on plan of care and expected duration. Pain level reassessed. 18:45 Reassessment: No changes from previously documented assessment. Patient and/or family ll1 updated on plan of care and expected duration. Pain level reassessed. Patient is alert, oriented x 3, equal unlabored respirations, skin warm/dry/pink. Vital Signs: 15:24 BP 119 / 86; Pulse 93; Resp 20; Temp 99.1; Pulse Ox 100% ; Weight 72.57 kg; Height 5 kb3 ft. 10 in. (177.80 cm); Pain 6/10; 16:40 BP 125 / 88; Pulse 79; Pulse Ox 100% on R/A; ll1 17:09 BP 115 / 78; Pulse 80; ll1 18:48 BP 121 / 85; Pulse 73; Resp 17; Pulse Ox 100% on R/A; ll1 15:24 Body Mass Index 22.96 (72.57 kg, 177.80 cm) kb3 ED Course: 15:05 Patient arrived in ED. mr 15:05 Marco Arevalo MD is Private Physician. mr 15:27 Triage completed. kb3 15:27 Arm band placed on right wrist. kb3 15:30 Naveen Anne, JORJE is Primary Nurse. ll1 15:30 Patient placed in an exam room, on a stretcher. ll1 15:31 Patient has correct armband on for positive identification. Bed in low position. Call ll1 light in reach. Side rails up X 1. Client placed on continuous cardiac and pulse oximetry monitoring. NIBP monitoring applied. manager monitoring on. 15:31 Patient maintains SpO2 saturation greater than 95% on room air. ll1 15:44 Chris Mcgarry MD is Attending Physician. mela 16:14 Initial lab(s) drawn, by me, sent to lab. COVID swab sent to lab. Inserted saline lock: vg1 20 gauge in right antecubital area, using aseptic technique. Blood collected. 16:14 SARS RAPID Sent. vg1 16:28 XRAY Chest (1 view) In Process Unspecified. EDMS 17:12 Akash Shirley is Hospitalizing Provider. mela 19:56 No provider procedures requiring assistance completed. Patient admitted, IV remains in jb4 place. Administered Medications: 16:22 Drug: Aspirin Chewable Tablet 81 mg Route: PO; vg1 16:39 Follow up: Response: No adverse reaction ll1 16:23 Drug: Pepcid (famotidine) 20 mg Route: IVP; Site: right antecubital; vg1 16:40 Follow up: Response: No adverse reaction ll1 17:23 Drug: Potassium Effervescent Tablet 50 mEq Route: PO; ll1 18:46 Follow up: Response: No adverse reaction ll1 17:23 Not Given (Patient Refused): Lovenox (enoxaparin) 1 mg/kg Sub-Q once ll1 17:23 Drug: ToPROL XL (metoprolol SUCCINATE) 25 mg Route: PO; ll1 18:46 Follow up: Response: No adverse reaction ll1 18:46 Drug: Lovenox (enoxaparin) 1 mg/kg Route: Sub-Q; Site: left lower abdomen; ll1 18:54 Follow up: Response: No adverse reaction ll1 Medication: 15:31 VIS not applicable for this client. ll1 Outcome: 17:13 Decision to Hospitalize by Provider. mela 19:56 Admitted to Tele accompanied by tech, via wheelchair, room 427, Report called to letty You RN 19:56 Condition: stable 19:56 Discharge instructions given to patient, Instructed on the need for admit, Demonstrated understanding of instructions. 19:58 Patient left the ED. letty Signatures: Dispatcher [employer] Chris Herrera MD MD cha Rivera, Gail mr OcampoDaniel, RN JORJE [email or web address] Cheslie Small RN JORJE 1 Naveen Anne RN RN ll1 Meme Abrams RN RN kb3 Corrections: (The following items were deleted from the chart) 15: 15:27 Home Meds: alfuzosin 10 mg Oral Tb24 1 tab nightly; kb3 kb3 15:28 15:27 Home Meds: Humira subcutaneous; kb3 kb3
--- NOTE | 2022-09-10 17:14 | EDPHYS ---
Physician Documentation [facility] Name: John Hoffmann Age: 32 yrs Sex: Male : 1990 Arrival Date: 09/10/2022 Time: 15:05 Bed 2 Private MD: Marco Arevalo ED Physician Chris Mcgarry HPI: 09/10 17:06 This 32 yrs old Male presents to ER via Ambulatory with complaints of Chest mela Pain. 17:06 The patient or guardian reports chest pain that is located primarily in the substernal mela area, anterior chest wall, bilaterally. The pain radiates to Associated signs and symptoms: Pertinent positives: lightheadedness. The chest pain is described as aching, a pressure. Duration: The patient or guardian reports multiple episodes, that wax and wane, with no pattern. Modifying factors: The symptoms are alleviated by nothing. the symptoms are aggravated by nothing. Severity of pain: At its worst the pain was mild in the emergency department the pain is unchanged. The patient has not experienced similar symptoms in the past. Historical: - Allergies: 15:27 No Known Allergies; kb3 - Home Meds: 15:27 pantoprazole 40 mg Oral TbEC Every other day [Active]; tizanidine 4 mg Oral tab 1 tab kb3 nightly [Active]; tramadol 50 mg Oral tab 1 tab BID for Pain [Active]; - PMHx: 15:27 chronic back pain; GERD; kb3 - PSHx: 15:27 Appendectomy; Cholecystectomy; kb3 - Immunization history:: Adult Immunizations up to date, Client reports receiving the 2nd dose of the Covid vaccine, Last tetanus immunization: up to date. - Social history:: Smoking status: Patient denies any tobacco usage or history of. - Family history:: not pertinent. ROS: 17:06 Constitutional: Negative for fever, chills, and weight loss, Eyes: Negative for injury, mela pain, redness, and discharge, ENT: Negative for injury, pain, and discharge, Neck: Negative for injury, pain, and swelling, Respiratory: Negative for shortness of breath, cough, wheezing, and pleuritic chest pain, Abdomen/GI: Negative for abdominal pain, nausea, vomiting, diarrhea, and constipation, Back: Negative for injury and pain, : Negative for injury, bleeding, discharge, and swelling, MS/Extremity: Negative for injury and deformity, Skin: Negative for injury, rash, and discoloration, Neuro: Negative for headache, weakness, numbness, tingling, and seizure, Psych: Negative for depression, anxiety, suicide ideation, homicidal ideation, and hallucinations, Allergy/Immunology: Negative for hives, rash, and allergies, Endocrine: Negative for neck swelling, polydipsia, polyuria, polyphagia, and marked weight changes, Hematologic/Lymphatic: Negative for swollen nodes, abnormal bleeding, and unusual bruising. 17:06 Cardiovascular: Positive for chest pain, of the chest. 17:06 Cardiovascular: Positive for Exam: 17:06 Constitutional: This is a well developed, well nourished patient who is awake, alert, mela and in no acute distress. Head/Face: Normocephalic, atraumatic. Eyes: Pupils equal round and reactive to light, extra-ocular motions intact. Lids and lashes normal. Conjunctiva and sclera are non-icteric and not injected. Cornea within normal limits. Periorbital areas with no swelling, redness, or edema. ENT: Nares patent. No nasal discharge, no septal abnormalities noted. Tympanic membranes are normal and external auditory canals are clear. Oropharynx with no redness, swelling, or masses, exudates, or evidence of obstruction, uvula midline. Mucous membranes moist. Neck: Trachea midline, no thyromegaly or masses palpated, and no cervical lymphadenopathy. Supple, full range of motion without nuchal rigidity, or vertebral point tenderness. No Meningismus. Chest/axilla: Normal chest wall appearance and motion. Nontender with no deformity. No lesions are appreciated. Cardiovascular: Regular rate and rhythm with a normal S1 and S2. No gallops, murmurs, or rubs. Normal PMI, no JVD. No pulse deficits. Respiratory: Lungs have equal breath sounds bilaterally, clear to auscultation and percussion. No rales, rhonchi or wheezes noted. No increased work of breathing, no retractions or nasal flaring. Abdomen/GI: Soft, non-tender, with normal bowel sounds. No distension or tympany. No guarding or rebound. No evidence of tenderness throughout. Back: No spinal tenderness. No costovertebral tenderness. Full range of motion. Skin: Warm, dry with normal turgor. Normal color with no rashes, no lesions, and no evidence of cellulitis. MS/ Extremity: Pulses equal, no cyanosis. Neurovascular intact. Full, normal range of motion. Neuro: Awake and alert, GCS 15, oriented to person, place, time, and situation. Cranial nerves II-XII grossly intact. Motor strength 5/5 in all extremities. Sensory grossly intact. Cerebellar exam normal. Normal gait. Psych: Awake, alert, with orientation to person, place and time. Behavior, mood, and affect are within normal limits. 17:06 ECG was reviewed by the Attending Physician. Vital Signs: 15:24 BP 119 / 86; Pulse 93; Resp 20; Temp 99.1; Pulse Ox 100% ; Weight 72.57 kg; Height 5 kb3 ft. 10 in. (177.80 cm); Pain 6/10; 16:40 BP 125 / 88; Pulse 79; Pulse Ox 100% on R/A; ll1 17:09 BP 115 / 78; Pulse 80; ll1 18:48 BP 121 / 85; Pulse 73; Resp 17; Pulse Ox 100% on R/A; ll1 15:24 Body Mass Index 22.96 (72.57 kg, 177.80 cm) kb3 MDM: 15:44 Patient medically screened. mela 17:10 Differential diagnosis: abnormal EKG, acute myocardial infarction, acute pericarditis, mela anxiety, chest wall pain, congestive heart failure Cholelithiasis costochondritis, esophagitis, gastroesophageal reflux disease (GERD), hiatal hernia, pancreatitis, peptic ulcer disease, pulmonary embolus, stable angina, unstable angina. HEART Score: History: Slightly Suspicious (0), ECG: Non specific repolarization disturbance / LBTB / PM (1), Age: < or = 45 years (0), Risk Factors: 1 or 2 risk factors (1), [Hypertension] [+ Family HX] Troponin: < or = 1 x Normal Limit (0). The patient's deep vein thrombosis risk score was calculated as follows: Total Score: 0. This patient was found to be at low risk for a deep vein thrombosis by using the Well's assessment criteria. The patient's pulmonary embolism risk score was calculated as follows: Total Score: 0-2 points. This patient was found to be at low risk for a pulmonary embolism by using the Well's assessment criteria. ANDREW Risk Score: TOTAL SCORE = 0. Data reviewed: vital signs, nurses notes, lab test result(s), EKG, radiologic studies, CT scan, plain films. 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 Test interpretation: by ED physician or midlevel provider: ECG, plain radiologic studies. Counseling: I had a detailed discussion with the patient and/or guardian regarding: the historical points, exam findings, and any diagnostic results supporting the discharge/admit diagnosis, lab results, radiology results, the need for outpatient follow up, the need for further work-up and treatment in the hospital. 09/10 15:45 Order name: Basic Metabolic Panel; Complete Time: 17:03 [facility] 09/10 15:45 Order name: CBC with Diff; Complete Time: 17:03 [facility] 09/10 15:45 Order name: LFT's; Complete Time: 17:03 [facility] 09/10 15:45 Order name: Magnesium; Complete Time: 17:03 [facility] 09/10 15:45 Order name: NT PRO-BNP; Complete Time: 17:03 mela 09/10 15:45 Order name: PT-INR; Complete Time: 17:03 mela 09/10 15:45 Order name: Troponin HS; Complete Time: 17:03 [facility] 09/10 15:45 Order name: XRAY Chest (1 view); Complete Time: 17:03 [facility] 09/10 15:45 Order name: Lipase; Complete Time: 17:03 [facility] 09/10 15:45 Order name: SARS RAPID; Complete Time: 17:03 [facility] 09/10 15:43 Order name: EKG; Complete Time: 15:44 ll1 09/10 15:43 Order name: EKG - Nurse/Tech; Complete Time: 15:43 ll1 09/10 15:45 Order name: Cardiac monitoring; Complete Time: 16:04 [facility] 09/10 15:45 Order name: IV Saline Lock; Complete Time: 16:14 [facility] 09/10 15:45 Order name: Labs collected and sent; Complete Time: 16:14 [facility] 09/10 15:45 Order name: O2 Per Protocol; Complete Time: 16:04 [facility] 09/10 15:45 Order name: O2 Sat Monitoring; Complete Time: 16:04 [facility] EC:06 Rate is 71 beats/min. Rhythm is regular. QRS [place] is Normal. [place] interval is normal. QRS mela interval is normal. QT interval is normal. No Q waves. T waves are Normal. ST Segment is depressed in leads II, III, aVF, V6. Clinical impression: NSR w/ Non-specific ST/T Changes. Interpreted by me. Reviewed by me. Administered Medications: 16:22 Drug: Aspirin Chewable Tablet 81 mg Route: PO; vg1 16:39 Follow up: Response: No adverse reaction ll1 16:23 Drug: Pepcid (famotidine) 20 mg Route: IVP; Site: right antecubital; vg1 16:40 Follow up: Response: No adverse reaction ll1 17:23 Drug: Potassium Effervescent Tablet 50 mEq Route: PO; ll1 18:46 Follow up: Response: No adverse reaction ll1 17:23 Not Given (Patient Refused): Lovenox (enoxaparin) 1 mg/kg Sub-Q once ll1 17:23 Drug: ToPROL XL (metoprolol SUCCINATE) 25 mg Route: PO; ll1 18:46 Follow up: Response: No adverse reaction ll1 18:46 Drug: Lovenox (enoxaparin) 1 mg/kg Route: Sub-Q; Site: left lower abdomen; ll1 18:54 Follow up: Response: No adverse reaction ll1 Disposition Summary: 09/10/22 17:13 Hospitalization Ordered Hospitalization Status: Observation mela Provider: Akash Shirley cha Location: Telemetry/MedSurg (observation) mela Condition: Fair mela Problem: new mela Symptoms: have improved mela Bed/Room Type: Standard [facility] Room Assignment: 427(09/10/22 18:35) Diagnosis - Chest pain, unspecified mela Forms: - Medication Reconciliation Form mela - SBAR form mela Signatures: Dispatcher [employer] Roxana Saab RN RN dw Anderson, Corey, MD MD cha Garcia, Victoria RN RN vg1 Naveen Anne RN RN ll1 Meme Abrams RN RN kb3 Corrections: (The following items were deleted from the chart) 15:28 15:27 Home Meds: alfuzosin 10 mg Oral Tb24 1 tab nightly; kb3 kb3 15:28 15:27 Home Meds: Humira subcutaneous; kb3 kb3 18:35 17:13 mela dw
--- NOTE | 2022-09-10 19:30 | P.HP ---
Certification for Inpatient Patient admitted to: Observation With expected LOS: <2 Midnights Patient will require the following post-hospital care: None Practitioner: I am a practitioner with admitting privileges, knowledge of patient current condition, hospital course, and medical plan of care. Services: Services provided to patient in accordance with Admission requirements found in Title 42 Section 412.3 of the Code of Federal Regulations Patient History Date of Service: 09/10/22 Primary Care Provider: Ernesto Reason for admission: Chest Pain History of Present Illness: Patient is a 32 year old male with history of ankylosing spondylitis and GERD who presented to the ED with complaints of chest pain. Patient reports that he has had chest pain on and off for about 2 months now. He states that it initially felt like pressure and but now it comes and goes as a sharp pain. He states it will occur randomly, nothing makes it better or worse. He has had an echo, nuclear stress test, endoscopy, and CT angio that have all been unremarkable. His labs today are unremarkable. EKG with non specific ST abnormality. Troponin negative. Vitals stable. He was given aspirin, metoprolol, and lovenox in the ED. ED provider wishes to admit patient for observation. 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 - Family History Family History: Reviewed- Non-Contributory - Social History Smoking Status: Former smoker Alcohol use: No CD- Drugs: No Caffeine use: Yes Place of Residence: Home Review of Systems Cardiovascular: Chest Pain Physical Examination - Physical Exam General: Alert, In no apparent distress HEENT: Atraumatic, PERRLA, Mucous membr. moist/pink, EOMI, Sclerae nonicteric Neck: Supple, 2+ carotid pulse no bruit, No LAD, Without JVD or thyroid abnormality Respiratory: Clear to auscultation bilaterally, Normal air movement Cardiovascular: Regular rate/rhythm, Normal S1 S2 Gastrointestinal: Normal bowel sounds, No tenderness Musculoskeletal: No tenderness Integumentary: No rashes Neurological: Normal gait, Normal speech, Normal strength at 5/5 x4 extr, Normal tone, Normal affect - Studies Laboratory Data (last 24 hrs) 09/10/22 16:11: PT 12.7 H, INR 1.15 09/10/22 16:11: WBC 6.20, Hgb 17.5, Hct 49.9 H, Plt Count 146 L 09/10/22 16:11: Sodium 137, Potassium 3.2 L, BUN 14, Creatinine 1.08, Glucose 104, Magnesium 2.2, Total Bilirubin 1.4 H, AST 29, ALT 58, Alkaline Phosphatase 68, Lipase 74 Assessment and Plan - Problems (Diagnosis) (1) Chest pain Current Visit: Yes Status: Acute Qualifiers: Chest pain type: unspecified Qualified Code(s): R07.9 - Chest pain, unspecified (2) GERD (gastroesophageal reflux disease) Current Visit: Yes Status: Acute Qualifiers: Esophagitis presence: without esophagitis Qualified Code(s): K21.9 - Gastro-esophageal reflux disease without esophagitis (3) Hypokalemia Current Visit: Yes Status: Acute - Plan -Patient is admitted for observation -Monitor on telemetry. Cardiology consult -Initial troponin negative. Trend. Low suspicion for ACS -Symptoms likely secondary to GERD and/or anxiety/hypochondria -Monitor and replete electrolytes per protocol -Reconcile and continue home medications -Lovenox for VTE prophylaxis -Full code Discharge Plan: Home Plan to discharge in: 24 Hours - Advance Directives Does patient have a Living Will: No Does patient have a Durable POA for Healthcare: No - Code Status/Comfort Care Code Status Assessed: Yes (Full) Critical Care: No Time Spent Managing Pts Care (In Minutes): 50
[2022-09-10] MEDS ORDERED: NITROGLYCERIN 0.4 MG/TAB SL PRN (20:23)
[2022-09-10] MEDS ORDERED: MORPHINE 4 MG/ML SYR IV PRN (20:23)
[2022-09-10 20:26] VITALS: BMI 22.1
[2022-09-10] MEDS ORDERED: TIZANIDINE 4 MG TABLET PO PRN (20:46)
[2022-09-10] MEDS ORDERED: TRAMADOL HCL 50 MG TAB PO PRN (20:46)
[2022-09-10 21:08] VITALS: O2SAT 100
[2022-09-10 21:08] LABS: Troponin High Sensitivity 4.4 pg/mL (<58.9)
[2022-09-10] MEDS ORDERED: DOCUSATE NA 100 MG CAP PO PRN (22:31)
[2022-09-11 05:53] LABS: Absolute Lymphocytes (CBC) 1.7 K/uL (0.7-4.9); Hematocrit 49.3 % (39.6-49.0); Lymphocytes % 29.8 % (15.3-44.8); MCV 92.1 fL (80-100); MPV 7.4 fL (7.6-11.3); RBC Red Blood Cell Count 5.36 M/uL (4.33-5.43)
[2022-09-11 06:05] LABS: Potassium 4.1 mmol/L (3.5-5.1)
[2022-09-11] MEDS ORDERED: PANTOPRAZOLE 40MG TABLET PO SCH (07:30)
[2022-09-11 08:27] VITALS: BP 103/61; TEMP 97.7
[2022-09-11] MEDS ORDERED: ENOXAPARIN 40 MG/0.4 ML SQ SCH (09:00)
[2022-09-11] MEDS ORDERED: ASPIRIN EC 81 MG TAB PO SCH (09:00)
--- NOTE | 2022-09-11 14:08 | P.DS ---
Admission Date: 09/10/22 Discharge Date: 09/11/22 Primary Care Provider: Ernesto Disposition: ROUTINE DISCHARGE Reason for Admission: Chest Pain - Problems (1) Chest pain Status: Acute Qualifiers: Chest pain type: unspecified Qualified Code(s): R07.9 - Chest pain, unspecified (2) Anxiety disorder Status: Acute (3) GERD (gastroesophageal reflux disease) Status: Acute Qualifiers: Esophagitis presence: without esophagitis Qualified Code(s): K21.9 - Gastro-esophageal reflux disease without esophagitis Brief History of Present Illness: Patient is a 32 year old male with history of ankylosing spondylitis and GERD who presented to the ED with complaints of chest pain. Patient reports that he has had chest pain on and off for about 2 months now. He states that it initially felt like pressure and but now it comes and goes as a sharp pain. He states it will occur randomly, nothing makes it better or worse. He has had an echo, nuclear stress test, endoscopy, and CT angio that have all been unremarkable. His labs today are unremarkable. EKG with non specific ST abnormality. Troponin negative. CTA Thorax done in the ED negative for PE and acute disease. Vitals stable. He was given aspirin, metoprolol, and lovenox in the ED. Patient hospitalized for ACS rule out. Hospital Course: Patient placed under observation, troponin trended negative. Patient have had extensive cardiac work-up including recent nuclear stress test, echocardiogram and CT angiogram which have all been unremarkable. I suspect her symptoms are secondary to GERD or anxiety. He also reported history of childhood asthma which could also contribute to his chest tightness. ACS ruled out. 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 Vital Signs/Physical Exam: Temp Pulse Resp BP Pulse Ox 97.7 F 62 16 103/61 98 09/11/22 08:00 09/11/22 08:00 09/11/22 08:00 09/11/22 08:00 09/11/22 08:00 General: Alert, In no apparent distress, Oriented x3 HEENT: Mucous membr. moist/pink Neck: Supple, JVD not distended Respiratory: Clear to auscultation bilaterally, Normal air movement Cardiovascular: No edema, Regular rate/rhythm, Normal S1 S2 Gastrointestinal: Normal bowel sounds, Soft and benign, Non-distended, No tenderness Musculoskeletal: No swelling Integumentary: No rashes Neurological: Normal strength at 5/5 x4 extr, Cranial nerves 3-12 intact Laboratory Data at Discharge: WBC 5.80 K/uL (4.3-10.9) 09/11/22 05:27 Hgb 17.1 g/dL (13.6-17.9) 09/11/22 05:27 Hct 49.3 % (39.6-49.0) H 09/11/22 05:27 Plt Count 141 K/uL (152-406) L 09/11/22 05:27 PT 12.7 SECONDS (9.5-12.5) H 09/10/22 16:11 INR 1.15 09/10/22 16:11 Sodium 135 mmol/L (136-145) L 09/11/22 05:27 Potassium 4.1 mmol/L (3.5-5.1) D 09/11/22 05:27 BUN 15 mg/dL (7-18) 09/11/22 05:27 Creatinine 1.05 mg/dL (0.55-1.3) 09/11/22 05:27 Glucose 93 mg/dL (74-106) 09/11/22 05:27 Magnesium 2.2 mg/dL (1.8-2.4) 09/10/22 16:11 Total Bilirubin 1.4 mg/dL (0.2-1.0) H 09/10/22 16:11 AST 29 U/L (15-37) 09/10/22 16:11 ALT 58 U/L (12-78) 09/10/22 16:11 Alkaline Phosphatase 68 U/L (45-117) 09/10/22 16:11 Triglycerides 23 mg/dL (<150) 09/10/22 20:35 Cholesterol 179 mg/dL (<200) 09/10/22 20:35 HDL Cholesterol 71 mg/dL (40-60) H 09/10/22 20:35 Cholesterol/HDL Ratio 2.52 09/10/22 20:35 Lipase 74 U/L (73-393) 09/10/22 16:11 Home Medications: Pantoprazole [Protonix Tab*] 40 mg PO ACB 01/11/22 Tizanidine HCl 4 mg PO BEDTIME PRN PRN 01/11/22 Tramadol HCl [Ultram] 50 mg PO Q12HP PRN 01/11/22 Followup: Marco Arevalo MD [Primary Care Provider] - 1-2 Weeks
--- NOTE | 2022-09-11 16:53 | EKG ---
Test Date: 2022-09-10 Test Time: 15:35:43 [employer] Supervisor: LML MEASUREMENT RESULTS: Intervals: Rate: 71 CO: 148 QRSD: 92 QT: 370 QTc: 402 [place]: P: 76 CO: 148 QRS: 85 T: 33 INTERPRETIVE STATEMENTS: Normal sinus rhythm Nonspecific ST and T wave abnormality Abnormal ECG Compared to ECG 07/18/2022 11:18:03 ST (T wave) deviation now present Right-axis deviation no longer present Electronically Signed On 09-11-22 16:52:56 CDT by Lefty Pandya
--- NOTE | 2022-09-13 18:44 | EKG ---
Test Date: 2022-09-10 Test Time: 15:36:22 Nuclear Medical Technologist: DAYANARA MEASUREMENT RESULTS: Intervals: Rate: 71 MA: 152 QRSD: 90 QT: 368 QTc: 399 [place]: P: 72 MA: 152 QRS: 85 T: 23 INTERPRETIVE STATEMENTS: Normal sinus rhythm Nonspecific ST abnormality Abnormal ECG Compared to ECG 09/10/2022 15:35:43 No significant changes Electronically Signed On 09-13-22 18:39:32 CDT by Lefty Pandya
== END 2022-09-11 11:30 | disposition home or self-care (01) ==
LOC: ER 15:02 → ERHOLD 18:20 → 4TH 19:48
PROVIDERS: ADMIT Internal Medicine; ATTEND Internal Medicine
DX: R07.9 Chest pain, unspecified (principal); K21.9 Gastro-esophageal reflux disease without esophagitis; M45.9 Ankylosing spondylitis of unspecified sites in spine; E87.6 Hypokalemia; Z20.822 Contact with and (suspected) exposure to COVID-19
CPT/HCPCS: 93005 ×2; 85025 ×2; 80048 ×2; 36415; 83735; 85610; 80061; 80076; 84484 ×3; 83690; 83880; 71045; 96372; 96374; 99285; 87811; J1650; G0378 ×3

== ENCOUNTER 2022-10-15 18:25 | Emergency (ER) | payer OTHER ==
--- OUTSIDE RECORDS SUMMARY | 2022-10-15 18:29 | XMS REPORT | Continuity of Care Document ---
:1990 Author Organization [facility] t Address [address] [place] [address] Care Team Providers Name Role Phone DEXTER GREWAL JR Primary Care Physician Unavailable DAVID PETTY Attending Clinician Unavailable David Spence Attending Clinician [phone] Pamela DEL VALLE MPH, Becca Fernando Attending Clinician [phone] Renetta Chaney Attending Clinician [phone] Only, Adc Test Attending Clinician Unavailable Moustapha Olivas MA Attending Clinician Unavailable [facility] Attending Clinician Unavailable Doctor Unassigned, [place] Attending Clinician Unavailable Kenyatta Duncan RN Attending Clinician Unavailable Kiel Prasad MD Attending Clinician Reyna Winchester MA Attending Clinician Unavailable Katja Pate Attending Clinician Jolene Lynn RN Attending Clinician Unavailable KIEL PRASAD Attending Clinician Unavailable ELVIS COVARRUBIAS Attending Clinician Unavailable Nurse, [facility] Attending Clinician Unavailable Elvis Covarrubias MD Attending Clinician ProviderJames [facility]gent Care Attending Clinician Unavailable Alcides Hunter PA-C Attending Clinician ALCIDES HUNTER Attending Clinician Unavailable Payers Payer Name Policy Type Policy Number Effective Date Expiration Date S ource Problems Condition Condition Condition Status Onset Resolution Last Treating Co mments Source Name Details Category Date Date Treatment Clinician Date Abnormal Abnormal Disease [facility] g of this note might be [...] Last [facility] spondyliti spondyliti 04-[facility] s of 00:00: t & [...] Active Last [facility] endocrine, endocrine, 00:00: t & Plan: [facility] and and g of this [...] Disease Active Last [facility] diarrhea diarrhea 6 Assessmen [place] es 00:00: t & Plan: Medical Formattin Center g of this note might [...] rs active active ity of problems problems [facility] Allergies, Adverse Reactions, Alerts Allergy Allergy Status Severity Reaction(s) Onset Inactive Treating Comm ents Source Name Type Date Date Clinician NO KNOWN Drug Active Univers ALLERGIE Class ity of S [facility] NO KNOWN Allergy Active [facility] Social History Social Habit Start Date Stop Date Quantity Comments Source History of Current smoker University of tobacco use [facility] History SDOH [facility] Alcohol Frequency Medical Center History SDOH [facility] Alcohol Std Medical Cente r Drinks History SDOH [facility] Alcohol Binge Medical Richard ter Alcohol intake 2022-08-20 2022-08-20 Ex-drinker [facility] 00:00:00 00:00:00 (finding) Medical Center Exposure to 2022-08-02 2022-08-12 Not sure [facility] SARS-CoV-2 00:00:00 09:58:00 [facility] (event) [place] Tobacco use and 2022-04-30 2022-04-[address] [facility] exposure 00:00:00 00:00:00 [facility] History SDOH 2022-04-30 2022-04-[address] [facility] Alcohol Comment 00:00:00 00:00:00 2018 Medical C enter Sex Assigned At [address] [facility] 00[facility]00:00 00:00:00 [facility] Smoking Status Start Date Stop Date Source Current every day 2022-04-30 00:00:[address] [facility] Medical smoker Center Ex-smoker 2021-03-14 00:00:00 2021-03-14 00:00:00 [facility] Medications Ordered Filled Start Stop Current Ordering Indication Dosage Frequency Signature Comments Components Source Medication Medication Date Date Medication? Clinician (SIG) Name Name traMADoL Yes 50mg Take [address] (ULTRAM) 50 9-30 by mouth. [place] es mg tablet 11:57: [address] adalimumab Yes 40mg Inject [address] (HUMIRA) 40 9-30 mg Lukes mg/0.8 mL 11:57: subcutaneo Me dical injection 54 usly. [place] TiZANidine Yes 4mg [id number] Take [address] (ZANAFLEX) 9-30 [id number] by mouth 3 [facility]ukes 4 MG 11:57: 3D (three) Medical capsule 54 times Center daily. mINOCYCLine Yes 135mg QD Take [address] (DYNACIN) 9-30 mg by Lukes 100 MG 11:57: mouth Medical tablet 54 daily. [place] emollient Yes Apply [facility] combination 9-30 topically. Betsy gibson no.32 11:57: Medical (EpiCeram) 54 [place] Radha traMADoL Yes 50mg Take [address] (ULTRAM) 50 9-30 by mouth. Liss[place] es mg tablet 11:57: Medical 54 [place] adalimumab Yes 40mg Inject [address] (HUMIRA) 40 9-30 mg Lukes mg/0.8 mL 11:57: subcutaneo Me dical injection 54 usly. [place] TiZANidine Yes 4mg [id number] Take [address] (ZANAFLEX) 9-30 [id number] by mouth 3 [facility]ukes 4 MG 11:57: 3D (three) Medical capsule 54 times Center daily. mINOCYCLine Yes 135mg QD Take [address] (DYNACIN) 9-30 mg by Lukes 100 MG 11:57: mouth Medical tablet 54 daily. [place] emollient Yes Apply [facility] combination 9-30 topically. Betsy gibson no.32 11:57: Medical (EpiCeram) 54 [place] Radha pantoprazol 0 2021- No 40mg Take [address] e 9- 0930 by mouth. Lukes (Protonix) 11:56: 00:00 Medica l 20 MG 06 :00 Center tablet pantoprazol 0 2021- No 40mg Take 40 mg CHI [...] 12.5mg Take 0.5 U nivers tartrate 25 -30 tablets by it y of mg tablet 00:00: [place] 00 the Medical morning Branch and 0.5 tablets in the evening. NaCl 0.9% Yes [id number] 250mL at 50 Un cristina (NS) IV - mL/hr, IV ity of infusion 14:45: Infusion, [place] 250 [place] 00 CONTINUOUS Medical , Starting Branch on Kay[place] 08/12/22 at 0945, Until Discontinu ed, Routine&lt ;br>To keep vein open
perflutren 2021- No [id number] 2mL 2 mL, IV Univers lipid 08-12 Push, ity of microsphere 14:30: 14:11 [place] dose, On Medical (DEFINITY) [place] Branch injection 2 08/12/22 at mL 0930, Routine metoprolol 2021- No [id number] 5mg 5 mg, Slow Univers (LOPRESSOR) 08-12 IV Push, ity of injection 5 14:30: 14:43 [place] :[place] dose, On [facility] Branch 08/12/22 at 0930, Routine atropine 2021- No [id number] 1mg 1 mg, Slow Univers injection 1 08-12 IV Push, ity of mg 14:30: 14:29 ONCE, 1 [place] 00 :00 dose, On Medical [place] Branch 08/12/22 at 0930, Routine Saline Yes [id number] 6mL 6 mL, Univer s Bubble 08-12 Injection, ity of Study 14:03: SEE-INSTRU [place] 55 CTIONS, Medical Starting Branch on [place] 08/12/22 at 0903, Until Discontinu ed, Routine DOBUTamine 2- No [id number] 5ug/kg/ 5 Univers (DOBUTREX) 08-12 09-23 min mcg/kg/min it y of 50 mg/50 mL 13:35: 02:39 , IV [place] IV infusion 36 :46 Infusion, Med ical [...] Dobutamine infusion. (see Adjunctive Therapy)<b r> tiZANidine 2-0 Yes Univers 4 mg tablet 8-22 ity of 00:00: Medical Branch traMADoL 50 2021-0 Yes Univer s mg tablet 8-22 ity of 00:00: [place] [facility] tiZANidine 2021-0 Yes Univers 4 mg tablet 8-22 ity of 00:00: [place] [facility] traMADoL 50 2021-0 Yes Univer s mg tablet 8-22 ity of 00:00: [place] [facility] tiZANidine 2021-0 Yes Univers 4 mg tablet 8-22 ity of 00:00: [place] [facility] traMADoL 50 2021-0 Yes Univer s mg tablet 8-22 ity of 00:00: [place] [facility] tiZANidine 2-0 Yes Univers 4 mg tablet 8-22 ity of 00:00: [place] [facility] traMADoL 50 2021-0 Yes Univer s mg tablet 8-22 ity of 00:00: [place] [facility] tiZANidine 2-0 Yes Univers 4 mg tablet 8-22 ity of 00:00: [place] [facility] traMADoL 50 2-0 Yes Univer s mg tablet 8-22 ity of 00:00: Medical Branch tiZANidine 2-0 Yes Univers 4 mg tablet 8-22 ity of 00:00: [place] [facility] traMADoL 50 2-0 Yes Univer s mg tablet 8-22 ity of 00:00: [place] [facility] tiZANidine 2-0 Yes Univers 4 mg tablet 8-22 ity of 00:00: [place] [facility] traMADoL 50 2-0 Yes Univer s mg tablet 8-22 ity of 00:00: [place] [facility] tiZANidine 2-0 Yes Univers 4 mg tablet 8-22 ity of 00:00: [place] [facility] traMADoL 50 2021-0 Yes Univer s mg tablet 07-12 ity of 00:00: [place] [facility] tiZANidine 2021-0 Yes Univers 4 mg tablet 07-12 ity of 00:00: [place] [facility] traMADoL 50 2021-0 Yes Univer s mg tablet 07-12 ity of 00:00: [place] [facility] tiZANidine 2021-0 Yes Univers 4 mg tablet 07-12 ity of 00:00: [place] [facility] traMADoL 50 2021-0 Yes Univer s mg tablet 07-12 ity of 00:00: [place] [facility] pantoprazol 2021-0 Yes TAKE 1 Univ ers e 40 mg EC 7-28 TABLET BY ity of tablet 00:00: MOUTH [place] 00 DAILY 30 Medical MINUTES Branch BEFORE BREAKFAST OR FIRST MEAL pantoprazol 0 Yes TAKE 1 Univ ers e 40 mg EC 7-28 TABLET BY ity of tablet 00:00: MOUTH [place] DAILY 30 Medical MINUTES Branch BEFORE BREAKFAST OR FIRST MEAL pantoprazol Yes TAKE 1 Univ ers e 40 mg EC 7-28 TABLET BY ity of tablet 00:00: MOUTH [place] DAILY 30 Medical MINUTES Branch BEFORE BREAKFAST OR FIRST MEAL pantoprazol 0 Yes TAKE 1 Univ ers e 40 mg EC 7-28 TABLET BY ity of tablet 00:00: MOUTH [place] 00 DAILY 30 Medical MINUTES Branch BEFORE BREAKFAST OR FIRST MEAL pantoprazol 2021-0 Yes TAKE 1 Univ ers e 40 mg EC 7-28 TABLET BY ity of tablet 00:00: MOUTH [place] DAILY 30 Medical MINUTES Branch BEFORE BREAKFAST OR FIRST MEAL pantoprazol 2021-0 Yes TAKE [address] [facility] e 7-28 TABLET BY Lukes (PROTONIX) 00:00: MOUTH Medica l 40 MG 00 DAILY 30 Center tablet MINUTES BEFORE BREAKFAST OR FIRST MEAL pantoprazol Yes TAKE 1 Univ ers e 40 mg EC 7-28 TABLET BY ity of tablet 00:00: MOUTH 00 DAILY 30 Medical MINUTES Branch BEFORE BREAKFAST OR FIRST MEAL pantoprazol 2021-0 Yes TAKE 1 Univ ers e 40 mg EC 7-28 TABLET BY ity of tablet 00:00: MOUTH 00 DAILY 30 Medical MINUTES Branch BEFORE BREAKFAST OR FIRST MEAL pantoprazol 2021-0 Yes TAKE 1 Univ ers e 40 [...] BREAKFAST OR FIRST MEAL TiZANidine Yes 4mg [id number] Take [address] (ZANAFLEX) 6-10 [id number] by mouth 3 Lukes 4 MG 12:13: 3D (three) Medical capsule 34 times Center daily. mINOCYCLine Yes 135mg QD Take [address] (DYNACIN) 6-10 mg by Lukes 100 MG 12:13: mouth Medical tablet 34 daily. [place] emollient Yes Apply [facility] combination 6-10 topically. Betsy kes no.32 12:13: Medical (EpiCeram) 34 Center Radha pantoprazol Yes 40mg Take [address] e 6-10 by mouth. Lukes (Protonix) 12:10: Medical 20 MG 13 [place] tablet traMADoL Yes 50mg Take [address] (ULTRAM) 50 6-10 by mouth. [place] es mg tablet 12:10: Medical 13 [place] adalimumab Yes 40mg Inject [address] (HUMIRA) 40 6-10 mg Lukes mg/0.8 mL 12:10: subcutaneo Me dical injection 13 usly. [place] Vital Signs Vital Name Observation Time Observation Value Comments Source Systolic blood 2022-08-12 14:52:00 140 mm[Hg] Univer sity [facility] Diastolic blood 2022-08-12 14:52:00 80 mm[facility]Hg[facility] 2022-08-12 14:52:00 102 /min Universi [facility] Respiratory rate 2022-08-12 14:30:00 20 /min Univ ersity [facility] Body height 2022-08-12 13:30:00 177.8 cm [address] ty of [facility] Body weight 2022-08-12 13:30:00 71.[address] ty of [facility] BMI 2022-08-12 13:30:00 22.67 kg/m2 Universi ty of [facility] Systolic blood 2022-07-14 15:00:00 127 mm[Hg] Univer sity of pressure [facility] Diastolic blood 2022-07-14 15:00:00 81 mm[Hg] Unive rsity of [facility] Heart rate 2022-07-14 15:00:00 84 /min Universi ty of [facility] Body temperature 2022-07-14 15:00:00 36.78 Shayy [facility] Respiratory rate 2022-07-14 15:00:00 18 /min [facility] [place] [facility] Body height 2022-07-14 15:00:00 177.8 cm Universi ty [facility] Body weight 2022-07-14 15:00:00 72.[address] [facility] BMI 2022-07-14 15:00:00 22.91 kg/m2 Universi ty [facility] Oxygen saturation in 2022-07-14 15:00:00 99 /min [facility] Arterial blood by [facility] Pulse oximetry Branch Systolic blood 2022-08-20 11:40:00 131 mm[Hg] [facility] Diastolic blood 2022-08-20 11:40:00 81 mm[Hg] [facility] S [facility] Heart rate 2022-08-20 11:40:00 71 /min [facility] Body temperature 2022-08-20 11:40:00 36.72 Shayy [facility] Body height 2022-08-20 11:40:00 177.8 cm [facility] Body weight 2022-08-20 11:40:00 72.122 kg [facility] BMI 2022-08-20 11:40:00 22.81 kg/m2 [facility] Oxygen saturation in 2022-08-20 11:40:00 99 /min [facility] Arterial blood by Medical Ce nter Pulse oximetry Body temperature 2022-06-01 13:52:00 36.28 Shayy [facility] Body height 2022-06-01 13:52:00 177.8 cm [facility] Body weight 2022-06-01 13:52:00 72.258 kg [facility] BMI 2022-06-01 13:52:00 22.86 kg/m2 [facility] Systolic blood 2022-04-30 11:58:00 129 mm[Hg] [facility] Diastolic blood 2022-04-30 11:58:00 79 mm[Hg] [facility] Heart rate 2022-04-30 11:58:00 76 /min [facility] Oxygen saturation in 2022-04-30 11:58:00 98 /min [facility] Arterial blood by Medical Ce nter Pulse oximetry Procedures Procedure Date / Time Performing Clinician Source Performed HEPATIC FUNCTION PANEL 2022-08-20 12:26:00 Renetta White [facility] CBC W/PLT COUNT & AUTO 2022-08-20 12:26:00 Renetta White [facility] CBC W/PLT COUNT & AUTO 2022-08-20 12:26:00 Renetta White [facility] BASIC METABOLIC PANEL 2022-08-20 12:26:00 Renetta White [facility] COMPLETE ECHOCARDIOGRAM 2022-08-12 15:08:00 David Petty [facility] DOBUTAMINE STRESS TEST W Medical [place] CONTRAST DOBUTAMINE STRESS ECHO 2022-08-12 05:01:00 Doctor [facility]igned, [facility] [place] [facility] HEPATIC FUNCTION PANEL 2022-06-01 14:28:00 Kiel Prasad [facility] CBC W/PLT COUNT & AUTO 2022-06-01 14:28:00 Kiel Prasad [facility] CBC W/PLT COUNT & AUTO 2022-06-01 14:28:00 Kiel Prasad [facility] CELIAC DISEASE PANEL 2022-04-30 13:14:00 LucyKiel leahy [facility] INTERPRETATION 2022-04-30 13:14:00 LucyKiel leahy [facility] TISSUE TRANSGLUTAMINASE 2022-04-30 13:14:00 LucyKiel leahy [facility] ENDOMYSIAL AB SCR 2022-04-30 13:14:00 LucyKiel leahy [facility] ENDOMYSIAL AB TITER 2022-04-30 13:14:00 LucyKiel leahy [facility] IGA 2022-04-30 13:14:00 LucyKiel leahy [facility] TISSUE TRANSGLUTAMINASE 2022-04-30 13:14:00 LucyKiel leahy [facility] COMPREHENSIVE METABOLIC 2022-04-30 12:59:00 LucyKiel [facility] BILIRUBIN, DIRECT 2022-04-30 12:59:00 LucyKiel leahy [facility] CBC W/PLT COUNT & AUTO 2022-04-30 12:59:00 LucyKiel leahy [facility] HEPATITIS A ANTIBODY, IGG 2022-04-30 12:59:00 LucyKiel leahy [facility] HEPATITIS B SURFACE 2022-04-30 12:59:00 LucyKiel leahy [facility] ANTIBODY Center IRON, TIBC, % SAT. 2022-04-30 12:59:00 LucyKiel leahy [facility] (WITHOUT FERRITIN) Center FERRITIN 2022-04-30 12:59:00 LucyKiel leahy [facility] ECWNA-9-[id number]\, 2022-04-30 12:59:00 LucyKiel leahy [facility] SERUM Center CERULOPLASMIN 2022-04-30 12:59:00 LucyKiel leahy [facility] ANTI-NUCLEAR ANTIBODY 2022-04-30 12:59:00 LucyKiel leahy [facility] (GLYNN) Center ACTIN (SMOOTH MUSCLE) 2022-04-30 12:59:00 Kiel Prasad [facility] ANTIBODY, IGG Center MITOCHONDRIA M2 ANTIBODY 2022-04-30 12:59:00 Kiel Prasad [facility] (IGG) Center IMMUNOGLOBULIN G (IGG) 2022-04-30 12:59:00 Kiel Prasad [facility] CBC W/PLT COUNT & AUTO 2022-04-30 12:59:00 Kiel Prasad [facility] DIFFERENTIAL Center Plan of Care Planned [...] [facility] 00:00:00 (12+) [code = [facility] DEPRESSION SCREENING (12+)] Future Scheduled 2021-11-[address] [facility] Test 00:00:00 (12+) [code = [facility] DEPRESSION SCREENING (12+)] Future Scheduled 2021-11-[address] [facility] Test 00:00:00 (12+) [code = [facility] DEPRESSION SCREENING (12+)] Future Scheduled [address] [facility] Test 00:00:00 (procedure) [code = [facility] [id number]] Future Scheduled [address] [facility] Test 00:00:00 (procedure) [code = [facility] [id number]] Future Scheduled [address] [facility] Test 00:00:00 (procedure) [code = [facility] [id number]] Future Scheduled 2009 DTAP/TDAP/TD VACCINES CH I [...] HEPATITIS C Medical Center SCREENING] Future Scheduled [address] [facility] Test 00:00:00 Counseling and Medical Cente r Screening (12+) [code = Tobacco Cessation Counseling and Screening (12+)] Future Scheduled [address] [...] 2022-08-23 2022-08-23 Telephone Jovanny, UNIVERSIT [id number] Univers 00:00:00 00:00:00 [facility] [id number] i ty of [facility] [id number] [id number] [address] 2022-08-20 2022-08-20 Office KatieluzandrewAgustínse Kassie [facility] [id number] [facility] 11:30:00 12:00:00 Visit [facility] 2022-08-20 2022-08-20 Office Becca Medrano [facility] [id number] [facility] 11:30:00 12:00:00 Visit [facility] 2022-08-18 2022-08-18 Telephone Jovanny, UNIVERSIT [id number] Univers 00:00:00 00:00:00 [facility] [id number] i ty of [facility] [id number] [id number] [address] 2022-08-12 2022-08-12 Outpatient R JOVANNY, [facility] [id number] Univers 10:05:44 23:59:[address] [facility] [place] [facility] 2022-08-12 2022-08-12 Hospital Jovanny, UNIVERSIT [id number] Univers 07:43:41 10:04:00 Encounter [facility] [id number] ity of [facility] [id number] [id number] [address] 2022-08-09 2022-08-09 Laboratory Only, Adc Test [facility] 1.2.840. [id number] Univers 10:30:00 10:45:00 Only Jovanny, David Tinoco [place] 350.1.13 .10 ity of [place] [id number] [place] [address] Branch 2022-08-09 2022-08-09 Outpatient R JOVANNY, [facility] [id number] Univers 10:30:00 10:30:00 DAVID ity [facility] 2022-08-02 2022-08-02 Telephone Jovanny, UNIVERSIT [id number] [id number] Univers 00:00:00 00:00:00 [facility] [id number] i ty of [facility] [id number] [id number] [address] 2022-07-22 2022-07-22 Telephone Jovanny, UNIVERSIT [id number] Univers 00:00:00 00:00:00 [facility] [id number] i ty of [facility] [id number] [id number] [address] 2022-07-21 2022-07-21 Telephone Jovanny, UNIVERSIT 1.2.840.114 [id number] Univers 00:00:00 00:00:00 [facility] 350.1.13.10 i ty of [facility] [id number] [id number] [address] 2022-07-20 2022-07-20 Abstract Deisy [facility] [id number] 00:00:00 00:00:00 [facility] 2022-07-20 2022-07-20 Abstract Deisy [facility] [id number] 00:00:00 00:00:00 [facility] 2022-07-19 2022-07-19 Telephone Jovanny, UNIVERSIT 1.2.840.114 [id number] Univers 00:00:00 00:00:00 [facility] 350.1.13.10 i ty of [facility] [id number] [id number] [facility] 059 Branch 2022-07-19 2022-07-19 Abstract Deisy [facility] [id number] 00:00:00 00:00:00 [facility] 2022-07-19 2022-07-19 Abstract Deisy [facility] [id number] 00:00:00 00:00:00 [facility] 2022-07-14 2022-07-14 Veterinary Milk Specialist [facility] UNIVERSIT 1.2.840.114 [id number] Univers 10:45:00 11:00:00 [facility] 350.1.13 .10 ity of [facility] 4[place]2.[place].2.[place] [id number] [facility] 316 Branch 2022-07-14 2022-07-14 Outpatient R [facility], [facility] [id number] Univers 10:45:00 10:45:00 [facility] 2022-07-14 2022-07-14 Outpatient R JOVANNY, [facility] [id number] Univers 10:45:00 10:45:00 [facility] 2022-07-14 2022-07-14 Office Jovanny, [facility] [id number] Univers 10:00:00 10:30:00 Visit [facility] 350.1.13.10 i ty of [facility] [id number] [id number] [facility] 059 Branch 2022-07-14 2022-07-14 Orders Doctor ALCIDES 1.2.840.114 [id number] Univers 00:00:00 00:00:00 Only Unassigned, THUY 350.1.13.10 ity of [facility] 4.2.7.2.686 [place] as [id number] [facility] 009 Branch 2022-06-02 2022-06-02 Telephone [place] [facility] [id number] 00:00:00 00:00:00 [facility] 2022-06-02 2022-06-02 Telephone [place] [facility] [id number] 00:00:00 00:00:00 [facility] 2022-06-01 2022-06-01 Office Kiel Prasad [facility] [id number] 13:30:00 14:00:[address] [facility] 2022-06-01 2022-06-01 Office BRITTANIE Lucy, Kiel [facility] [id number] 13:30:00 14:00:[address] [facility] 2022-05-31 2022-05-31 Telephone Ranulfo [facility] [id number] 00:00:00 00:00:00 [facility] 2022-05-31 2022-05-31 Telephone Ranulfo [facility] [id number] 00:00:00 00:00:00 [facility] 2022-05-13 2022-05-13 Telephone Pradip [facility] [id number] 00:00:00 00:00:00 [facility] 2022-05-13 2022-05-13 Telephone Pradip, [facility] [id number] 00:00:00 00:00:00 [facility] 2022-05-05 2022-05-05 Bere Lynn [facility] [id number] 00:00[facility]00 00:00:00 [facility] 2022-05-05 2022-05-05 Bere Lynn [facility] [id number] 00:00[facility]00 00:00:00 [facility] 2022-04-30 2022-04-30 Office Maria M Prasadan [facility] [id number] 12:00:00 13:00:[address] [facility] 2022-04-30 2022-04-30 Office Kiel Gamboa [facility] [id number] 12:00:00 13:00:00 Visit Elio [facility] 2022-04-30 2022-04-30 Outpatient KIEL GAMBOA [facility] [id number] [facility] 00:00:00 00:00:00 2022-04-30 2022-04-30 Documentat [facility] [id number] 00:00:00 00:00:00 cipriano Bains [facility] 2022-04-30 2022-04-30 Documentat [facility] [id number] 00:00:00 00:00:00 ion Kenyatta [facility] 2022-01-09 2022-01-09 Outpatient [facility] [id number] [facility] 13:20:00 13:35:25 [facility] 2022-01-09 2022-01-09 Nurse Nurse, [facility] [id number] Univers 13:20:00 13:35:25 Visit Satish [facility] [id number] ity of [place] [id number] Holger as LIZANDRO?BLEA [phone] [facility] [address] [facility] OFFICE BUILDING 2021-03-14 2021-03-14 Urgent Provider, [facility] [id number] Univers 10:21:38 10:41:38 Care Elsa [facility] [id number] ity of [place] [id number] Holger as Professio [phone] [address] Office Building One 2021-03-14 2021-03-14 Outpatient [facility] [id number] Univers 10:20:00 10:20:00 [facility] Results Test Description Test Time Test Comments [...] (test code = 347) 47 U/L 6-55 Manhole [facility] [id number] 13:28:45 Test Item Value Reference Range Interpretation [...] De scription 1092) sq m Result G1 Cherelle l or high >=90 G2 Mildly decreased 60-89 G3a Mildl y to moderately 45-5 9 G3b Moderately to s everely 30-44 G4 Severl y decreased 15-29 G5 Kidney failure <15Reported eGF R is based on the CKD-EPI 2020 equation that d oes not use a race coefficientEsti mated GFR is not as accur ate as Creatinine Shahla owen in predicting glom erular filtration rate . Estimated GFR is not appl icable for dialysis patien ts Manhole Builder ID - MITCHCBC W/PLT COUNT & AUTO [id number] 12:59:37 Test Item Value Reference Range Interpretation [...] (test code = 2801) Echocardiogram dobutamine stress [id number] 16:30:01 Test Item Value Reference Range Interpretation Comments Height (test code = in 7103617188) Weight (test code = lbs 3992087753) Systolic BP (test mmHg code = 2016980232) Diastolic BP (test mmHg code = 6287697096) Heart Rate (test bpm code = 3443304243) BSA (test code = 1.89 m2 8443582847) Radiology Study observation (narrative) (test code = 68893-5) DAVID (test code = Table formatting from [...] was performed. Patient exhibited sinus bradycardia. -Vijay L. Lopez R.N.Resting ECGNormal sinus rhythm.Stress ECGSinus tachycardia. No significant ST depression.Echo Post StressThe post-stress echo shows appropriate increased thickness to all myocardial segments, increased ejection fraction 75-80% and no wall motion abnormalities noted.Study ImpressionAdequate hemodynamic response, adequate inotropic response, adequate chronotropic response and negative stress echocardiography study for inducible ischemia. [facility] [id number] 17:03:09 Test Item Value Reference Range Interpretation [...] Specimen slightly (test code = 347) hemolyzed Manhole Builder ID - BSCBC W/PLT COUNT & AUTO [id number] 16:48:26 Test Item Value Reference Range Interpretation [...] method.Test performed by IFA method.HEPATITIS A ANTIBODY, [id number] 15:39:02 Test Item Value Reference Range Interpretation Comments HEPATITIS A IGG ANTIBODY (BEAKER) Nonreactive Nonreactive (test code = 2797) Manhole Builder ID - BSHEPATITIS B SURFACE [id number] 15:38:57 Test Item Value Reference Range Interpretation Comments HEPATITIS B SURFACE ANTIBODY 694.4 mIU/mL <8.0 H (BEAKER) (test code = 647) Manhole Builder ID - [id number] 15:18:35 Test Item Value Reference Range Interpretation Comments ALPHA-1 ANTITRYPSIN (BEAKER) 133.20 mg/dL 90.00-200.00 (test code = 502) Manhole Builder ID - LEOBARDO MOperator ID - BSIMMUNOGLOBULIN G (IGG)2022-04-30 15:18:20 Test Item Value Reference Range Interpretation Comments IMMUNOGLOBULIN G (IGG) 1176 mg/dL See_Comment [Aut omated message] (BEAKER) (test code = The sy stem which 427) generated this result transmit ricarda reference range : 540-1,822. The reference range was not used to interpret this result as normal/abnormal . Manhole Builder ID - [id number] 15:03:13 Test Item Value Reference Range Interpretation Comments FERRITIN (BEAKER) (test code = 151.93 ng/mL 5.00-275.00 361) Manhole Builder ID - BSCOMPREHENSIVE METABOLIC [id number] 14:45:00 Test Item Value Reference Range Interpretation [...] 1092) DATA TO CALCULA TE ESTIMATED GFR. Manhole Builder ID - LEOBARDO CARABALLO, [id number] 14:42:46 Test Item Value Reference Range Interpretation Comments BILIRUBIN DIRECT (BEAKER) (test 0.3 mg/dL 0.1-0.5 code = 706) Manhole Builder ID - LEOBARDO BARNESON, TIBC, % SAT. (WITHOUT FERRITIN)2022-04-30 14:42:46 Test Item Value Reference Range Interpretation Comments IRON (BEAKER) (test code = 547) 95.0 ug/dL 40.0-160.0 TOTAL IRON BINDING CAPACITY 315 ug/dL 250-450 (BEAKER) (test code = 769) IRON % SATURATION (2) (BEAKER) 30 % 20-55 (test code = 0318) Manhole Builder ID Dalia BOOTH MCBC W/PLT COUNT & AUTO [id number] 14:28:04 Test Item Value Reference Range Interpretation [...] % 0-1 PERCENT (BEAKER) (test code = 0251)
--- NOTE | 2022-10-15 19:32 | ER ---
Nurse's Notes [facility] Name: John Hoffmann Age: 32 yrs Sex: Male : 1990 Arrival Date: 10/15/2022 Time: 18:30 Bed 12 Private MD: Diagnosis: Low back pain Presentation: 10/15 18:47 Chief complaint: Low back pain, worse after receiving steroid injection in back by Dr. jackie Randolph 10/08. Started taking Taltz 10/07. Coronavirus screen: At this time, the client does not indicate any symptoms associated with coronavirus-19. Ebola Screen: No symptoms or risks identified at this time. Initial Sepsis Screen: Does the patient meet any 2 criteria? No. Patient's initial sepsis screen is negative. Does the patient have a suspected source of infection? No. Patient's initial sepsis screen is negative. Risk Assessment: Do you want to hurt yourself or someone else? Patient reports no desire to harm self or others. Onset of symptoms was October 08, 2022. 18:47 Method Of Arrival: Ambulatory 18:47 Acuity: FRENCH 4 hb Triage Assessment: 18:49 General: Appears in no apparent distress. Behavior is calm, cooperative. Pain: Pain hb currently is 8 out of 10 on a pain scale. Neuro: Level of Consciousness is awake, alert, obeys commands, Oriented to person, place, time, situation. Cardiovascular: Patient's skin is warm and dry. Respiratory: Respiratory effort is even, unlabored, Respiratory pattern is regular, symmetrical. Historical: - Allergies: 18:49 No Known Allergies; hb - PMHx: 18:49 chronic back pain; GERD; hb - PSHx: 18:49 Appendectomy; Cholecystectomy; hb - Immunization history:: Adult Immunizations up to date. - Social history:: Smoking status: Patient denies any tobacco usage or history of. Screenin:31 Abuse screen: Denies threats or abuse. Denies injuries from another. Nutritional tw5 screening: No deficits noted. Tuberculosis screening: No symptoms or risk factors identified. Fall Risk None identified. Assessment: 19:31 General: "I dont think I want the CT Scan. I would rather just wait until I can get an tw5 MRI done. So it is okay if I just leave." Message relayed to provider. . Neuro: No deficits noted. Derm: No deficits noted. Vital Signs: 18:47 BP 146 / 99; Pulse 79; Resp 16; Temp 98.7; Pulse Ox 100% on R/A; Weight 72.57 kg; hb Height 5 ft. 10 in. (177.80 cm); Pain 8/10; 18:47 Body Mass Index 22.96 (72.57 kg, 177.80 cm) ED Course: 18:30 Patient arrived in ED. jj6 18:31 Chris Ascencio PA is PHCP. cp 18:31 Chris Mcgarry MD is Attending Physician. cp 18:49 Triage completed. hb 18:49 Arm band placed on. hb 19:22 Danielle Roblero is Primary Nurse. tw5 19:39 Patient has correct armband on for positive identification. tw5 19:39 No provider procedures requiring assistance completed. Patient did not have IV access tw5 during this emergency room visit. Administered Medications: No medications were administered Medication: 19:31 VIS not applicable for this client. tw5 Outcome: 19:32 Discharge ordered by MD. cp 19:39 Discharged to home ambulatory. tw5 19:39 Condition: good 19:39 Discharge instructions given to patient, Instructed on discharge instructions, follow up and referral plans. Demonstrated understanding of instructions, follow-up care. 19:39 Patient left the ED. tw5 Signatures: Chris Ascencio PA PA cp Baxter, Heather, RN RN Danielle Roblero tw5 Amy Bennett jj6
--- NOTE | 2022-10-15 19:32 | EDPHYS ---
Physician Documentation [facility] Name: John Hoffmann Age: 32 yrs Sex: Male : 1990 Arrival Date: 10/15/2022 Time: 18:30 Bed 12 Private MD: Chris Massey HPI: 10/15 19:00 This 32 yrs old Male presents to ER via Ambulatory with complaints of Back Pain. cp 19:00 The patient presents with pain that is chronic, became worse over past several days cp after receiving lumbar injections. The symptoms are located in the low back. Associated signs and symptoms: The patient has no apparent associated signs or symptoms. Patient denies fever, denies bowel and/or bladder incontinence, denies saddle anesthesia. Historical: - Allergies: 18:49 No Known Allergies; hb - PMHx: 18:49 chronic back pain; GERD; hb - PSHx: 18:49 Appendectomy; Cholecystectomy; hb - Immunization history:: Adult Immunizations up to date. - Social history:: Smoking status: Patient denies any tobacco usage or history of. ROS: 19:05 Constitutional: Negative for body aches, chills, fever, poor PO intake. cp 19:05 Eyes: Negative for injury, pain, redness, and discharge. cp 19:05 ENT: Negative for drainage from ear(s), ear pain, sore throat, difficulty swallowing, difficulty handling secretions. 19:05 Cardiovascular: Negative for chest pain, edema, palpitations. 19:05 Respiratory: Negative for cough, shortness of breath, wheezing. 19:05 Abdomen/GI: Negative for abdominal pain, nausea, vomiting, and diarrhea, bowel incontinence. 19:05 Back: Positive for pain at rest, pain with movement, of the low back. 19:05 : Negative for urinary symptoms, difficulty urinating, bladder incontinence, testicular pain 19:05 Skin: Negative for cellulitis, rash. 19:05 Neuro: Negative for altered mental status, dizziness, headache, numbness, weakness, saddle anesthesia. 19:05 All other systems are negative. Exam: 19:10 Constitutional: The patient appears in no acute distress, alert, awake, non-toxic, well cp developed, well nourished. 19:10 Head/Face: Normocephalic, atraumatic. cp 19:10 Chest/axilla: Inspection: normal. 19:10 Cardiovascular: Rate: normal, Rhythm: regular. 19:10 Respiratory: the patient does not display signs of respiratory distress, Respirations: normal, no use of accessory muscles, no retractions, labored breathing, is not present, Breath sounds: are clear throughout, no decreased breath sounds. 19:10 Abdomen/GI: Inspection: abdomen appears normal, Palpation: abdomen is soft and non-tender, in all quadrants. 19:10 Back: pain, that is moderate, of the lumbar area, ROM is painful, with all movement, Straight leg raises: of both lower extremities does not illicit pain. 19:10 Skin: lumbar injection site inspected and appears with no erythema, swelling and no drainage from puncture site. 19:10 Neuro: Orientation: is normal, Mentation: is normal, Motor: moves all fours, strength is normal, Sensation: is normal, Gait: is steady, at a normal pace, without difficulty, Deep tendon reflexes are 2+ (normal) in the right patellar, right Achilles, left patellar and left Achilles. Vital Signs: 18:47 BP 146 / 99; Pulse 79; Resp 16; Temp 98.7; Pulse Ox 100% on R/A; Weight 72.57 kg; hb Height 5 ft. 10 in. (177.80 cm); Pain 8/10; 18:47 Body Mass Index 22.96 (72.57 kg, 177.80 cm) hb MDM: 18:50 Patient medically screened. cp 19:00 Differential diagnosis: ruptured disc, cauda equina, spinal abscess, cellulitis, spinal cp stenosis. 19:32 Data reviewed: vital signs, nurses notes. 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 ED course: VS noted. Patient refuses any blood work and/or radiology studies at this time. Patient informed he can return to ED for reevaluation at any time. Administered Medications: No medications were administered Disposition Summary: 10/15/22 19:32 Discharge Ordered Location: Home cp Problem: chronic cp Symptoms: are unchanged cp Condition: Stable cp Diagnosis - Low back pain cp Followup: cp - With: Private Physician - When: 2 - 3 days - Reason: Recheck today's complaints Discharge Instructions: - Discharge Summary Sheet cp - Chronic Back Pain cp - Heat Therapy cp - Back Exercises cp Forms: - Medication Reconciliation Form cp - Thank You Letter cp - Antibiotic Education cp - Prescription Opioid Use cp Signatures: Chris Ascencio PA PA cp Mara Horowitz RN RN Corrections: (The following items were deleted from the chart) 10/16 15:43 10/15 19:10 Constitutional: The patient appears in no acute distress, alert, awake, cp non-toxic, well developed, cp
[2022-10-15 19:44] VITALS: BP 146/99; TEMP 98.7; O2SAT 100
== END 2022-10-15 19:39 | disposition home or self-care (01) ==
LOC: ER 18:25
DX: M54.50 Low back pain, unspecified (principal)
CPT/HCPCS: 99281

== ENCOUNTER 2022-12-06 16:56 | Emergency (ER) | payer OTHER ==
--- OUTSIDE RECORDS SUMMARY | 2022-12-06 17:01 | XMS REPORT | Continuity of Care Document ---
:1990 Author Organization [facility] t Address [address] [place] [address] Care Team Providers Name Role Phone MARCO AREVALO JR Primary Care Physician Unavailable Marco Arevalo Attending Clinician Unavailable DAVID PETTY Attending Clinician Unavailable David Spence Attending Clinician [phone] Pamela DEL VALLE MPH, Becca Fernando Attending Clinician [phone] Renetta Chaney Attending Clinician [phone] Only, Adc Test Attending Clinician Unavailable Moustapha Olivas MA Attending Clinician Unavailable [facility] Attending Clinician Unavailable Doctor Unassigned, [place] Attending Clinician Unavailable Kenyatta Duncan RN Attending Clinician Unavailable Kiel Prasad MD Attending Clinician Reyna Winchester MA Attending Clinician Unavailable Katja Pate Attending Clinician Jolene Lynn RN Attending Clinician Unavailable KIEL PRASAD Attending Clinician Unavailable ELVIS COVARRUBISA Attending Clinician Unavailable Nurse, [facility] Attending Clinician Unavailable Elvis Covarrubias MD Attending Clinician Provider, [facility] Attending Clinician Unavailable Alcides Hunter PA-C Attending Clinician ALCIDES HUNTER Attending Clinician Unavailable Payers Payer Name Policy Type Policy Number Effective Date Expiration Date S johny Problems Condition Condition Condition Status Onset Resolution Last Treating Co mments Source Name Details Category Date Date Treatment Clinician Date Abnormal Abnormal Disease Active Last [facility]10 [facility] enzymes enzymes 00:00: t & Plan: Medic al [facility] g of this note [...] Active Last [facility] spondyliti spondyliti 6- [facility] of 00:00: t & [...] Disease Active Last [facility] for for 6-10 [facility] endocrine, endocrine, 00:00: t & Plan: Medical [...] Disease Active Last [facility] diarrhea diarrhea 6-10 Assessmen [facility]y es 00:00: t & Plan: Medical 00 [facility] g of this note might be [...] rs active active ity of problems problems [facility] [id number] Anxiety Problem [facility] [id number] Left Problem Commo n [id number] testicular Spiri t pain [facility] [id number] Intractabl Problem Co mmon e Spirit vomiting, - [facility] presence St of nausea [facility] not Medical specified, Center unspecifie d vomiting type [id number] Painful Problem Commo n bladder Spirit spasm [facility] [id number] Dysfunctio Problem Co mmon nal Spirit voiding of - [facility] urine [facility] [id number] [place], [place] [address] joint, Spirit knee, - [facility] right [facility] [id number] Injury to Problem Com mon penis, Spirit initial - [facility] encounter [facility] [id number] Penile Problem Common pain [facility] [id number] Other Problem Common chronic [facility] pain [facility] [id number] [place], [place] [address] joint, Spirit knee, left - [facility] [id number] Lower Problem Common abdominal [facility] pain [facility] [id number] Acute Problem Common right [facility] flank pain [facility] [id number] Constipati Problem Com mon on, Spirit unspecifie - CHI d constipati 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 - [facility], [facility] [id number] Childhood Problem Com mon asthma, Spirit unspecifie - [facility]I d asthma [facility] unspecifie Medica l d whether Center complicate d, unspecifie d whether persistent [id number] Cough Problem Common [facility] Allergies, Adverse Reactions, Alerts Allergy Allergy Status Severity Reaction(s) Onset Inactive Treating Comm ents Source Name Type Date Date Clinician NO KNOWN Drug Active Univers ALLERGIE Class ity of S [facility] NO KNOWN Allergy Active [facility] Social History Social Habit Start Date Stop Date Quantity Comments Source History SDOH [facility] Alcohol Frequency Medical Center History of [facility] - Tobacco Use [facility] History SDOH [facility] Alcohol Std Medical Cente r Drinks History SDOH [facility] Alcohol Binge Medical Richard ter Alcohol intake 2022-08-20 2022-08-20 Ex-drinker [facility] 00:00:00 00:00:00 (finding) Medical Center Exposure to 2022-08-02 2022-08-12 Not sure [facility] SARS-CoV-2 00:00:00 09:58:00 [facility] (event) Metter Tobacco use and 2022-04-30 2022-04-[address] [facility] exposure 00:00:00 00:00:00 Medical Center History SDOH 2022-04-30 2022-04-[address] [facility] Alcohol Comment 00:00:00 00:00:00 2018 Medical C enter Sex Assigned At [address] [facility] 00:00:00 00:00:00 Medical Center Smoking Status Start Date Stop Date Source Never Smoker [facility] - [facility] Ce nter Current every day 2022-04-30 00:00:[address] [facility] smoker Center Ex-smoker 2021-03-14 00:00:00 2021-03-14 00:00:00 [facility] Medications Ordered Filled Start Stop Current Ordering Indication Dosage Frequency Signature Comments Components Source Medication Medication Date Date Medication? Clinician (SIG) Name Name traMADoL Yes 50mg Take [address] (ULTRAM) 50 9-30 by mouth. Lissy es mg tablet 11:57: Medical 54 Center adalimumab Yes 40mg Inject [address] (HUMIRA) 40 9-30 mg Lukes mg/0.8 mL 11:57: subcutaneo Me dical injection 54 usly. Center TiZANidine Yes 4mg Q.[id number] Take [address] (ZANAFLEX) 9-30 [id number] by mouth 3 [facility]ukes 4 MG 11:57: 3D (three) Medical capsule 54 times Center daily. mINOCYCLine Yes 135mg QD Take [address] (DYNACIN) 9-30 mg by Lukes 100 MG 11:57: mouth Medical tablet 54 daily. [place] emollient Yes Apply [facility] combination 9-30 topically. Betsy turners no.32 11:57: Medical (EpiCeram) 54 [facility] traMADoL Yes 50mg Take [address] (ULTRAM) 50 9-30 by mouth. Lissy es mg tablet 11:57: Medical 54 [place] adalimumab Yes 40mg Inject [address] (HUMIRA) 40 9-30 mg Lukes mg/0.8 mL 11:57: subcutaneo Me dical injection 54 usly. [place] TiZANidine Yes 4mg Q.[id number] Take [address] (ZANAFLEX) 9-30 [id number] by mouth 3 Lukes 4 MG 11:57: 3D (three) Medical capsule 54 times Center daily. mINOCYCLine Yes 135mg QD Take [address] (DYNACIN) 9-30 mg by Lukes 100 MG 11:57: mouth Medical tablet 54 daily. [place] emollient Yes Apply [facility] combination 9-30 topically. Betsy gibson no.32 11:57: Medical (EpiCera) 54 [facility] traMADoL Yes 50mg Take [address] (ULTRAM) 50 9-30 by mouth. Lissy es mg tablet 11:57: Medical 54 [place] adalimumab Yes 40mg Inject [address] (HUMIRA) 40 9-30 mg Lukes mg/0.8 mL 11:57: subcutaneo Me dical injection 54 usly. [place] TiZANidine Yes 4mg Q.[id number] Take [address] (ZANAFLEX) 9-30 [id number] by mouth 3 Lukes 4 MG 11:57: 3D (three) Medical capsule 54 times Center daily. mINOCYCLine Yes 135mg QD Take [address] (DYNACIN) 9-30 mg by Lukes 100 MG 11:57: mouth Medical tablet 54 daily. [place] emollient Yes Apply [facility] combination 9-30 topically. Betsy turners no.32 11:57: Medical (EpiCeram) 54 Center aRdha pantoprazol 2021- No 40mg Take [address] e 08-20 by mouth. Lukes (Protonix) 11:56: 00:00 Medica l 20 MG 06 :00 Center tablet pantoprazol 2021- No 40mg Take [address] e 08-20 by mouth. Lukes (Protonix) 11:56: 00:00 Medica l 20 MG 06 :00 Center tablet pantoprazol 2021- No 40mg Take [address] e 08-20 by mouth. Lukes (Protonix) 11:56: 00:00 Medica [...] tablets in the evening. NaCl 0.9% Yes [id number] 250mL at 50 Un cristina (NS) IV 9-22 mL/hr, IV ity of infusion 14:45: [place] 250 [place] 00 CONTINUOUS Medical , Starting Branch on Kay[place] 08/12/22 at 0945, Until Discontinu ed, Routine&lt ;br>To keep vein open
perflutren 2021- No [id number] 2mL 2 mL, IV Univers lipid 08-12 Push, ity of microsphere 14:30: 14:11 [place] dose, On Medical (DEFINITY) [place] Branch injection 2 08/12/22 at mL 0930, Routine metoprolol 2021- No [id number] 5mg 5 mg, Slow Univers (LOPRESSOR) 08-12 IV Push, ity of injection 5 14:30: 14:43 [place] dose, On Medical [place] Branch 08/12/22 at 0930, Routine atropine 2021- No [id number] 1mg 1 mg, Slow Univers injection 1 08-12 IV Push, ity of mg 14:30: 14:29 ONCE, 1 [place] 00 :00 dose, On Medical [place] Branch 08/12/22 at 0930, Routine Saline Yes [id number] 6mL 6 mL, Univer s Bubble 08-12 Injection, ity of Study 14:03: SEE-INSTRU [place] 55 CTIONS, Medical Starting Branch on [place] 08/12/22 at 0903, Until Discontinu ed, Routine DOBUTamine 2021- No [id number] 5ug/kg/ 5 Univers (DOBUTREX) 08-12- min mcg/kg/min it y of 50 mg/50 [...] mg tablet 8-22 ity of 00:00: [place] [facility] Branch traMADoL 50 2021-0 Yes Univer s mg tablet 8-22 ity of 00:00: [place] [facility] tiZANidine 2021-0 Yes Univers 4 mg tablet 8-22 ity of 00:00: [place] [facility] traMADoL 50 2021-0 Yes Univer s mg tablet 8-22 ity of 00:00: [place] [facility] tiZANidine 2-0 Yes Univers 4 mg tablet 8-22 ity of 00:00: [place] [facility] traMADoL 50 2021-0 Yes Univer s mg tablet 8-22 ity of 00:00: [place] [facility] tiZANidine 2021-0 Yes Univers 4 mg tablet 8-22 ity of 00:00: [place] [facility] traMADoL 50 2021-0 Yes Univer s mg tablet 8-22 ity of 00:00: [place] 00 Medical Branch tiZANidine 2021-0 Yes Univers 4 mg tablet 8- ity of 00:00: [place] [facility] traMADoL 50 2021-0 Yes Univer s mg tablet 8-22 ity of 00:00: [place] [facility] tiZANidine 2021-0 Yes Univers 4 mg tablet 8- ity of 00:00: [place] [facility] traMADoL 50 2021-0 Yes Univer s mg tablet 8-22 ity of 00:00: [place] [facility] tiZANidine 2021-0 Yes Univers 4 mg tablet 8- ity of 00:00: [place] [facility] traMADoL 50 2021-0 Yes Univer s mg tablet 8- ity of 00:00: [place] [facility] tiZANidine 2021-0 Yes Univers 4 mg tablet 8- ity of 00:00: [place] [facility] traMADoL 50 2021-0 Yes Univer s mg tablet 8- ity of 00:00: [place] [facility] tiZANidine 2021-0 Yes Univers 4 mg tablet 8 ity of 00:00: [place] [facility] traMADoL 50 2021-0 Yes Univer s mg tablet 8- ity of 00:00: [place] [facility] tiZANidine 2021-0 Yes Univers 4 mg tablet 8- ity of 00:00: [place] [facility] traMADoL 50 2021-0 Yes Univer s mg tablet 8- ity of 00:00: [place] [facility] Branch pantoprazol 2021-0 Yes TAKE [address] [facility] 7-28 TABLET BY Lukes (PROTONIX) 00:00: MOUTH Medica l 40 MG 00 DAILY 30 Center tablet MINUTES BEFORE BREAKFAST OR FIRST MEAL pantoprazol 2021-0 Yes TAKE [address] [facility] e 7-28 TABLET BY Lukes (PROTONIX) 00:00: MOUTH Medica l 40 MG 00 DAILY 30 Center tablet MINUTES BEFORE BREAKFAST OR FIRST MEAL pantoprazol 2021-0 Yes TAKE [address] e 7-28 TABLET BY Lukes (PROTONIX) 00:00: MOUTH Medica l 40 MG 00 DAILY 30 Center tablet MINUTES BEFORE BREAKFAST OR FIRST MEAL pantoprazol 2021-0 [...] BREAKFAST OR FIRST MEAL TiZANidine Yes 4mg Q.[id number] Take [address] (ZANAFLEX) 6-10 [id number] by mouth 3 Lukes 4 MG 12:13: 3D (three) Medical capsule 34 times Center daily. mINOCYCLine Yes 135mg QD Take [address] (DYNACIN) 6-10 mg by Lukes 100 MG 12:13: mouth Medical tablet 34 daily. Center emollient Yes Apply [facility] combination 6-10 topically. Betsy turners no.32 12:13: Medical (EpiCeram) 34 [place] Radha pantoprazol Yes 40mg Take [address] e 6-10 by mouth. Lukes (Protonix) 12:10: Medical 20 MG 13 [place] tablet traMADoL Yes 50mg Take [address] (ULTRAM) 50 6-10 by mouth. Lissy es mg tablet 12:10: Medical 13 [place] adalimumab Yes 40mg Inject [address] (HUMIRA) 40 6-10 mg Lukes mg/0.8 mL 12:10: subcutaneo Me dical injection 13 [facility] traMADol traMADol No 1{table QD traMADol HCl 50 MG HCl 50 MG t_as_ne HCl 50 MG eded} Azithromyci Azithromyci No QD Azithromyc n 250 MG n 250 MG in 250 MG Zofran 8 MG Zofran 8 MG No 1{table Zofran 8 t} MG Pantoprazol Pantoprazol No Pantoprazo e Sodium e Sodium le Sodium Taltz 80 Taltz 80 No 1{ml} Taltz 80 MG/ML MG/ML MG/ML PROzac PROzac No PROzac Vital Signs Vital Name Observation Time Observation Value Comments Source height 2022-12-01 08:30:00 70 [in_i] [facility] weight 2022-12-01 08:30:00 162 [lb_av] [facility] temperature 2022-12-01 08:30:00 97.0 [degF] [facility] bmi 2022-12-01 08:30:00 23.24 kg/m2 [facility] oximetry 2022-12-01 08:30:00 99 % [facility] respiratory rate 2022-12-01 08:30:00 18 /min Comm on [facility] blood pressure 2022-12-01 08:30:00 135 mm[Hg] [facility] - systolic [facility] blood pressure 2022-12-01 08:30:00 83 mm[Hg] [facility] - diastolic [facility] Heart rate 2022-08-12 14:52:00 102 /min [facility] [place] [facility] Systolic blood 2022-08-12 14:52:00 140 mm[Hg] Univer sity of pressure [place] [facility] Diastolic blood 2022-08-12 14:52:00 80 mm[Hg] Unive rsity of pressure [place] [facility] Respiratory rate 2022-08-12 14:30:00 20 /min Univ ersity of [facility] Body height 2022-08-12 13:30:00 177.8 cm Universi ty of [place] [facility] Body weight 2022-08-12 13:30:00 71.668 kg [facility] ty [facility] [place] [facility] BMI 2022-08-12 13:30:00 22.67 kg/m2 Universi ty [facility] [place] [facility] Systolic blood 2022-07-14 15:00:00 127 mm[Hg] Univer sity of pressure [place] [facility] Diastolic blood 2022-07-14 15:00:00 81 mm[Hg] Unive rsity of [facility] Heart rate 2022-07-14 15:00:00 84 /min Universi ty of [place] [facility] Body temperature 2022-07-14 15:00:00 36.78 Shayy [facility] [place] [facility] Respiratory rate 2022-07-14 15:00:00 18 /min Univ ersity of [place] [facility] Body height 2022-07-14 15:00:00 177.8 cm Universi ty [facility] [place] [facility] Body weight 2022-07-14 15:00:00 72.439 kg Universi ty [facility] [place] [facility] BMI 2022-07-14 15:00:00 22.91 kg/m2 [facility]i ty [facility] [place] [facility] Oxygen saturation in 2022-07-14 15:00:00 99 /min [facility] Arterial blood by [facility] Pulse oximetry Branch Systolic blood 2022-08-20 11:40:00 131 mm[Hg] [facility] Diastolic blood 2022-08-20 11:40:00 81 mm[Hg] ALANA S t [facility] Center Heart rate 2022-08-20 11:40:00 71 /min [facility] Body temperature 2022-08-20 11:40:00 36.72 Shayy [facility] Body height 2022-08-20 11:40:00 177.8 cm [facility] Body weight 2022-08-20 11:40:00 72.122 kg [facility] BMI 2022-08-20 11:40:00 22.81 kg/m2 [facility] Oxygen saturation in 2022-08-20 11:40:00 99 /min [facility] Arterial blood by Medical Ce nter Pulse oximetry Body temperature 2022-06-01 13:52:00 36.28 Shayy [facility] Body height 2022-06-01 13:52:00 177.8 cm [facility] Body weight 2022-06-01 13:52:00 72.258 kg [facility] BMI 2022-06-01 13:52:00 22.86 kg/m2 [facility] Systolic blood 2022-04-30 11:58:00 129 mm[Hg] [facility] Diastolic blood 2022-04-30 11:58:00 79 mm[Hg] [facility] Heart rate 2022-04-30 11:58:00 76 /min [facility] Oxygen saturation in 2022-04-30 11:58:00 98 /min [facility] Arterial blood by Medical Ce nter Pulse oximetry Procedures Procedure Date / Time Performing Clinician Source Performed HEPATIC FUNCTION PANEL 2022-08-20 12:26:00 Renetta White [facility] CBC W/PLT COUNT & AUTO 2022-08-20 12:26:00 Renetta White [facility] CBC W/PLT COUNT & AUTO 2022-08-20 12:26:00 Renetta White [facility] BASIC METABOLIC PANEL 2022-08-20 12:26:00 Renetta White [facility] COMPLETE ECHOCARDIOGRAM 2022-08-12 15:08:00 David Petty [facility] DOBUTAMINE STRESS TEST W Medical Branch CONTRAST DOBUTAMINE STRESS ECHO 2022-08-12 05:01:00 Doctor Unassigned, Un [facility] [place] Medical Branch HEPATIC FUNCTION PANEL 2022-06-01 14:28:00 LucyKiel leahy [facility] CBC W/PLT COUNT & AUTO 2022-06-01 14:28:00 LucyKiel [facility] CBC W/PLT COUNT & AUTO 2022-06-01 14:28:00 LucyKiel leahy [facility] CELIAC DISEASE PANEL 2022-04-30 13:14:00 LucyKiel leahy [facility] INTERPRETATION 2022-04-30 13:14:00 LucyKiel leahy [facility] TISSUE TRANSGLUTAMINASE 2022-04-30 13:14:00 LucyKiel [facility] ENDOMYSIAL AB SCR 2022-04-30 13:14:00 LucyKiel [facility] ENDOMYSIAL AB TITER 2022-04-30 13:14:00 LucyKiel [facility] IGA 2022-04-30 13:14:00 LucyKiel leahy [facility] TISSUE TRANSGLUTAMINASE 2022-04-30 13:14:00 LucyKiel leahy [facility] COMPREHENSIVE METABOLIC 2022-04-30 12:59:00 LucyKiel leahy [facility] BILIRUBIN, DIRECT 2022-04-30 12:59:00 LucyKiel leahy [facility] CBC W/PLT COUNT & AUTO 2022-04-30 12:59:00 LucyKiel leahy [facility] HEPATITIS A ANTIBODY, IGG 2022-04-30 12:59:00 LucyKiel leahy [facility] I [facility] HEPATITIS B SURFACE 2022-04-30 12:59:00 LucyKiel leahy [facility] ANTIBODY Center IRON, TIBC, % SAT. 2022-04-30 12:59:00 LucyKiel leahy [facility] (WITHOUT FERRITIN) Center FERRITIN 2022-04-30 12:59:00 LucyKiel [facility] VOOWW-8-[id number]\, 2022-04-30 12:59:00 Kiel Prasad [facility] SERUM [place] CERULOPLASMIN 2022-04-30 12:59:00 Kiel Prasad [facility] ANTI-NUCLEAR ANTIBODY 2022-04-30 12:59:00 Kiel Prasad [facility] (GLYNN) Center ACTIN (SMOOTH MUSCLE) 2022-04-30 12:59:00 Kiel Prasad [facility] ANTIBODY, IGG Center MITOCHONDRIA M2 ANTIBODY 2022-04-30 12:59:00 Kiel Prasad [facility] (IGG) Center IMMUNOGLOBULIN G (IGG) 2022-04-30 12:59:00 Kiel Prasad [facility] CBC W/PLT COUNT & AUTO 2022-04-30 12:59:00 Kiel Prasad [facility] DIFFERENTIAL Center Plan of Care Planned Activity Planned Date Details Comments Source Future Scheduled 2022-11-[address] [facility] Test 00:00:00 (12+) [code = Medical Center DEPRESSION SCREENING (12+)] Future Scheduled 2022-07-22 INFLUENZA VACCINE (#1) C [...] Luke s Test 00:00:00 (procedure) [code = [facility] [id number]] Future Scheduled [address] [facility] Test 00:00:00 (procedure) [code = [facility] [id number]] Future Scheduled [address] [facility] Test 00:00:00 (procedure) [code = [facility] 06306158] Future Scheduled [address] [facility] Test 00:00:00 (procedure) [code = [facility] [id number]] Future Scheduled 2009 DTAP/TDAP/TD VACCINES CH I [...] Cessation Counseling and Screening (12+)] Future Scheduled [address] [...] Date/Time Type Type Clinicians Facility Department ID 2022-12-01 Outpatient Mickey, [facility] [id number] Common 08:03:02 Marco [id number] [facility] 2022-12-01 2022-12-01 OFFICE [facility] [id number] Co mmon 00:00:00 00:00:00 VISIT Álvaro SERRANO PT - CHI LEVEL 4 [facility] 2022-08-23 2022-08-23 Telephone Jovanny, UNIVERSIT [id number] Univers 00:00:00 00:00:00 [facility] [id number] i ty of [facility] [id number] [id number] [address] 2022-08-20 2022-08-20 Office Becca Santiago [facility] [id number] 11:30:00 12:00:00 Visit Christopher [facility] 2022-08-20 2022-08-20 Office Becca Medrano [facility] [id number] 11:30:00 12:00:00 Visit Christopher [facility] 2022-08-18 2022-08-18 Telephone Jovanny, UNIVERSIT [id number] Univers 00:00:00 00:00:00 [facility] [id number] i ty of [facility] 4[place] [id number] [address] 2022-08-12 2022-08-12 Outpatient R JOVANNY, [facility] [id number] Univers 10:05:44 23:59:00 DAVID ity of [facility] 2022-08-12 2022-08-12 Hospital Jovanny, UNIVERSIT [id number] Univers 07:43:41 10:04:00 Encounter [facility] [id number] ity of [facility] 4[place]2.7.2.[place] [id number] [address] 2022-08-09 2022-08-09 Laboratory Only, Adc Test [facility] 1.2.840. [id number] Univers 10:30:00 10:45:00 Only Jovanny, David Tinoco AXTELL 350.1.13 .10 ity of [place] 4[place]2.7.2.[place] [id number] [place] [address] Branch 2022-08-09 2022-08-09 Outpatient R JOVANNY, [facility] [id number] Univers 10:30:00 10:30:00 DAVID ity [facility] 2022-08-02 2022-08-02 Telephone Jovanny, UNIVERSIT [id number] Univers 00:00:00 00:00:00 [facility] [id number] i ty of [facility] CLINICS 4[place] [id number] [address] 2022-07-22 2022-07-22 Telephone Jovanny, UNIVERSIT [id number] Univers 00:00:00 00:00:00 [facility] HEALTH [id number] i ty of [facility] CLINICS 4[place] [id number] [address] 2022-07-21 2022-07-21 Telephone Jovanny, UNIVERSIT [id number] Univers 00:00:00 00:00:00 [facility] [id number] i ty of [facility] CLINICS [place] [id number] [address] 2022-07-20 2022-07-20 Abstract Deisy [facility] [id number] 00:00:00 00:00:00 [facility] 2022-07-20 2022-07-20 Abstract Deisy [facility] [id number] 00:00:00 00:00:00 [facility] 2022-07-19 2022-07-19 Telephone Jovanny, UNIVERSIT [id number] Univers 00:00:00 00:00:00 [facility] [id number] i ty of [facility] 4[place] [id number] [address] 2022-07-19 2022-07-19 Abstract Deisy [facility] [id number] 00:00:00 00:00:00 [facility] 2022-07-19 2022-07-19 Abstract Deisy [facility] [id number] 00:00:00 00:00:00 [facility] 2022-07-14 2022-07-14 Amphibious Operations Officer [facility] UNIVERSIT [id number] Univers 10:45:00 11:00:00 [facility] 350.1.13 .10 ity of [facility] 4.2.7.2.[place] [id number] [facility] [address] Branch 2022-07-14 2022-07-14 Outpatient R JOVANNY, [facility] [id number] Univers 10:45:00 10:45:00 [facility] 2022-07-14 2022-07-14 Outpatient R JOVANNY, [facility] [id number] Univers 10:45:00 10:45:00 [facility] 2022-07-14 2022-07-14 Office Jovanny, UNIVERSIT [id number] Univers 10:00:00 10:30:00 Visit [facility] [id number] i ty of [facility] 4.2.7.2.[place] [id number] [facility] [facility] [address] 2022-07-14 2022-07-14 Orders Doctor ALCIDES [id number] Univers 00:00:00 00:00:00 Only Unassigned, THUY [id number] ity of [place] [facility] [id number] Holger as [phone] [facility] [address] 2022-06-02 2022-06-02 Telephone Dakota [facility] [id number] [facility] 00:00[facility]00 00:00:00 Kenyatta Penny [facility] 2022-06-02 2022-06-02 Telephone Dakota [facility] [id number] [address] 00:00[facility]00 00:00:00 [facility] 2022-06-01 2022-06-01 Office Kiel Prasad [facility] [id number] [facility] 13:30:00 14:00:00 Visit [facility] 2022-06-01 2022-06-01 Office Kiel Gamboa [facility] [id number] [facility] 13:30:00 14:00:00 Visit [facility] 2022-05-31 2022-05-31 Telephone Ranulfo [facility] [id number] [facility] 00:00[facility]00 00:00:00 [facility] 2022-05-31 2022-05-31 Telephone Ranulfo [facility] [id number] [facility] 00:00[facility]00 00:00:00 [facility] 2022-05-13 2022-05-13 Telephone Pradip [facility] [id number] 00:00[facility]00 00:00:00 [facility] 2022-05-13 2022-05-13 Telephone Pradip [facility] [id number] [address] 00:00[facility]00 00:00:00 [facility] 2022-05-05 2022-05-05 Documentedi Lynn [facility] [id number] 00:[facility] 00:00:00 [facility] 2022-05-05 2022-05-05 Bere Lynn [facility] [id number] [facility] 00:00[facility] 00:00:00 [facility] 2022-04-30 2022-04-30 Office Kiel Prasad [facility] [id number] 12:00:00 13:00:00 Visit [facility] 2022-04-30 2022-04-30 Office Kiel Gamboa [facility] [id number] 12:00:00 13:00:00 Visit Elio [facility] 2022-04-30 2022-04-30 Outpatient [facility] [id number] [facility] 00:00:00 00:00:00 2022-04-30 2022-04-30 [facility] [id number] 00:00:[facility] 00:00:[address] [facility] 2022-04-30 2022-04-30 Documentat [facility] [id number] 00:00:00 00:00:00 ion Kenyatta yue [facility] 2022-01-09 2022-01-09 Outpatient [facility] [id number] Univers 13:20:00 13:35:25 [facility] 2022-01-09 2022-01-09 Nurse Nurse, [facility] [id number] [facility] 13:20:00 13:35:25 Visit Satish [facility] [id number] ity of [facility] [id number] Holger as LIZANDRO?BLEA [phone] [facility] [address] [facility] OFFICE BUILDING 2021-03-14 2021-03-14 Urgent Provider, [facility] [id number] Univers 10:21:38 10:41:38 Care Elsa [facility] [id number] ity of [place] [id number] Holger as Professio [phone] [address] Office Building One 2021-03-14 2021-03-14 [facility]patient R [facility] [id number] Univers 10:20:00 10:20:00 [facility] Results Test Description Test Time Test Comments [...] (test code = 347) 47 U/L 6-55 Marker Machine Attendant ID - MITCHBASIC METABOLIC [id number] 13:28:45 Test Item Value Reference Range Interpretation [...] not as accur ate as Creatinine Shahla weaver in predicting glom erular filtration rate . Estimated GFR is not appl icable for dialysis patien ts Marker Machine Attendant ID - MITCHCBC W/PLT COUNT & AUTO [id number] 12:59:37 Test Item Value Reference Range Interpretation [...] (test code = 2801) Echocardiogram dobutamine stress [id number] 16:30:01 Test Item Value Reference Range Interpretation Comments Height (test code = in 1826840011) Weight (test code = lbs 5707098125) Systolic BP (test mmHg code = 0050909509) Diastolic BP (test mmHg code = 4020536170) Heart Rate (test bpm code = 4902701378) BSA (test code = 1.89 m2 9204384470) Radiology Study observation (narrative) (test code = 52840-5) DAVID (test code = Table formatting from [...] was performed. Patient exhibited sinus bradycardia. -Vijay Socorro Lopez R.N.Resting ECGNormal sinus rhythm.Stress ECGSinus tachycardia. No significant ST depression.Echo Post StressThe post-stress echo shows appropriate increased thickness to all myocardial segments, increased ejection fraction 75-80% and no wall motion abnormalities noted.Study ImpressionAdequate hemodynamic response, adequate inotropic response, adequate chronotropic response and negative stress echocardiography study for inducible ischemia. [facility] [id number] 17:03:09 Test Item Value Reference Range Interpretation [...] Specimen slightly (test code = 347) hemolyzed Marker Machine Attendant ID - BSCBC W/PLT COUNT & AUTO [id number] 16:48:26 Test Item Value Reference Range Interpretation [...] method.Test performed by IFA method.HEPATITIS A ANTIBODY, [id number] 15:39:02 Test Item Value Reference Range Interpretation Comments HEPATITIS A IGG ANTIBODY (BEAKER) Nonreactive Nonreactive (test code = 2797) Marker Machine Attendant ID - BSHEPATITIS B SURFACE [id number] 15:38:57 Test Item Value Reference Range Interpretation Comments HEPATITIS B SURFACE ANTIBODY 694.4 mIU/mL <8.0 H (BEAKER) (test code = 647) Marker Machine Attendant ID - [id number] 15:18:35 Test Item Value Reference Range Interpretation Comments ALPHA-1 ANTITRYPSIN (BEAKER) 133.20 mg/dL 90.00-200.00 (test code = 502) Marker Machine Attendant ID - LEOBARDO MOperator ID - BSIMMUNOGLOBULIN G (IGG)2022-04-30 15:18:20 Test Item Value Reference Range Interpretation Comments IMMUNOGLOBULIN G (IGG) 1176 mg/dL See_Comment [Aut omated message] (BEAKER) (test code = The sy stem which 427) generated this result transmit ricarda reference range : 540-1,822. The reference range was not used to interpret this result as normal/abnormal . Marker Machine Attendant ID - [id number] 15:03:13 Test Item Value Reference Range Interpretation Comments FERRITIN (BEAKER) (test code = 151.93 ng/mL 5.00-275.00 361) Marker Machine Attendant ID - BSCOMPREHENSIVE METABOLIC [id number] 14:45:00 Test Item Value Reference Range Interpretation [...] 1092) DATA TO CALCULA TE ESTIMATED GFR. Marker Machine Attendant ID - LEOBARDO PRAKASHILIRUBIN, [id number] 14:42:46 Test Item Value Reference Range Interpretation Comments BILIRUBIN DIRECT (BEAKER) (test 0.3 mg/dL 0.1-0.5 code = 706) Marker Machine Attendant ID - LEOBARDO BARNESON, TIBC, % SAT. (WITHOUT FERRITIN)2022-04-30 14:42:46 Test Item Value Reference Range Interpretation Comments IRON (BEAKER) (test code = 547) 95.0 ug/dL 40.0-160.0 TOTAL IRON BINDING CAPACITY 315 ug/dL 250-450 (BEAKER) (test code = 769) IRON % SATURATION (2) (BEAKER) 30 % 20-55 (test code = 1988) Marker Machine Attendant ID - LEOBARDO MCBC W/PLT COUNT & AUTO [id number] 14:28:04 Test Item Value Reference Range Interpretation [...] % 0-1 PERCENT (BEAKER) (test code = 1801)
[2022-12-06] MEDS ORDERED: HYDROCODONE/APAP 5/325 MG TAB ONE (17:27)
[2022-12-06 17:43] LABS: Urine Blood Negative (Negative); Urine Glucose Negative (Negative); Urine Protein Negative (Negative); Urine Specific Gravity <=1.005 (1.005-1.030); Urine pH 6.5 (5.0-7.0)
[2022-12-06 18:00] LABS: Urine Bacteria None Seen /HPF (<20); Urine RBC None Seen /HPF (None Seen)
--- NOTE | 2022-12-06 18:06 | ER ---
Nurse's Notes [facility] Name: John Hoffmann Age: 32 yrs Sex: Male : 1990 Arrival Date: 12/06/2022 Time: 17:03 Bed 5 Private MD: Diagnosis: Penile Sprain Presentation: 12/06 17:15 Chief complaint: Patient states: he was having intercourse with his wiffe 11 days ago kr3 and bent his penis. He was seen at his urologist on Tuesday last week and instructed to take L-Arginine and motrin. this medication has not helped. He called his urologist back and was told to come to the ED for a scan. Coronavirus screen: Vaccine status: Patient reports being unvaccinated. Client denies travel out of the [place] in the last 14 days. Ebola Screen: Patient denies travel to an Ebola-affected area in the 21 days before illness onset. Initial Sepsis Screen: Does the patient meet any 2 criteria? No. Patient's initial sepsis screen is negative. Does the patient have a suspected source of infection? No. Patient's initial sepsis screen is negative. Risk Assessment: Do you want to hurt yourself or someone else? Patient reports no desire to harm self or others. Onset of symptoms was November 25, 2022. 17:15 Method Of Arrival: Ambulatory kr3 17:15 Acuity: FRENCH 3 kr3 Triage Assessment: 17:19 General: Appears in no apparent distress. uncomfortable, Behavior is calm, cooperative, kr3 appropriate for age. Pain: Complains of pain in penis. Historical: - Allergies: 17:31 No Known Allergies; vg1 - Home Meds: 17:19 tizanidine 4 mg Oral tab 1 tab nightly [Active]; tramadol 50 mg Oral tab 1 tab BID for kr3 Pain [Active]; alfuzosin 10 mg Oral Tb24 1 tab nightly [Active]; - PMHx: 17:19 chronic back pain; GERD; kr3 - PSHx: 17:19 Appendectomy; Cholecystectomy; kr3 - Immunization history:: Adult Immunizations not up to date. - Social history:: Smoking status: Patient reports the use of cigarette tobacco products, denies chronic smoking, but will smoke occasionally. Screenin:30 [facility] ED Fall Risk Assessment (Adult) History of falling in the last 3 months, kc6 including since admission No falls in past 3 months (0 pts) Confusion or Disorientation No (0 pts) Intoxicated or Sedated No (0 pts) Impaired Gait No (0 pts) Mobility Assist Device Used No (0 pt) Altered Elimination No (0 pt) Score/Fall Risk Level 0 - 2 = Low Risk Oriented to surroundings, Maintained a safe environment, Educated pt \T\ family on fall prevention, incl call for assistance when getting out of bed, Assessed \T\ reinforced patient's understanding of fall precautions, Hourly rounding (assess needs \T\ fall precautionary measures) done. Abuse screen: Denies threats or abuse. Denies injuries from another. Nutritional screening: No deficits noted. Tuberculosis screening: No symptoms or risk factors identified. Assessment: 17:26 General: Appears in no apparent distress. comfortable, Behavior is calm, cooperative, kc6 appropriate for age. Pain: Complains of pain in penis Pain does not radiate. Pain currently is 6 out of 10 on a pain scale. at worst was 7 out of 10 on a pain scale. Quality of pain is described as sharp, Pain began about a week ago Is continuous, Alleviated by rest, Also complains of no other associated symptoms. Neuro: Walsh Agitation-Sedation Scale (RASS): 0 - Alert and Calm Level of Consciousness is awake, alert, obeys commands, Oriented to person, place, time, situation, Appropriate for age. Cardiovascular: Heart tones S1 S2 present Capillary refill < 3 seconds. Respiratory: Airway is patent Trachea midline Respiratory effort is even, unlabored, Respiratory pattern is regular, symmetrical, Breath sounds are clear bilaterally. GI: No signs and/or symptoms were reported involving the gastrointestinal system. : Reports pain in the penis. EENT: No signs and/or symptoms were reported regarding the EENT system. Derm: No signs and/or symptoms reported regarding the dermatologic system. Skin is intact, Skin is pink, warm \T\ dry. Musculoskeletal: No signs and/or symptoms reported regarding the musculoskeletal system. Circulation, motion, and sensation intact. Capillary refill < 3 seconds, Range of motion: intact in all extremities. 18:18 Reassessment: Patient appears in no apparent distress at this time. No changes from kc6 previously documented assessment. Patient and/or family updated on plan of care and expected duration. Pain level reassessed. Patient is alert, oriented x 3, equal unlabored respirations, skin warm/dry/pink. Vital Signs: 17:15 BP 148 / 88; Pulse 87; Resp 18; Temp 98.0; Pulse Ox 100% ; Weight 72.57 kg; Height 5 kr3 ft. 10 in. (177.80 cm); 18:19 BP 131 / 81; Pulse 75; Resp 18 S; Pulse Ox 100% on R/A; Pain 6/10; kc6 17:15 Body Mass Index 22.96 (72.57 kg, 177.80 cm) kr3 ED Course: 17:03 Patient arrived in ED. am2 17:04 [facility]NP [facility] 7 17:04 Kiran Corcoran MD is Attending Physician. 7 17:12 Grace Curry, RN is Primary Nurse. kc6 17:19 Triage completed. kr3 17:20 Patient placed in an exam room, on a stretcher. kr3 17:30 Patient has correct armband on for positive identification. Placed in gown. Bed in low kc6 position. Call light in reach. Side rails up X2. 17:43 Urine Microscopic Only Sent. kc6 18:05 Arthur Adkins MD is Referral Physician. 7 18:19 No provider procedures requiring assistance completed. Patient did not have IV access kc6 during this emergency room visit. Administered Medications: 17:26 Drug: HYDROcodone-acetaminophen 5 mg-325 mg 1 tabs Route: PO; kc6 18:19 Follow up: Response: No adverse reaction; Pain is decreased; RASS: Alert and Calm (0) kc6 Medication: 18:19 VIS not applicable for this client. kc6 Outcome: 18:06 Discharge ordered by . jh7 18:19 Discharged to home ambulatory. kc6 18:19 Condition: stable 18:19 Discharge instructions given to patient, Instructed on discharge instructions, follow up and referral plans. medication usage, Demonstrated understanding of instructions, follow-up care, medications, Prescriptions given X 1. 18:20 Patient left the ED. kc6 Signatures: Sumi Strange am2 Chelsie Small, RN RN vg1 Amy Urbina FNP [employer] 7 Ana Paula Robertson, RN RN kr3 Grace Curry RN RN kc6
--- NOTE | 2022-12-06 18:06 | EDPHYS ---
Physician Documentation [facility] Name: John Hoffmann Age: 32 yrs Sex: Male : 1990 Arrival Date: 12/06/2022 Time: 17:03 Bed 5 Private MD: ED Physician Kiran Corcoran HPI: 12/06 17:15 This 32 yrs old Male presents to ER via Ambulatory with complaints of Penile Pain. jh7 17:15 The patient presents with tenderness, that is mild, of the shaft of penis. Onset: The jh7 symptoms/episode began/occurred 11 day(s) ago. Associated signs and symptoms: Pertinent negatives: abdominal pain, constipation, diarrhea, dysuria, fever, hematuria, nausea, vomiting. 32-year-old male presents with penile pain. He reports that 11 days ago he had intercourse with his and felt his penis bent. He saw a Adkins 5 to 6 days later who stated that it was likely a sprain. He comes to the ER due to continued pain. States he is able to urinate without any issues that he is pending a penile duplex ultrasound.. Historical: - Allergies: 17:31 No Known Allergies; vg1 - Home Meds: 17:19 tizanidine 4 mg Oral tab 1 tab nightly [Active]; tramadol 50 mg Oral tab 1 tab BID for kr3 Pain [Active]; alfuzosin 10 mg Oral Tb24 1 tab nightly [Active]; - PMHx: 17:19 chronic back pain; GERD; kr3 - PSHx: 17:19 Appendectomy; Cholecystectomy; kr3 - Immunization history:: Adult Immunizations not up to date. - Social history:: Smoking status: Patient reports the use of cigarette tobacco products, denies chronic smoking, but will smoke occasionally. ROS: 18:34 Constitutional: Negative for fever, chills, and weight loss, Cardiovascular: Negative jh7 for chest pain, palpitations, and edema, Respiratory: Negative for shortness of breath, cough, wheezing, and pleuritic chest pain, Abdomen/GI: Negative for abdominal pain, nausea, vomiting, diarrhea, and constipation, Back: Negative for injury and pain, MS/Extremity: Negative for injury and deformity, Skin: Negative for injury, rash, and discoloration, Neuro: Negative for headache, weakness, numbness, tingling, and seizure. 18:34 : Positive for penile pain, Negative for urinary symptoms, hematuria, difficulty urinating, penile discharge, testicular pain 18:34 All other systems are negative. Exam: 18:34 Constitutional: This is a well developed, well nourished patient who is awake, alert, jh7 and in no acute distress. Cardiovascular: Regular rate and rhythm with a normal S1 and S2. No gallops, murmurs, or rubs. Normal PMI, no JVD. No pulse deficits. Respiratory: Lungs have equal breath sounds bilaterally, clear to auscultation and percussion. No rales, rhonchi or wheezes noted. No increased work of breathing, no retractions or nasal flaring. Abdomen/GI: Soft, non-tender, with normal bowel sounds. No distension or tympany. No guarding or rebound. No evidence of tenderness throughout. Skin: Warm, dry with normal turgor. Normal color with no rashes, no lesions, and no evidence of cellulitis. MS/ Extremity: Pulses equal, no cyanosis. Neurovascular intact. Full, normal range of motion. Neuro: Awake and alert, GCS 15, oriented to person, place, time, and situation. Motor strength 5/5 in all extremities. Sensory grossly intact. Normal gait. 18:34 : Male external genitalia: normal, no abrasion, no discharge, no erythema, no swelling, no tenderness. Vital Signs: 17:15 BP 148 / 88; Pulse 87; Resp 18; Temp 98.0; Pulse Ox 100% ; Weight 72.57 kg; Height 5 kr3 ft. 10 in. (177.80 cm); 18:19 BP 131 / 81; Pulse 75; Resp 18 S; Pulse Ox 100% on R/A; Pain 6/10; kc6 17:15 Body Mass Index 22.96 (72.57 kg, 177.80 cm) kr3 MDM: 17:04 Patient medically screened. [facility] 18:10 Differential diagnosis: Penile sprain, penile contusion, penile fracture. Data [facility] reviewed: vital signs, nurses notes, lab test result(s), urinalysis. Management of patient was discussed with the following: Diamond Sawer: Dr. Adkins, Urology. Dr. Adkins stated that he did not see anything significant on the patient's physical exam and that he also had a negative urine in office. He stated that the patient could get a either a penile duplex ultrasound or an MRI of the penis while erect. I informed him that I contacted ultrasound who said they do not perform these here. The patient said he felt comfortable getting this ultrasound outpatient because he was already pending insurance approval for it. Dr. Adkins was informed of this.. I considered the following discharge prescriptions or medication management in the emergency department Prescribed muscle relaxers to help the patient at night. He stated that he had anti-inflammatories at home.. Test considered but Not performed: MRI: MRI of the penis. Counseling: I had a detailed discussion with the patient and/or guardian regarding: the historical points, exam findings, and any diagnostic results supporting the discharge/admit diagnosis, the need for outpatient follow up, a urologist, to return to the emergency department if symptoms worsen or persist or if there are any questions or concerns that arise at home. 12/06 17:19 Order name: Urine Microscopic Only; Complete Time: 18:04 jh7 12/06 17:43 Order name: Urine Dipstick-Ancillary; Complete Time: 17:47 EDMS 12/06 17:19 Order name: Urine Dipstick-Ancillary (obtain specimen); Complete Time: 17:43 [facility] Administered Medications: 17:26 Drug: HYDROcodone-acetaminophen 5 mg-325 mg 1 tabs Route: PO; kc6 18:19 Follow up: Response: No adverse reaction; Pain is decreased; RASS: Alert and Calm (0) 6 Disposition: 12/07 08:08 Co-signature as Attending Physician, Kiran Corcoran MD I reviewed the patient's care rt provided by the Advanced Practice Provider and agree with the diagnosis and treatment plan. Disposition Summary: 12/06/22 18:06 Discharge Ordered Location: Home [facility] Problem: new [facility] Symptoms: are unchanged jh7 Condition: Stable 7 Diagnosis - Penile Sprain 7 Followup: [facility] - With: Arthur Adkins MD - When: 2 - 3 days - Reason: Recheck today's complaints Discharge Instructions: - Discharge Summary Sheet [facility] - Penile Fracture [facility] Forms: - Medication Reconciliation Form 7 - Thank You Letter [facility] Prescriptions: - Cyclobenzaprine 5 mg Oral Tablet - take 1 tablet by ORAL route 3 times per day As needed; 15 tablet; Refills: 0, jh7 Product Selection Permitted Signatures: Dispatcher [employer] Chelsie Mcgregor, RN RN vg1 Amy Urbina, COLOR GRINDER COLOR GRINDER jh7 Ana Paula Robertson, RN RN kr3 Grace Curry RN RN kc6 Kiran Corcoran MD MD rt
[2022-12-06 18:42] VITALS: TEMP 98; O2SAT 100
[2022-12-06 18:44] VITALS: BP 131/81
== END 2022-12-06 18:20 | disposition home or self-care (01) ==
LOC: ER 16:56
DX: S30.93XA Unspecified superficial injury of penis, initial encounter (principal); F17.210 Nicotine dependence, cigarettes, uncomplicated
CPT/HCPCS: 81003; 81015; 99283

== ENCOUNTER 2023-05-24 13:35 | Emergency (ER) | payer OTHER ==
--- OUTSIDE RECORDS SUMMARY | 2023-05-24 13:40 | XMS REPORT | Continuity of Care Document ---
:1990 Author Organization [facility] t Address [address] [place] [address] [address] [place] [address] Care Team Providers Name Role Phone MARCO AREVALO JR Primary Care Physician Unavailable Marco Arevalo Attending Clinician Unavailable Arthur Adkins MD Attending Clinician DAVID PETTY Attending Clinician Unavailable David Spence Attending Clinician [phone] Pamela DEL VALLE MPH, Becca Fernando Attending Clinician [phone] Renetta Chaney Attending Clinician [phone] Only, Adc Test Attending Clinician Unavailable Moustapha Olivas MA Attending Clinician Unavailable [facility] Attending Clinician Unavailable Doctor Unassigned, Chi[place] Attending Clinician Unavailable Kenyatta Duncan RN Attending Clinician Unavailable Kiel Prasad MD Attending Clinician Reyna Winchester MA Attending Clinician Unavailable Katja Pate Attending Clinician Jolene Lynn RN Attending Clinician Unavailable KIEL PRASAD Attending Clinician Unavailable ELVIS COVARRUBIAS Attending Clinician Unavailable Nurse, [facility] Attending Clinician Unavailable Elvis Covarrubias MD Attending Clinician Provider, [facility] Attending Clinician Unavailable Alcides Hunter PA-C Attending Clinician ALCIDES HUNTER Attending Clinician Unavailable Payers Payer Name Policy Type Policy Number Effective Date Expiration Date S johny Problems Condition Condition Condition Status Onset Resolution Last Treating Co mments Source Name Details Category Date Date Treatment Clinician Date Ankylosing Ankylosing Disease Recurre Last [facility] spondyliti spondyliti nce 04-30 Assessmen Luarthur s of s of 00:00: t & [...] al profile not suggestiv e. Complete . comprehen dacia autoimmun e workup and get to her ultrasoun d Abnormal Abnormal Disease Active [facility] t & Plan: Medic [...] get ultrasoun d for further evaluatio n Screening Screening Disease Active Last [facility] for 6- [facility] endocrine, endocrine, 00:00: t & [...] te vaccines. Chronic Chronic Disease Active Last [facility] St diarrhea diarrhea 6-10 Assessmen Lissy guerrero 00:00: t & Plan: Medical 00 [facility] Center g of this note might be [...] rs active active ity of problems problems [facility] [id number] Anxiety Problem [facility] [id number] Left Problem Commo n [id number] testicular Spiri t pain [facility] [id number] Intractabl Problem Co mmon e Spirit vomiting, - [facility] presence St of nausea [facility] not Medical specified, Center unspecifie d vomiting type [id number] Painful Problem Commo n bladder Spirit spasm [facility] [id number] Dysfunctio Problem Co mmon nal Spirit voiding of [facility] urine [facility] [id number] [place], [place] [id number] joint, Spirit knee, - [facility]I right [facility] [id number] Injury to Problem Com mon penis, Spirit initial - [facility] encounter [facility] [id number] Penile Problem Common pain [facility] [id number] Other Problem Common chronic [facility] pain [facility] [id number] Pain, [place] Commo n 16484 joint, Spirit knee, left - [facility] [id number] Lower Problem Common abdominal [facility] pain [facility] [id number] Acute Problem Common right [facility] flank pain [facility] [id number] Constipati Problem Com mon on, Spirit unspecifie - CHI d constipati [facility] on type Medical Center [id number] 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 [id number] Childhood Problem Com mon asthma, Spirit unspecifie - [facility] Med[facility] l d whether Center complicate d, unspecifie d whether persistent [id number] Cough Problem Common [facility] Allergies, Adverse Reactions, Alerts Allergy Allergy Status Severity Reaction(s) Onset Inactive Treating Comm ents Source Name Type Date Date Clinician NO KNOWN Allergy Active [facility] NO KNOWN Drug Active [facility] ity of S [facility] Social History Social Habit Start Date Stop Date Quantity Comments Source History SDOH [facility] Alcohol Frequency Medical Center History SDOH [facility] Alcohol Std Medical Cente r Drinks History SDOH [facility] Alcohol Binge Medical Richard ter History of [facility] - Tobacco Use [facility] Alcohol intake 2022-08-20 2022-08-20 Ex-drinker [facility] es 00:00:00 00:00:00 (finding) Medical Center Exposure to 2022-08-02 2022-08-12 Not sure University SARS-CoV-2 00:00:00 09:58:00 [facility] (event) [place] Tobacco use and 2022-04-30 2022-04-30 Smokeless tobacco [facility] exposure 00:00:00 00:00:00 non-user [facility] Alcohol Comment 2022-04-30 2022-04-[address] [facility] 00:00:00 00:00:[address] [place] [address] Sex Ass[birth year] At [birth year] [facility] kes 00:00:00 00:00:00 [facility] Smoking Status Start Date Stop Date Source Never Smoker [facility] - [facility] Ce nter Current every day 2022-04-30 00:00:[address] [facility] smoker Center Ex-smoker 2021-03-14 00:00:00 2021-03-14 00:00:00 [facility] Medications Ordered Filled Start Stop Current [...] injection 54 usly. Center TiZANidine Yes 4mg Q.[id number] Take [address] (ZANAFLEX) 9-30 [id number] by mouth 3 [facility] 4 MG 11:57: 3D (three) Medical capsule 54 times Center daily. mINOCYCLine 0 Yes 135mg QD Take [address] (DYNACIN) 9-30 mg by Lukes 100 MG 11:57: mouth Medical tablet 54 daily. Center emollient [address] combination 9-30 topically. Betsy turners no.32 11:57: Medical (EpiCeram) 54 [place] Radha traMADoL 0 Yes 50mg Take [address] (ULTRAM) 50 9-30 by mouth. Lissy es mg tablet 11:57: Medical 54 Center adalimumab 2021-0 Yes 40mg Inject [address] (HUMIRA) 40 9-30 mg Lukes mg/0.8 mL 11:57: subcutaneo Me dical injection 54 usly. Center TiZANidine 0 Yes 4mg Q.[id number] Take [address] (ZANAFLEX) 9-30 [id number] by mouth 3 [facility] 4 MG 11:57: 3D (three) Medical capsule 54 times Center daily. mINOCYCLine 0 Yes 135mg QD Take [address] (DYNACIN) 9-30 mg by Lukes 100 MG 11:57: mouth Medical tablet 54 daily. [place] emollient [address] [facility] combination 9-30 topically. Betsy turners no.32 11:57: Medical (EpiCeram) 54 [place] Radha traMADoL 0 Yes 50mg Take [address] (ULTRAM) 50 9-30 by mouth. Lissy es mg tablet 11:57: Medical 54 [place] adalimumab 2021-0 Yes 40mg Inject [address] (HUMIRA) 40 9-30 mg Lukes mg/0.8 mL 11:57: subcutaneo Me dical injection 54 usly. Center TiZANidine 2021-0 Yes 4mg Q.[id number] Take [address] (ZANAFLEX) 9-30 [id number] by mouth 3 [facility]ukes 4 MG 11:57: 3D (three) Medical capsule 54 times Center daily. mINOCYCLine 2021-0 Yes 135mg QD Take [address] (DYNACIN) 9-30 mg by Lukes 100 MG 11:57: mouth Medical tablet 54 daily. Center emollient [address] combination 9-30 topically. Betsy kes no.32 11:57: Medical ([facility]) [address] [place] [address] Radha traMADoL 0 Yes 50mg Take [address] (ULTRAM) 50 9-30 by mouth. Lissy es mg tablet 11:57: Medical [address] [place] [address] adalimumab 0 Yes 40mg Inject [address] (HUMIRA) 40 9-30 mg Lukes mg/0.8 mL 11:57: subcutaneo Me dical injection 54 usly. [place] TiZANidine 0 Yes 4mg Q.[id number] Take [address] (ZANAFLEX) 9-30 [id number] by mouth 3 [facility]ukes 4 MG 11:57: 3D (three) Medical capsule 54 times Center daily. mINOCYCLine 0 Yes 135mg QD Take [address] (DYNACIN) 9-30 mg by Lukes 100 MG 11:57: mouth Medical tablet 54 daily. [place] emollient Yes Apply [facility] combination 9-30 topically. Betsy turners no.32 11:57: [facility] ([address] traMADoL Yes 50mg Take [address] (ULTRAM) 50 9-30 by mouth. Lissy es mg tablet 11:57: Medical [address] [place] [address] adalimumab Yes 40mg Inject [address] (HUMIRA) 40 9-30 mg Lukes mg/0.8 mL 11:57: subcutaneo Me dical injection 54 usly. [place] TiZANidine Yes 4mg Q.[id number] Take [address] (ZANAFLEX) 9-30 [id number] by mouth 3 [facility]ukes 4 MG 11:57: 3D (three) Medical capsule 54 times Center daily. mINOCYCLine 0 Yes 135mg QD Take [address] (DYNACIN) 9-30 mg by Lukes 100 MG 11:57: mouth Medical tablet 54 daily. [place] emollient [address] combination 9-30 topically. Betsy kes no.32 11:57: [facility] ([address] traMADoL 0 Yes 50mg Take [address] (ULTRAM) 50 9-30 by mouth. Lissy es mg tablet 11:57: Medical [address] [place] [address] adalimumab 0 Yes 40mg Inject [address] (HUMIRA) 40 9-30 mg Lukes mg/0.8 mL 11:57: subcutaneo Me dical injection 54 usly. Center TiZANidine Yes 4mg Q.[id number] Take [address] (ZANAFLEX) 9-30 [id number] by mouth 3 [facility]ukes 4 MG 11:57: 3D (three) Medical capsule 54 times Center daily. mINOCYCLine Yes 135mg QD Take [address] (DYNACIN) 9-30 mg by Lukes 100 MG 11:57: mouth Medical tablet 54 daily. [place] emollient Yes Apply [facility] combination 9-30 topically. Betsy kes no.32 11:57: Medical (EpiCeram) 54 Center Radha pantoprazol 2021- No 40mg Take [address] e -30 -30 by mouth. Lukes (Protonix) 11:56: 00:00 Medica l 20 MG 06 :00 Center tablet pantoprazol 2021- No 40mg Take [address] e -20 08-30 by mouth. Lukes (Protonix) 11:56: 00:00 Medica l 20 MG 06 :00 Center tablet pantoprazol 2021- No 40mg Take [address] e 9-30 -30 by mouth. Lukes (Protonix) 11:56: 00:00 Medica l 20 MG 06 :00 Center tablet pantoprazol 0 2021- No 40mg Take [address] e -30 -30 by mouth. Lukes (Protonix) 11:56: 00:00 Medica l 20 MG 06 :00 Center tablet pantoprazol 0 2021- No 40mg Take [address] e -30 -30 by mouth. Lukes (Protonix) 11:56: 00:00 Medica l 20 MG 06 :00 Center tablet pantoprazol 0 2021- No 40mg Take [address] e -30 09-30 by mouth. Lukes (Protonix) 11:56: 00:00 [...] tablets in the evening. NaCl 0.9% Yes [id number] 250mL at 50 Un cristina (NS) IV - mL/hr, IV ity of infusion 14:45: [place] 250 [place] 00 CONTINUOUS Medical , Starting Branch on [place] 08/12/22 at 0945, Until Discontinu ed, Routine&lt ;br>To keep vein open
perflutren 2021- No [id number] 2mL 2 mL, IV Univers lipid 08-12 Push, ity of microsphere 14:30: 14:11 [place] dose, On Medical (DEFINITY) [place] Branch injection 2 08/12/22 at mL 0930, Routine metoprolol 2021- No [id number] 5mg 5 mg, Slow Univers (LOPRESSOR) 08-12 IV Push, ity of injection 5 14:30: 14:43 [place] [facility] [facility]22 at 0930, Routine atropine 2021- No [id number] 1mg 1 mg, Slow Univers injection 1 08-12 IV Push, ity of mg 14:30: 14:29 ONCE, 1 [place] 00 :00 dose, On Medical [place] Branch 08/12/22 at 0930, Routine Saline Yes [id number] 6mL 6 mL, Univer s Bubble 08-12 Injection, ity of Study 14:03: SEE-INSTRU [place] 55 CTIONS, Medical Starting Branch on [place] 08/12/22 at 0903, Until Discontinu ed, Routine DOBUTamine 2- No [id number] 5ug/kg/ 5 Univers (DOBUTREX) 08-12 09-23 min [...] s mg tablet 8-22 ity of 00:00: [place] [facility] tiZANidine 2021-0 Yes Univers 4 mg tablet 8-22 ity of 00:00: [place] [facility] traMADoL 50 2021-0 Yes Univer s mg tablet 8-22 ity of 00:00: [place] [facility] tiZANidine 2021-0 Yes Univers 4 mg tablet 8-22 ity of 00:00: [place] [facility] traMADoL 50 2021-0 Yes Univer s mg tablet 8-22 ity of 00:00: [place] [facility] tiZANidine 2-0 Yes Univers 4 mg tablet 8-22 ity of 00:00: [place] [facility] traMADoL 50 2021-0 Yes Univer s mg tablet 8-22 ity of 00:00: [place] [facility] tiZANidine 2-0 Yes Univers 4 mg tablet 8-22 ity of 00:00: [place] [facility] traMADoL 50 2-0 Yes Univer s mg tablet 8-22 ity of 00:00: Medical Branch tiZANidine 2-0 Yes Univers 4 mg tablet 8-22 ity of 00:00: [place] [facility] traMADoL 50 2-0 Yes Univer s mg tablet 8-22 ity of 00:00: [place] [facility] tiZANidine 2-0 Yes Univers 4 mg tablet 8-22 ity of 00:00: [place] [facility] traMADoL 50 2-0 Yes Univer s mg tablet 8-22 ity of 00:00: [place] [facility] tiZANidine 2-0 Yes Univers 4 mg tablet 8-22 ity of 00:00: [place] [facility] traMADoL 50 2021-0 Yes Univer s mg tablet 07-12 ity of 00:00: [place] [facility] tiZANidine 2-0 Yes Univers 4 mg tablet 07-12 ity of 00:00: [place] [facility] traMADoL 50 2021-0 Yes Univer s mg tablet 07-12 ity of 00:00: [place] [facility] tiZANidine 2-0 Yes Univers 4 mg tablet 07-12 ity of 00:00: [place] [facility] traMADoL 50 2021-0 Yes Univer s mg tablet 07-12 ity of 00:00: [place] [facility] pantoprazol 2021-0 Yes TAKE 1 Univ ers e 40 mg EC 7-28 TABLET BY ity of tablet 00:00: [facility] DAILY 30 Medical MINUTES Branch BEFORE BREAKFAST OR FIRST MEAL pantoprazol 2021-0 Yes TAKE 1 Univ ers e 40 mg EC 7-28 TABLET BY ity of tablet 00:00: MOUTH [place] DAILY 30 Medical MINUTES Branch BEFORE BREAKFAST [...] MINUTES BEFORE BREAKFAST OR FIRST MEAL TiZANidine 0 Yes 4mg Q.[id number] Take [address] (ZANAFLEX) 6-10 [id number] by mouth 3 [facility]ukes 4 MG 12:13: 3D (three) Medical capsule 34 times Center daily. mINOCYCLine 0 Yes 135mg QD Take [address] (DYNACIN) 6-10 mg by Lukes 100 MG 12:13: mouth Medical tablet 34 daily. Center emollient [address] combination 6-10 topically. Betsy kes no.32 12:13: Medical (EpiCeram) 34 Center Radha pantoprazol Yes 40mg Take [address] e 6-10 by mouth. Lukes (Protonix) 12:10: Medical 20 MG 13 Center tablet traMADoL Yes 50mg Take [address] (ULTRAM) 50 6-10 by mouth. Lissy es mg tablet 12:10: Medical 13 [place] adalimumab Yes 40mg Inject [address] (HUMIRA) 40 6-10 mg Lukes mg/0.8 mL 12:10: subcutaneo Me dical injection 13 [facility]. [place] traMADol traMADol No 1{table QD traMADol HCl [...] MG/ML MG/ML MG/ML PROzac PROzac No PROzac traMADol traMADol No 1{table QD traMADol HCl [...] MG/ML MG/ML MG/ML PROzac PROzac No PROzac traMADol traMADol No 1{table QD traMADol HCl [...] Comments Source height 2022-12-01 08:30:00 70 [in_i] Common S pirit - [facility] weight 2022-12-01 08:30:00 162 [lb_av] Common [facility] temperature 2022-12-01 08:30:00 97.0 [degF] Common [facility] bmi 2022-12-01 08:30:00 23.24 kg/m2 Common [facility] oximetry 2022-12-01 08:30:00 99 % Common [facility] respiratory rate 2022-12-01 08:30:00 18 /min Comm on Spirit - [facility] blood pressure 2022-12-01 08:30:00 135 mm[Hg] Common [facility] - systolic [facility] blood pressure 2022-12-01 08:30:00 83 mm[Hg] Common [facility] - diastolic [facility] Systolic blood 2022-08-12 14:52:00 140 mm[Hg] Univer sity of pressure [facility] Diastolic blood 2022-08-12 14:52:00 80 mm[Hg] Unive rsity of pressure [facility] Heart rate 2022-08-12 14:52:00 102 /min Universi ty [facility] Respiratory rate 2022-08-12 14:30:00 20 /min Univ ersity [facility] Body height 2022-08-12 13:30:00 177.8 cm Universi ty [facility] Body weight 2022-08-12 13:30:00 71.668 kg Universi ty [facility] BMI 2022-08-12 13:30:00 22.67 kg/m2 Universi ty [facility] Systolic blood 2022-07-14 15:00:00 127 mm[Hg] Univer sity of pressure [facility] Diastolic blood 2022-07-14 15:00:00 81 mm[Hg] Unive rsity of pressure [facility] Heart rate 2022-07-14 15:00:00 84 /min Universi ty [facility] Body temperature 2022-07-14 15:00:00 36.78 Shayy Univ ersity of [facility] Respiratory rate 2022-07-14 15:00:00 18 /min Univ ersity of [facility] Body height 2022-07-14 15:00:00 177.8 cm [facility] Body weight 2022-07-14 15:00:00 72.439 kg [facility] BMI 2022-07-14 15:00:00 22.91 kg/m2 [facility] Oxygen saturation in 2022-07-14 15:00:00 99 /min University Arterial blood by [facility] Pulse oximetry Branch Systolic blood 2022-08-20 11:40:00 131 mm[Hg] [facility] Diastolic blood 2022-08-20 11:40:00 81 mm[Hg] [facility] Heart rate 2022-08-20 11:40:00 71 /min [facility] Body temperature 2022-08-20 11:40:00 36.72 Shayy [facility] Body height 2022-08-20 11:40:00 177.8 cm [facility] Body weight 2022-08-20 11:40:00 72.122 kg [facility] BMI 2022-08-20 11:40:00 22.81 kg/m2 [facility] Oxygen saturation in 2022-08-20 11:40:00 99 /min [facility] Arterial blood by Medical Ce nter Pulse oximetry Body temperature 2022-06-01 13:52:00 36.28 Shayy [facility] Body height 2022-06-01 13:52:00 177.8 cm [facility] Body weight 2022-06-01 13:52:00 72.258 kg [facility] BMI 2022-06-01 13:52:00 22.86 kg/m2 [facility] Systolic blood 2022-04-30 11:58:00 129 mm[Hg] [facility] Diastolic blood 2022-04-30 11:58:00 79 mm[Hg] [facility] Heart rate 2022-04-30 11:58:00 76 /min [facility] Oxygen saturation in 2022-04-30 11:58:00 98 /min [facility] Arterial blood by Medical Ce nter Pulse oximetry Procedures Procedure Date / Time Performing Clinician Source Performed HEPATIC FUNCTION PANEL 2022-08-20 12:26:00 Renetta White [facility] CBC W/PLT COUNT & AUTO 2022-08-20 12:26:00 Renetta White [facility] CBC W/PLT COUNT & AUTO 2022-08-20 12:26:00 Renetta White [facility] BASIC METABOLIC PANEL 2022-08-20 12:26:00 Renetta White [facility] COMPLETE ECHOCARDIOGRAM 2022-08-12 15:08:00 David Petty [facility] DOBUTAMINE STRESS TEST W Medical [place] CONTRAST DOBUTAMINE STRESS ECHO 2022-08-12 05:01:00 Doctor Unassigned, Un [facility] [place] [facility] Branch HEPATIC FUNCTION PANEL 2022-06-01 14:28:00 LucyKiel leahy [facility] CBC W/PLT COUNT & AUTO 2022-06-01 14:28:00 LucyKiel leahy [facility] CBC W/PLT COUNT & AUTO 2022-06-01 14:28:00 LucyKiel leahy [facility] CELIAC DISEASE PANEL 2022-04-30 13:14:00 Kiel Prasad [facility] INTERPRETATION 2022-04-30 13:14:00 Kiel Prasad [facility] TISSUE TRANSGLUTAMINASE 2022-04-30 13:14:00 Kiel Prasad [facility] ENDOMYSIAL AB SCR 2022-04-30 13:14:00 LucyKiel leahy [facility] ENDOMYSIAL AB TITER 2022-04-30 13:14:00 LucyKiel leahy [facility] IGA 2022-04-30 13:14:00 Kiel Prasad [facility] TISSUE TRANSGLUTAMINASE 2022-04-30 13:14:00 Kiel Prasad [facility] COMPREHENSIVE METABOLIC 2022-04-30 12:59:00 LucyKiel leahy [facility] BILIRUBIN, DIRECT 2022-04-30 12:59:00 Lucy, Kiel [facility] CBC W/PLT COUNT & AUTO 2022-04-30 12:59:00 Lucy, Kiel [facility] DIFFERENTIAL Center HEPATITIS A ANTIBODY, IGG 2022-04-30 12:59:00 Lucy, Kiel [facility] HEPATITIS B SURFACE 2022-04-30 12:59:00 Lucy, Kiel [facility] ANTIBODY [place] IRON, TIBC, % SAT. 2022-04-30 12:59:00 Lucy, Kiel [facility] (WITHOUT FERRITIN) Center FERRITIN 2022-04-30 12:59:00 Lucy, Kiel [facility] [id number]\, 2022-04-30 12:59:00 Lucy, [facility] SERUM Center CERULOPLASMIN 2022-04-30 12:59:00 Lucy, [facility] ANTI-NUCLEAR ANTIBODY 2022-04-30 12:59:00 Lucy, Kiel [facility] (GLYNN) [place] ACTIN (SMOOTH MUSCLE) 2022-04-30 12:59:00 Lucy [facility] ANTIBODY, IGG Center MITOCHONDRIA M2 ANTIBODY 2022-04-30 12:59:00 Lucy, Kiel [facility] (IGG) Center IMMUNOGLOBULIN G (IGG) 2022-04-30 12:59:00 Lucy, [facility] CBC W/PLT COUNT & AUTO 2022-04-30 12:59:00 Lucy, [facility] DIFFERENTIAL Center Plan of Care Planned Activity Planned Date Details Comments Source Future Scheduled 2023-07-22 Influenza Vaccine (#1) [facility] 00:00:00 [code = Influenza Medical Ce nter Vaccine (#1)] Future Scheduled 2022-11-[address] [facility] Test 00:00:00 (12+) [code = Medical Center DEPRESSION SCREENING (12+)] Future Scheduled 2022-11-[address] [facility] Test 00:00:00 (12+) [code = Medical Center DEPRESSION SCREENING (12+)] Future Scheduled 2022-11-[address] [facility] Test 00:00:00 (12+) [code = Medical Center DEPRESSION SCREENING (12+)] Future Scheduled 2022-11-[address] [...] Test 00:00:00 (procedure) [code = Medical Center [id number]] Future Scheduled [address] [facility] Test 00:00:00 (procedure) [code = Medical Center [id number]] Future Scheduled [address] [facility] Test 00:00:00 (procedure) [code = [facility] [id number]] Future Scheduled [address] [facility] Test 00:00:00 (procedure) [code = [facility] [id number]] Future Scheduled [address] [facility] Test 00:00:00 (procedure) [code = [facility] [id number]] Future Scheduled [address] [facility] Test 00:00:00 (procedure) [code = [facility] [id number]] Future Scheduled [address] [facility] Test 00:00:00 (procedure) [code = [facility] [id number]] Future Scheduled 2009 DTAP/TDAP/TD VACCINES CH I [...] YRS (1 - PCV)] Future Scheduled 1996 Pneumococcal Vaccine: [facility] Test 00:00:00 0-64 Years (1 - PCV) Medical Center [code = Pneumococcal Vaccine: 0-64 Years (1 - PCV)] Future Scheduled 1991-01-12 COVID-19 [...] Scheduled 1991-01-12 COVID-19 VACCINE (#1) CH I [facility] Test 00:00:00 [code = COVID-[address] VACCINE (#1)] Encounters Start End Encounter Admission Attending Care Care Encounter Source Date/Time Date/Time Type Type Clinicians Facility Department ID 2023-05-04 Outpatient [place], STLMLC [facility] [id number] Common 08:22:01 Marco [id number] [facility] 2022-12-01 Outpatient [place], STLMLC [facility] [id number] Common 08:03:02 Marco [id number] [facility] 2022-12-22 2022-12-22 [id number] Co mmon 00:00:00 00:00:[address] [facility] 2022-12-07 2022-12-07 Outside Jed [facility] [id number] 00:00:00 00:00:00 Orders [facility] 2022-12-07 2022-12-07 Outside Jed [facility] [id number] 00:00:00 00:00:00 Orders [facility] 2022-12-02 2022-12-02 (TEL) [facility] [id number] Co mmon 00:00:00 00:00:00 [facility] 2022-12-01 2022-12-01 OFFICE [facility] [id number] Co mmon 00:00:00 00:00:00 VISIT [facility] LEVEL 4 [facility] 2022-08-23 2022-08-23 Telephone Jovanny, UNIVERSIT [id number] Univers 00:00:00 00:00:00 [facility] [id number] i ty of [facility] [id number] Devonte s [id number] [facility] 059 Branch 2022-08-20 2022-08-20 Office Becca Medrano [facility] [id number] [facility] St 11:30:00 12:00:00 [facility] 2022-08-20 2022-08-20 Office Becca Santiago [facility] [id number] [facility] St 11:30:00 12:00:00 Visit Renetta White [facility] 2022-08-18 2022-08-18 Telephone Jovanny, UNIVERSIT 1.2.840.114 [id number] Univers 00:00:00 00:00:00 [facility] [id number] i ty of [facility] [id number] [facility] [id number] [facility] [address] 2022-08-12 2022-08-12 Outpatient R JOVANNY, [facility] [id number] Univers 10:05:44 23:59:00 [facility] 2022-08-12 2022-08-12 Hospital Jovanny, [facility] 1.2.840.114 [id number] Univers 07:43:41 10:04:00 Encounter [facility] [id number] ity of [facility] [id number] [facility] [phone] [facility] [address] 2022-08-09 2022-08-09 Laboratory Only, Adc Test [facility] 1.2.840. 114 [id number] Univers 10:30:00 10:45:00 Only Jovanny, David Earnest [place] 350.1.13 .10 ity [facility] 4.2.7.2.686 [facility] [id number] [facility] [address] 2022-08-09 2022-08-09 Outpatient R JOVANNY, [facility] [id number] Univers 10:30:00 10:30:00 [facility] 2022-08-02 2022-08-02 Telephone Jovanny, [facility] 1.2.840.114 [id number] Univers 00:00:00 00:00:00 [facility] [id number] i [place] of [facility] [id number] [address] 2022-07-22 2022-07-22 Telephone [facility]anny, [facility] 1.2.840.114 [id number] Univers 00:00:00 00:00:00 [facility] [id number] i [place] of [facility] [id number] [address] 2022-07-21 2022-07-21 Telephone Jovanny, [facility] 1.2.840.114 [id number] Univers 00:00:00 00:00:00 [facility] [id number] i ty of [facility] [id number] [address] 2022-07-20 2022-07-20 [facility] [id number] 00:00:00 00:00:00 [facility] 2022-07-20 2022-07-20 [facility] [id number] 00:00:00 00:00:00 [facility] 2022-07-19 2022-07-19 Abstract Deisy [facility] [id number] 00:00:00 00:00:00 [facility] 2022-07-19 2022-07-19 Abstract Deisy [facility] [id number] 00:00:00 00:00:00 [facility] 2022-07-19 2022-07-19 Telephone Jovanny, [facility] 1.2.840.114 [id number] Univers 00:00:00 00:00:00 [facility] 350.1.13.10 i ty of [facility] [id number] [address] 2022-07-14 2022-07-14 Skein Yarn Drier [facility] 1.2.840.114 [id number] Univers 10:45:00 11:00:00 [facility] 350.1.13 .10 ity of [facility] [place] [id number] [facility] [address] 2022-07-14 2022-07-14 Outpatient R JOVANNY, [facility] [id number] Univers 10:45:00 10:45:00 [facility] 2022-07-14 2022-07-14 Outpatient R JOVANNY, [facility] [id number] Univers 10:45:00 10:45:00 [facility] 2022-07-14 2022-07-14 Office Jovanny, [facility] [id number] [id number] Univers 10:00:00 10:30:00 Visit [facility] 350.1.13.10 i ty of [facility] [place] [id number] [facility] [address] 2022-07-14 2022-07-14 Orders Doctor ALCIDES 1.2.840.114 [id number] Univers 00:00:00 00:00:00 Only Unassigned, THUY 350.1.13.10 ity of [place] [facility] 4.2.7.2.686 Holger as [id number] [facility] [address] 2022-06-02 2022-06-02 Telephone Dakota [facility] [id number] 00:00:00 00:00:00 [facility] 2022-06-02 2022-06-02 Telephone Dakota [facility] [id number] 00:00:00 00:00:00 Keny[place]apetra caba [facility] 2022-06-01 2022-06-01 Office Kiel Gamboa [facility] [id number] 13:30:00 14:00:00 Visit [facility] 2022-06-01 2022-06-01 Office Kiel Prasad [facility] [id number] 13:30:00 14:00:00 Visit [facility] 2022-05-31 2022-05-31 Telephone Ranulfo [facility] [id number] 00:00:00 00:00:00 [facility] 2022-05-31 2022-05-31 Telephone Ranulfo [facility] [id number] 00:00:00 00:00:00 [facility] 2022-05-13 2022-05-13 Telephone Pradip [facility] [id number] 00:00:00 00:00:00 Lorraine [facility] 2022-05-05 2022-05-05 Documentat Shane [facility] [id number] 00:00:00 00:00:[address] [facility] 2022-04-30 2022-04-30 Office BRITTANIE Prasad Kiel [facility] [id number] 12:00:00 13:00:[address] [facility] 2022-04-30 2022-04-30 Outpatient KIEL GAMBOA [facility] [id number] SLE 00:00:00 00:00:00 2022-04-30 2022-04-30 Documentat [place] [facility] [id number] 00:00:00 00:00:[address] [facility] 2022-01-09 2022-01-09 Outpatient Katy COVARRUBIAS [facility] [id number] Univers 13:20:00 13:35:25 ELVIS [facility] 2022-01-09 2022-01-09 Nurse Nurse, [facility] 1.2.840.114 [id number] [facility] 13:20:00 13:35:25 [facility] 350.1.13.10 [facility] 4.2.7.2.686 [place] as LIZANDRO?BLEA [id number] [address] MEDICAL OFFICE BUILDING 2021-03-14 2021-03-14 Urgent Provider, [facility] 1.2.840.114 [id number] [facility] 10:21:38 10:41:38 [facility] 350.1.13.10 [facility] 4.2.7.2.686 [place] as Guillaume [id number] [place] [address] [address] One 2021-03-14 2021-03-14 Outpatient R ELSA [facility] [id number] Univers 10:20:00 10:20:00 ALCIDES [facility] Results Test Description Test Time [...] (test code = 347) 47 U/L 6-55 Interpreter And Translator ID - MITCHBASIC METABOLIC [id number] 13:28:45 Test Item Value Reference Range Interpretation [...] not appl icable for dialysis patien ts Interpreter And Translator ID - MITCHCBC W/PLT COUNT & AUTO [id number] 12:59:37 Test Item Value Reference Range Interpretation [...] (test code = 2801) Echocardiogram dobutamine stress [id number] 16:30:01 Test Item Value Reference Range Interpretation Comments Height (test code = in 5403891787) Weight (test code = lbs 0468422989) Systolic BP (test mmHg code = 4471057415) Diastolic BP (test mmHg code = 8866630155) Heart Rate (test bpm code = 8491089737) BSA (test code = 1.89 m2 4773790663) Radiology Study observation (narrative) (test code = 98395-4) DAVID (test code = Table formatting from [...] negative stress echocardiography study for inducible ischemia. [facility] [id number] 17:03:09 Test Item Value Reference Range Interpretation [...] Specimen slightly (test code = 347) hemolyzed Interpreter And Translator ID - BSCBC W/PLT COUNT & AUTO [id number] 16:48:26 Test Item Value Reference Range Interpretation [...] method.Test performed by IFA method.HEPATITIS A ANTIBODY, [id number] 15:39:02 Test Item Value Reference Range Interpretation Comments HEPATITIS A IGG ANTIBODY (BEAKER) Nonreactive Nonreactive (test code = 2797) Interpreter And Translator ID - BSHEPATITIS B SURFACE [id number] 15:38:57 Test Item Value Reference Range Interpretation Comments HEPATITIS B SURFACE ANTIBODY 694.4 mIU/mL <8.0 H (BEAKER) (test code = 647) Interpreter And Translator ID - [id number] 15:18:35 Test Item Value Reference Range Interpretation Comments ALPHA-1 ANTITRYPSIN (BEAKER) 133.20 mg/dL 90.00-200.00 (test code = 502) Interpreter And Translator ID - LEOBARDO MOperator ID - BSIMMUNOGLOBULIN G (IGG)2022-04-30 15:18:20 Test Item Value Reference Range Interpretation Comments IMMUNOGLOBULIN G (IGG) 1176 mg/dL See_Comment [Aut omated message] (BEAKER) (test code = The sy stem which 427) generated this result transmit ricarda reference range : 540-1,822. The reference range was not used to interpret this result as normal/abnormal . Interpreter And Translator ID - [id number] 15:03:13 Test Item Value Reference Range Interpretation Comments FERRITIN (BEAKER) (test code = 151.93 ng/mL 5.00-275.00 361) Interpreter And Translator ID - BSCOMPREHENSIVE METABOLIC [id number] 14:45:00 Test Item Value Reference Range Interpretation [...] 1092) DATA TO CALCULA TE ESTIMATED GFR. Interpreter And Translator ID - LEOBARDO ILYA, [id number] 14:42:46 Test Item Value Reference Range Interpretation Comments BILIRUBIN DIRECT (BEAKER) (test 0.3 mg/dL 0.1-0.5 code = 706) Interpreter And Translator ID - LEOBARDO ALFREDO, TIBC, % SAT. (WITHOUT FERRITIN)2022-04-30 14:42:46 Test Item Value Reference Range Interpretation Comments IRON (BEAKER) (test code = 547) 95.0 ug/dL 40.0-160.0 TOTAL IRON BINDING CAPACITY 315 ug/dL 250-450 (BEAKER) (test code = 769) IRON % SATURATION (2) (BEAKER) 30 % 20-55 (test code = 2590) Interpreter And Translator ID - LEOBARDO MCBC W/PLT COUNT & AUTO [id number] 14:28:04 Test Item Value Reference Range Interpretation [...] % 0-1 PERCENT (BEAKER) (test code = 2803)
[2023-05-24 14:18] LABS: Absolute Lymphocytes (CBC) 1.5 K/uL (0.7-4.9); Lymphocytes % 21.4 % (15.3-44.8); MCV 93.3 fL (80-100); MPV 7.3 fL (7.6-11.3); RBC Red Blood Cell Count 5.36 M/uL (4.33-5.43)
[2023-05-24 14:32] LABS: Albumin 4.2 g/dL (3.4-5.0); Bilirubin Total 0.7 mg/dL (0.2-1.0); Potassium 3.9 mEq/L (3.5-5.1); Protein, Total 8.3 g/dL (6.4-8.2)
--- NOTE | 2023-05-24 15:07 | RAD REPORT ---
EXAM DESCRIPTION: CT - Pelvis W/Cont - 05/24/2023 2:39 pm CLINICAL HISTORY: left groin swelling, pain COMPARISON: No comparisons TECHNIQUE: Thin cut axial CT imaging of the pelvis was performed following intravenous administratio n of 95 mL Isovue 300. Multiplanar reformats were generated and reviewed. All CT scans are performed using dose optimization technique as appropriate and may include automated exposure control or mA/KV adjustment according to patient size. FINDINGS: Mild skin thickening at the base of the scrotum anteriorly more so on the left. No underly ing significant subcutaneous tissue inflammatory changes or fluid collections. No dilated bowel loops or bowel wall thickening. Surgical clips along the cecal bulb may relate to se quelae of prior appendicectomy. No free air, free fluid or inflammatory stranding. No hernia, mass or bulky lymphadenopathy. The urinary bladder is without significant finding. No suspicious bony findings. IMPRESSION: Mild skin thickening at the base of the scrotum anteriorly could relate to cellulitis. N o evidence of inflammatory changes in the deeper soft tissues or abnormal fluid collections.
--- NOTE | 2023-05-24 15:39 | EDPHYS ---
Physician Documentation [facility] Name: John Hoffmann Age: 32 yrs Sex: Male : 1990 Arrival Date: 05/24/2023 Time: 13:35 Bed 19 Private MD: ED Physician Kiran Corcoran HPI: 05/24 13:46 This 32 yrs old Male presents to ER via Ambulatory with complaints of Testicular jmm Problem. 13:46 The patient presents with swelling. Onset: The symptoms/episode began/occurred jmm gradually, 1 week(s) ago. Is a 32-year-old male with history of chronic back pain, ankylosing spondylitis, depression, GERD the presents emerged department with complaints of left groin pain symptoms began approximately 3 months ago but states over the past week he has noticed some swelling. Yesterday became very painful to walk. Denies fever. Historical: - Allergies: 13:52 No Known Allergies; nj1 - PMHx: 13:52 chronic back pain; GERD; Ankylosing Spondylitis; Depressive disorder; Eczema; nj1 - PSHx: 13:52 Appendectomy; Cholecystectomy; nj1 - Immunization history:: Client reports having NOT received the Covid vaccine. - Social history:: Smoking status: Patient reports the use of cigarette tobacco products, denies chronic smoking, but will smoke occasionally. ROS: 13:46 Constitutional: Negative for fever, chills, and weight loss, Cardiovascular: Negative jmm for chest pain, palpitations, and edema, Respiratory: Negative for shortness of breath, cough, wheezing, and pleuritic chest pain. 13:46 Skin: Positive for erythema. 13:46 All other systems are negative. Exam: 13:46 Constitutional: This is a well developed, well nourished patient who is awake, alert, jmm and in no acute distress. Head/Face: atraumatic. Eyes: EOMI, no conjunctival erythema appreciated ENT: Moist Mucus Membranes Neck: Trachea midline, Supple Chest/axilla: Normal chest wall appearance and motion. Cardiovascular: Regular rate and rhythm. No edema appreciated Respiratory: Normal respirations, no respiratory distress appreciated Abdomen/GI: Non distended Back: Normal ROM 13:46 Skin: mild erythema noted to the left groin. 13:46 Neuro: Orientation: is normal, Mentation: is normal, Memory: is normal. 13:46 Psych: Behavior/mood is pleasant, cooperative. Vital Signs: 13:38 BP 136 / 92; Pulse 61; Resp 18; Temp 97.9(O); Pulse Ox 98% on R/A; Weight 79.38 kg; nj1 Height 5 ft. 10 in. ; Pain 7/10; 15:50 BP 131 / 85; Pulse 67; Resp 16; Pulse Ox 99% ; bp 13:38 Body Mass Index 25.11 (79.38 kg, 177.8 cm) [facility] 13:38 Pain Scale: Adult [facility] MDM: 13:46 Patient medically screened. [facility] 15:50 Data reviewed: vital signs, nurses notes. [facility] 05/24 13:49 Order name: CBC with Diff; Complete Time: 14:33 [facility] 05/24 13:49 Order name: CMP; Complete Time: 14:33 [facility] 05/24 13:49 Order name: Lipase; Complete Time: 14:33 [facility] 05/24 13:49 Order name: CT Pelvis w cont; Complete Time: 15:10 [facility] 05/24 13:49 Order name: IV Saline Lock; Complete Time: 14:03 [facility] 05/24 13:49 Order name: Labs collected and sent; Complete Time: 14:03 [facility] Administered Medications: 15:48 Drug: Doxycycline PO 100 mg Route: PO; bp 15:49 Follow up: Response: No adverse reaction bp Disposition: 21:10 Co-signature as Attending Physician, Kiran Corcoran MD I reviewed the patient's care rt provided by the Advanced Practice Provider and agree with the diagnosis and treatment plan. Disposition Summary: 05/24/23 15:38 Discharge Ordered Location: Home [facility] Condition: Stable [facility] Diagnosis - Cutaneous cellulitis of the groin [facility] Followup: [facility] - With: Arthur Adkins MD - When: 2 - 3 days - Reason: Recheck today's complaints, Continuance of care, Re-evaluation by your physician Discharge Instructions: - Discharge Summary Sheet [facility] - Cellulitis, Adult [facility] Forms: - Medication Reconciliation Form [facility] - Thank You Letter [facility] - Antibiotic Education [facility] - Prescription Opioid Use [facility] - [email or web address] [facility] Prescriptions: - Doxycycline Hyclate 100 mg Oral Tablet - take 1 tablet by ORAL route every 12 hours; 20 tablet; Refills: 0, Product [facility] Selection Permitted Signatures: Dispatcher [employer] Tres Marmolejo PA PA jmm Peltier, Brian, RN RN bp Kiran Corcoran MD MD rt Cherelle Weir RN RN nj1
--- NOTE | 2023-05-24 15:39 | ER ---
Nurse's Notes [facility] Name: John Hoffmann Age: 32 yrs Sex: Male : 1990 Arrival Date: 05/24/2023 Time: 13:35 Bed 19 Private MD: Diagnosis: Cutaneous cellulitis of the groin Presentation: 05/24 13:38 Chief complaint: Patient states: Left side groin pain, close to base of penis. Pt nj1 states he noted a scratch/cut about a week ago, has been doctoring it at home, yesterday it became painful making it hard for him to walk. 13:38 Coronavirus screen: Vaccine status: Patient reports being unvaccinated. Ebola Screen: nj1 Patient denies travel to an Ebola-affected area in the 21 days before illness onset. Initial Sepsis Screen: Does the patient meet any 2 criteria? No. Patient's initial sepsis screen is negative. Does the patient have a suspected source of infection? No. Patient's initial sepsis screen is negative. Risk Assessment: Do you want to hurt yourself or someone else? Patient reports no desire to harm self or others. Onset of symptoms was May 17, 2023. 13:38 Method Of Arrival: Ambulatory [facility] 13:38 Acuity: FRENCH 3 nj1 Triage Assessment: 13:45 General: Appears uncomfortable, Behavior is calm, cooperative, appropriate for age. bp Pain: Complains of pain in pelvis. EENT: No deficits noted. Neuro: No deficits noted. Historical: - Allergies: 13:52 No Known Allergies; nj1 - PMHx: 13:52 chronic back pain; GERD; Ankylosing Spondylitis; Depressive disorder; Eczema; nj1 - PSHx: 13:52 Appendectomy; Cholecystectomy; nj1 - Immunization history:: Client reports having NOT received the Covid vaccine. - Social history:: Smoking status: Patient reports the use of cigarette tobacco products, denies chronic smoking, but will smoke occasionally. Screenin:50 [facility] ED Fall Risk Assessment (Adult) History of falling in the last 3 months, bp including since admission No falls in past 3 months (0 pts). Abuse screen: Denies threats or abuse. Denies injuries from another. Nutritional screening: No deficits noted. Tuberculosis screening: No symptoms or risk factors identified. Assessment: 13:45 General: SEE TRIAGE NOTE. bp 15:50 Reassessment: DC HOME AMBULATORY. bp Vital Signs: 13:38 BP 136 / 92; Pulse 61; Resp 18; Temp 97.9(O); Pulse Ox 98% on R/A; Weight 79.38 kg; nj1 Height 5 ft. 10 in. ; Pain 7/10; 15:50 BP 131 / 85; Pulse 67; Resp 16; Pulse Ox 99% ; bp 13:38 Body Mass Index 25.11 (79.38 kg, 177.8 cm) [facility] 13:38 Pain Scale: Adult [facility] ED Course: 13:37 Patient arrived in ED. ts1 13:37 Tres Garay PA is PHCP. [facility] 13:37 Kiran Corcoran MD is Attending Physician. [facility] 13:51 Radiology exam delayed due to IV insertion attempt and/or patient not having jg10 appropriate IV at this time. 13:[address] [facility] 13:53 Arm band placed on right wrist. [facility] 13:55 Earl Blanco, RN is Primary Nurse. bp 14:03 Inserted saline lock: 20 gauge in right antecubital area, using aseptic technique. bp Blood collected. 14:41 CT Pelvis w cont In Process Unspecified. EDMS 15:38 Arthur Adkins MD is Referral Physician. [facility] 15:50 Patient has correct armband on for positive identification. Bed in low position. Call bp light in reach. Side rails up X2. 15:50 No provider procedures requiring assistance completed. IV discontinued, intact, bp bleeding controlled, No redness/swelling at site. Pressure dressing applied. Administered Medications: 15:48 Drug: Doxycycline PO 100 mg Route: PO; bp 15:49 Follow up: Response: No adverse reaction bp Medication: 15:50 VIS not applicable for this client. bp Outcome: 15:38 Discharge ordered by . jmm 15:50 Discharged to home ambulatory. bp 15:50 Condition: stable 15:50 Discharge instructions given to patient, Instructed on discharge instructions, follow up and referral plans. medication usage, Demonstrated understanding of instructions, follow-up care, medications, Prescriptions given X 1. 15:51 Patient left the ED. bp Signatures: Dispatcher [employer] EDMS Tres Garay PA PA jmm Peltier, Brian, RN RN bp Mili Davis jg10 Cherelle Weir RN RN nj1 Lizzie Garcia, PAS PAS ts1
[2023-05-24] MEDS ORDERED: DOXYCYCLINE 100 MG CAP PO ONE (15:55)
[2023-05-24 16:16] VITALS: TEMP 97.9
[2023-05-24 16:19] VITALS: BP 131/85; O2SAT 99
== END 2023-05-24 15:51 | disposition home or self-care (01) ==
LOC: ER 13:35
DX: L03.314 Cellulitis of groin (principal); F17.210 Nicotine dependence, cigarettes, uncomplicated
CPT/HCPCS: 85025; 36415; 83690; 80053; 72193; 99284; Q9967

== ENCOUNTER 2024-03-01 10:31 | Emergency (ER) | payer OTHER ==
--- NOTE | 2024-03-01 11:20 | RAD REPORT ---
EXAM DESCRIPTION: CT - Spine Lumbar Wo Con - 03/01/2024 11:10 am CLINICAL HISTORY: back contusion/trauma COMPARISON: Thoracic Spine W/o Cont dated 03/01/2024 TECHNIQUE: Axial noncontrast CT imaging of the lumbar spine was performed with coronal and sagittal re-formatted images. All CT scans are performed using dose optimization technique as appropriate and may include automated exposure control or mA/KV adjustment according to patient size. FINDINGS: No acute lumbar spine fracture seen. No aggressive marrow pattern or malalignment. Appende ctomy. Probable cholecystectomy. Paraspinal tissues are normal in thickness. No paraspinal abscess or hematoma seen. Intervertebral disc disease assessment is inherently limited by CT. Within these limitations, no high -grade canal stenosis suspected. IMPRESSION: No fracture or malalignment of the lumbar spine.
--- NOTE | 2024-03-01 11:21 | RAD REPORT ---
EXAM DESCRIPTION: CT - Thoracic Spine W/o Cont - 03/01/2024 11:12 am CLINICAL HISTORY: Radiculopathy. blunt back trauma COMPARISON: No comparisons TECHNIQUE: Axial CT imaging through the thoracic spine was performed with coronal and sagittal re-fo rmatted images. All CT scans are performed using dose optimization technique as appropriate and may include automated exposure control or mA/KV adjustment according to patient size. FINDINGS: Vertebral body heights and disc spaces are maintained. A compression fracture is not prese nt. No significant disc space narrowing. Thoracic spine alignment is within normal limits. No paraspinal masses or hematoma. Intervertebral disc detail is inherently limited on CT without gross findings of canal compromise. IMPRESSION: No fracture or malalignment of the thoracic spine identified.
--- NOTE | 2024-03-01 11:40 | EDPHYS ---
Physician Documentation [facility] Name: John Hoffmann Age: 33 yrs Sex: Male : 1990 Arrival Date: 03/01/2024 Time: 10:31 Bed 11 Private MD: Marco Arevalo ED Physician Elie Pittman HPI: 03/01 11:30 This 33 yrs old Male presents to ER via Ambulatory with complaints of Back Pain. rn 11:30 The patient presents with pain that is acute. The symptoms are located in the thoracic rn area and lumbar area. Onset: The symptoms/episode began/occurred 11 day(s) ago. The pain does not radiate. Associated signs and symptoms: Pertinent negatives: abdominal pain, chest pain, fever, hematuria, incontinence, numbness, tingling, urinary retention, vomiting, weakness. The problem was sustained from a direct blow. Modifying factors: The patient symptoms are alleviated by nothing, the patient symptoms are aggravated by any movement, bending. Severity of symptoms: At their worst the symptoms were moderate, in the emergency department the symptoms have improved. The patient has not experienced similar symptoms in the past. Patient reports accidentally struck his back on the sharp edge approximately 11 days ago. Had immediate back pain that was moderate, slowly improving but still not gone. No bruising.. Historical: - Allergies: 10:43 No Known Allergies; ll1 - PMHx: 10:43 Ankylosing Spondylitis; chronic back pain; depressive disorder; eczema; GERD; ll1 - PSHx: 10:43 Appendectomy; Cholecystectomy; ll1 - Immunization history:: Adult Immunizations up to date. - Infectious Disease History:: Denies. - Social history:: Smoking status: Reported history of juuling and/or vaping. Patient/guardian denies using tobacco, Stopped _ months ago .1. - Family history:: not pertinent. - Hospitalizations: : No recent hospitalization is reported. ROS: 11:34 Constitutional: Negative for fever, chills, and weight loss, Cardiovascular: Negative rn for chest pain, palpitations, and edema, Respiratory: Negative for shortness of breath, cough, wheezing, and pleuritic chest pain, Abdomen/GI: Negative for abdominal pain, nausea, vomiting, diarrhea, and constipation, Back: Positive for back pain after injury MS/Extremity: Negative for injury and deformity, Skin: Negative for injury, rash, and discoloration, Neuro: Negative for headache, weakness, numbness, tingling, and seizure, Exam: 11:34 Constitutional: This is a well developed, well nourished patient who is awake, alert, rn and in no acute distress. Ambulatory to triage without assistance Cardiovascular: Regular rate and rhythm. No pulse deficits. Respiratory: No increased work of breathing, no retractions or nasal flaring. Abdomen/GI: Soft, nontender Back: Mild paraspinal tenderness lower thoracic upper lumbar region. No ecchymosis or crepitus. No rib tenderness Neuro: Awake and alert, GCS 15. Cranial nerves II-XII grossly intact. Motor strength 5/5 in all extremities. Sensory grossly intact. Cerebellar exam normal. Normal gait. Vital Signs: 10:52 BP 146 / 82; Pulse 96; Resp 16; Temp 97.5; Pulse Ox 100% ; Pain 6/10; ll1 12:31 BP 123 / 84; Pulse 67; Resp 18; Temp 97.8; Pulse Ox 100% ; ph 10:52 Pain Scale: Adult ll1 MDM: 10:45 Patient medically screened. rn 11:35 Differential diagnosis: Fatigue Fracture ruptured disc, spinal injury, sprain, rn vertebral fracture, Muscle contusion, back contusion. Data reviewed: vital signs, nurses notes, radiologic studies, CT scan, and as a result, I will discharge patient. Counseling: I had a detailed discussion with the patient and/or guardian regarding the historical points, exam findings, and any diagnostic results supporting the discharge/admit diagnosis, radiology results, the need for outpatient follow up, to return to the emergency department if symptoms worsen or persist or if there are any questions or concerns that arise at home. 11:38 ED course: No acute findings and CT thoracic or lumbar spine. I have personally rn reviewed all of the results, including but not limited to imaging deemed necessary to safely discharge this patient at this time. All results given to and printed out for patient. I personally went over all the results with the patient and answered all questions. Patient will follow-up with PCP and or specialist as discussed. Return precautions given and understood.. 03/01 10:55 Order name: CT Thoracic Spine Wo Cont; Complete Time: 11:30 rn 03/01 10:55 Order name: CT Lumbar Spine Wo Con; Complete Time: 11:30 rn Administered Medications: No medications were administered Disposition Summary: 03/01/24 11:39 Discharge Ordered Notes: Location: Home rn Problem: new rn Symptoms: have improved rn Condition: Stable rn Diagnosis - Contusion of back wall of thorax rn Followup: rn - With: Private Physician - When: As needed - Reason: Recheck today's complaints, Re-evaluation by your physician Discharge Instructions: - Discharge Summary Sheet rn - Contusion rn Forms: - Medication Reconciliation Form rn - Thank You Letter rn - Antibiotic rn neonatal icu - Prescription Opioid Use rn - Patient Portal Instructions rn - Leadership Thank You Letter rn Prescriptions: - Cyclobenzaprine 10 mg Oral tablet - take 1 tablet ORAL route every 8 hours As needed; 12 tablet; Refills: 0, rn Product Selection Permitted Signatures: Dispatcher [employer] EDElie Benitez MD MD rn Hall, Patricia, RN RN ph Lewis, Lynsay, RN RN ll Corrections: (The following items were deleted from the chart) 11:35 11:34 Constitutional: This is a well developed, well nourished patient who is awake, rn alert, and in no acute distress. Ambulatory to triage without assistance rn 11:35 11:34 Constitutional: This is a well developed, well nourished patient who is awake, rn alert, and in no acute distress. Ambulatory to triage without assistance Cardiovascular: Regular rate and rhythm. No pulse deficits. Respiratory: No increased work of breathing, no retractions or nasal flaring. Abdomen/GI: Soft, nontender Back: Mild paraspinal tenderness lower thoracic upper lumbar region. No ecchymosis or crepitus. No rib tenderness rn
--- NOTE | 2024-03-01 11:40 | ER ---
Nurse's Notes [facility] Name: John Hoffmann Age: 33 yrs Sex: Male : 1990 Arrival Date: 03/01/2024 Time: 10:31 Bed 11 Private MD: Marco Arevalo Diagnosis: Contusion of back wall of thorax Presentation: 03/01 10:52 Chief complaint: Patient states: Hit mid back on metal shelf 10 days ago. Still has ll1 significant back pain since. Coronavirus screen: Client denies travel out of the [place] in the last 14 days. At this time, the client does not indicate any symptoms associated with coronavirus-19. Ebola Screen: Patient denies travel to an Ebola-affected area in the 21 days before illness onset. Initial Sepsis Screen: Does the patient meet any 2 criteria? No. Patient's initial sepsis screen is negative. Does the patient have a suspected source of infection? No. Patient's initial sepsis screen is negative. Risk Assessment: Do you want to hurt yourself or someone else? Patient reports no desire to harm self or others. Onset of symptoms was February 20, 2024. 10:52 Method Of Arrival: Ambulatory ll1 10:52 Acuity: FRENCH 4 ll1 Triage Assessment: 10:53 General: Appears uncomfortable, Behavior is calm, cooperative, appropriate for age. ll1 Pain: Complains of pain in back Pain currently is 6 out of 10 on a pain scale. Quality of pain is described as aching, sharp. Musculoskeletal: Circulation, motion, and sensation intact. Capillary refill < 3 seconds, Reports pain in mid back. Injury Description: Bruise. Historical: - Allergies: 10:43 No Known Allergies; ll1 - PMHx: 10:43 Ankylosing Spondylitis; chronic back pain; depressive disorder; eczema; GERD; ll1 - PSHx: 10:43 Appendectomy; Cholecystectomy; ll1 - Immunization history:: Adult Immunizations up to date. - Infectious Disease History:: Denies. - Social history:: Smoking status: Reported history of juuling and/or vaping. Patient/guardian denies using tobacco, Stopped _ months ago .1. - Family history:: not pertinent. - Hospitalizations: : No recent hospitalization is reported. Screenin:30 [facility] ED Fall Risk Assessment (Adult) History of falling in the last 3 months, ph including since admission No falls in past 3 months (0 pts). Abuse screen: Denies threats or abuse. Denies injuries from another. Nutritional screening: No deficits noted. Tuberculosis screening: No symptoms or risk factors identified. Assessment: 12:30 General: Appears in no apparent distress. comfortable, well groomed, Behavior is calm, ph cooperative, appropriate for age. Pain: Complains of pain in lumbar area and thoracic area. Neuro: Level of Consciousness is awake, alert, obeys commands, Oriented to person, place, time, situation. Cardiovascular: Capillary refill < 3 seconds in bilateral fingers Patient's skin is warm and dry. Derm: Skin is pink, warm \T\ dry. Musculoskeletal: Circulation, motion, and sensation intact. Range of motion: intact in all extremities. Vital Signs: 10:52 BP 146 / 82; Pulse 96; Resp 16; Temp 97.5; Pulse Ox 100% ; Pain 6/10; ll1 12:31 BP 123 / 84; Pulse 67; Resp 18; Temp 97.8; Pulse Ox 100% ; ph 10:52 Pain Scale: Adult ll1 ED Course: 10:32 Patient arrived in ED. rg4 10:32 Marco Arevalo MD is Private Physician. rg4 10:43 Arm band placed on. ll1 10:45 Elie Pittman MD is Attending Physician. rn 10:53 Triage completed. ll1 11:12 CT Thoracic Spine Wo Cont In Process Unspecified. EDMS 11:12 CT Lumbar Spine Wo Con In Process Unspecified. EDMS 12:20 Kathy Sterling, RN is Primary Nurse. ph 12:31 No provider procedures requiring assistance completed. Patient did not have IV access ph during this emergency room visit. 12:32 Patient has correct armband on for positive identification. Bed in low position. Call ph light in reach. Side rails up X 1. Administered Medications: No medications were administered Medication: 12:31 VIS not applicable for this client. ph Outcome: 11:39 Discharge ordered by . rn 12:49 Patient left the ED. ph 12:49 Discharged to home ambulatory, ph 12:49 Condition: good 12:49 Discharge instructions given to patient, Instructed on discharge instructions, follow up and referral plans. Demonstrated understanding of instructions, follow-up care, medications, Prescriptions given X 1, Signatures: Dispatcher [employer] Elie Ayala MD MD rn Kathy Sterling RN RN gama Small, Monica marshall4 Naveen Anne RN RN ll1
[2024-03-01 14:36] VITALS: BP 123/84; TEMP 97.8; O2SAT 100
== END 2024-03-01 12:49 | disposition home or self-care (01) ==
LOC: ER 10:31
DX: S20.229A Contusion of unspecified back wall of thorax, initial encounter (principal)
CPT/HCPCS: 72128; 72131; 99283